=== PATIENT | female | born 1930 | race Caucasian/White ===

== ENCOUNTER 2017-10-21 07:59 | Inpatient (IN) ==
[2017-10-21] MEDS ORDERED: INFLUENZA VIRUS VACCINE 0.5 ML SYRINGE IM ONE (08:57)
[2017-10-21] MEDS ORDERED: BISACODYL 5 MG TABLET PO PRN (09:43)
[2017-10-21] MEDS ORDERED: ONDANSETRON 4 MG/2 ML VIAL IV PRN (09:43)
[2017-10-21] MEDS ORDERED: guaiFENesin/DM ER 600-30 MG TABLET PO PRN (09:43)
[2017-10-21] MEDS ORDERED: MAGNESIUM SULF RIDER 2 GM in PREMIX 1 EACH IV PRN (09:43)
[2017-10-21] MEDS ORDERED: diphenhydrAMINE CAP 25 MG CAPSULE PO PRN (09:43)
[2017-10-21] MEDS ORDERED: ZALEPLON 5 MG CAPSULE PO PRN (09:43)
[2017-10-21] MEDS ORDERED: MAGNESIUM SULF RIDER 4 GM in PREMIX 1 EACH IV PRN (09:43)
[2017-10-21 10:16] LABS: Basophils # 0.1 10*3/uL (0.0-0.2); Basophils % 0.5 % (0.0-0.8); Eosinophils # 0.1 10*3/uL (0.0-0.87); Eosinophils % 0.6 % (0.00-10.9); Hematocrit 40.7 VOL% (35.7-47.0); Hemoglobin 13.7 GM/DL (12.0-16.0); Immature Granulocytes % 0.4 %; Immature Granulocytes Absolute 0.05 #; Lymphocytes # 1.3 10*3/uL (1.4-4.0); Lymphocytes % 10.2 % (21.3-54.2); Mean Corpuscular HGB Conc 33.7 GM/DL (32-36); Mean Corpuscular Hemoglobin 32 PG (27-34); Mean Corpuscular Volume 93.8 FL (87-102); Mean Platelet Volume 9.7 FL (9.6-12.0); Monocytes # 1.2 10*3/uL (0.11-0.8); Monocytes % 8.8 % (1.7-12.7); Neutrophils # 10.4 10*3/uL (1.4-7.4); Neutrophils % 79.5 % (38.7-73.9); Platelet Count 334 T/CUMM (130-400); Red Blood Count 4.34 MC/CUMM (3.8-5.5); Red Cell Distribution Width 14.2 % (9.3-17.3); White Blood Count 13.1 T/CUMM (4-12)
[2017-10-21 10:48] LABS: Albumin 3.5 G/DL (3.4-5.0); Bilirubin,Total 0.7 MG/DL (0.2-1.0); Calcium 8.7 MG/DL (8.5-10.1); Osmolality,Calculated 280.4 MOS/KG (273-304); Potassium 3.8 MMOL/L (3.5-5.1); Total Protein 7.4 G/DL (6.4-8.3)
[2017-10-21 10:49] LABS: Troponin I Only < 0.015 NG/ML (0.00-0.045)
[2017-10-21] MEDS: ENOXAPARIN 40 MG/0.4 ML SYRINGE SUBCUT SCH (12:47)
[2017-10-21 13:09] LABS: Apearance,Urine CLEAR (Clear); Bacteria,Urine Occasional /HPF (Few); Bilirubin,Urine Negative (Negative); Blood, Urine Small mg/dL (Negative); Glucose,Urine (UA) Negative (Negative); Ketones,Urine Negative (Negative); Mucus,Urine Occasional /LPF (Occasional); Nitrite,Urine Negative (Negative); Protein,Urine Negative; RBC,Urine 1 /HPF (0-4); Squamous Epithelial Cell,Urine Occasional /HPF (0-10); Urine Color Yellow (Yellow); Urine Specific Gravity 1.028 (1.001-1.035); Urine Urobilinogen < 2.0 EU/DL (0.2-1.0); WBC,Urine 1 /HPF (0-6)
[2017-10-21 13:53] LABS: Troponin I Only < 0.015 NG/ML (0.00-0.045)
[2017-10-21] MEDS: FUROSEMIDE 40 MG/4 ML VIAL IV SCH (15:37)
[2017-10-21] MEDS ORDERED: MAGNESIUM SULF RIDER 2 GM in PREMIX 1 EACH IV ONE (15:37)
[2017-10-21 17:33] LABS: Troponin I Only < 0.015 NG/ML (0.00-0.045)
[2017-10-21] MEDS ORDERED: ATORVASTATIN 20 MG TABLET PO SCH (21:00)
[2017-10-21] MEDS: LOSARTAN 50 MG TABLET PO SCH (21:18)
[2017-10-21] MEDS: ACETAMINOPHEN 325 MG TABLET PO PRN (21:18)
[2017-10-21] MEDS: GLIMEPIRIDE 2 MG TABLET PO SCH (21:19)
[2017-10-21] MEDS: LEVOTHYROXINE 100 MCG TABLET PO SCH (21:19)
[2017-10-21] MEDS: CARVEDILOL 3.125 MG TABLET PO SCH (21:19)
[2017-10-21] MEDS: EZETIMIBE 10 MG TABLET PO SCH (21:19)
[2017-10-21] MEDS: CLOPIDOGREL 75 MG TABLET PO SCH (21:19)
[2017-10-21] MEDS: ASPIRIN CHEW 81 MG TABLET PO SCH (21:19)
[2017-10-22 04:43] LABS: Basophils # 0.1 10*3/uL (0.0-0.2); Basophils % 0.6 % (0.0-0.8); Eosinophils # 0.4 10*3/uL (0.0-0.87); Eosinophils % 3.9 % (0.00-10.9); Hematocrit 38.1 VOL% (35.7-47.0); Hemoglobin 12.8 GM/DL (12.0-16.0); Immature Granulocytes % 0.3 %; Immature Granulocytes Absolute 0.03 #; Lymphocytes % 21.1 % (21.3-54.2); Mean Corpuscular HGB Conc 33.6 GM/DL (32-36); Mean Corpuscular Hemoglobin 32 PG (27-34); Mean Corpuscular Volume 94.3 FL (87-102); Mean Platelet Volume 9.8 FL (9.6-12.0); Monocytes # 1.2 10*3/uL (0.11-0.8); Monocytes % 12.3 % (1.7-12.7); Neutrophils # 5.8 10*3/uL (1.4-7.4); Neutrophils % 61.8 % (38.7-73.9); Platelet Count 301 T/CUMM (130-400); Red Blood Count 4.04 MC/CUMM (3.8-5.5); Red Cell Distribution Width 14.2 % (9.3-17.3); White Blood Count 9.4 T/CUMM (4-12)
[2017-10-22 05:01] LABS: Calcium 8.6 MG/DL (8.5-10.1); Magnesium 2.8 MG/DL (1.8-2.4); Osmolality,Calculated 277.7 MOS/KG (273-304); Potassium 3.8 MMOL/L (3.5-5.1)
[2017-10-22] MEDS: CARVEDILOL 3.125 MG TABLET PO SCH ×2 (08:33→20:47)
[2017-10-22] MEDS: PANTOPRAZOLE 40 MG TABLET PO SCH (08:33)
[2017-10-22] MEDS: FUROSEMIDE 40 MG/4 ML VIAL IV SCH ×2 (08:34→15:51)
[2017-10-22] MEDS: ENOXAPARIN 40 MG/0.4 ML SYRINGE SUBCUT SCH (11:46)
[2017-10-22] MEDS: INSULIN REGULAR 100 UNIT/ML SUBCUT SCH (16:40)
[2017-10-22] MEDS: EZETIMIBE 10 MG TABLET PO SCH (20:47)
[2017-10-22] MEDS: LOSARTAN 50 MG TABLET PO SCH (20:47)
[2017-10-22] MEDS: GLIMEPIRIDE 2 MG TABLET PO SCH (20:47)
[2017-10-22] MEDS: LEVOTHYROXINE 100 MCG TABLET PO SCH (20:48)
[2017-10-22] MEDS: ASPIRIN CHEW 81 MG TABLET PO SCH (20:48)
[2017-10-22] MEDS: CLOPIDOGREL 75 MG TABLET PO SCH (20:48)
[2017-10-23 05:13] LABS: Hematocrit 38.1 VOL% (35.7-47.0); Mean Corpuscular HGB Conc 34.1 GM/DL (32-36); Mean Corpuscular Hemoglobin 32 PG (27-34); Mean Corpuscular Volume 92.7 FL (87-102); Platelet Count 334 T/CUMM (130-400); Red Blood Count 4.11 MC/CUMM (3.8-5.5); Red Cell Distribution Width 13.6 % (9.3-17.3); White Blood Count 8.8 T/CUMM (4-12)
[2017-10-23 05:14] LABS: Basophils # 0.1 10*3/uL (0.0-0.2); Basophils % 0.8 % (0.0-0.8); Eosinophils # 0.5 10*3/uL (0.0-0.87); Eosinophils % 5.6 % (0.00-10.9); Immature Granulocytes % 0.5 %; Immature Granulocytes Absolute 0.04 #; Lymphocytes # 1.8 10*3/uL (1.4-4.0); Lymphocytes % 20.9 % (21.3-54.2); Mean Platelet Volume 9.8 FL (9.6-12.0); Monocytes % 11.9 % (1.7-12.7); Neutrophils # 5.3 10*3/uL (1.4-7.4); Neutrophils % 60.3 % (38.7-73.9)
[2017-10-23 05:37] LABS: Calcium 8.4 MG/DL (8.5-10.1); Magnesium 2.4 MG/DL (1.8-2.4); Osmolality,Calculated 281.5 MOS/KG (273-304); Potassium 3.8 MMOL/L (3.5-5.1)
[2017-10-23 05:39] LABS: Calcium 8.5 MG/DL (8.5-10.1); Magnesium 2.3 MG/DL (1.8-2.4); Osmolality,Calculated 280.7 MOS/KG (273-304); Potassium 3.8 MMOL/L (3.5-5.1)
[2017-10-23] MEDS ORDERED: POTASSIUM CHLORIDE RIDER 10 MEQ in PREMIX 1 EACH IV PRN (08:40)
[2017-10-23] MEDS ORDERED: MAGNESIUM SULF RIDER 2 GM in PREMIX 1 EACH IV PRN (08:40)
[2017-10-23] MEDS: INSULIN REGULAR 100 UNIT/ML SUBCUT SCH ×2 (08:42→15:57)
[2017-10-23] MEDS: FUROSEMIDE 40 MG/4 ML VIAL IV SCH ×2 (08:45→15:57)
[2017-10-23] MEDS: CARVEDILOL 3.125 MG TABLET PO SCH ×2 (08:45→21:53)
[2017-10-23] MEDS: PANTOPRAZOLE 40 MG TABLET PO SCH (08:45)
[2017-10-23] MEDS ORDERED: DIAZEPAM 5 MG TABLET PO ONE (08:55)
[2017-10-23] MEDS ORDERED: diphenhydrAMINE CAP 25 MG CAPSULE PO ONE (08:55)
[2017-10-23] MEDS: SODIUM CHLORIDE 0.45% 1,000 ML IV SCH (10:37)
[2017-10-23] MEDS: ENOXAPARIN 40 MG/0.4 ML SYRINGE SUBCUT SCH (11:31)
[2017-10-23] MEDS ORDERED: DEXTROSE 50% 25 GM/50 ML VIAL IV PRN (15:10)
[2017-10-23] MEDS ORDERED: GLUCAGON 1 MG VIAL IM PRN (15:10)
[2017-10-23] MEDS ORDERED: MORPHINE 2 MG/1 ML SYRINGE IV PRN (18:22)
[2017-10-23] MEDS: LEVOTHYROXINE 100 MCG TABLET PO SCH (21:53)
[2017-10-23] MEDS: LOSARTAN 50 MG TABLET PO SCH (21:53)
[2017-10-23] MEDS: CLOPIDOGREL 75 MG TABLET PO SCH (21:53)
[2017-10-23] MEDS: ASPIRIN CHEW 81 MG TABLET PO SCH (21:53)
[2017-10-23] MEDS: GLIMEPIRIDE 2 MG TABLET PO SCH (21:53)
[2017-10-23] MEDS: EZETIMIBE 10 MG TABLET PO SCH (23:57)
[2017-10-24] MEDS: SODIUM CHLORIDE 0.45% 1,000 ML IV SCH (04:48)
[2017-10-24 04:52] LABS: Basophils # 0.1 10*3/uL (0.0-0.2); Basophils % 0.8 % (0.0-0.8); Eosinophils # 0.5 10*3/uL (0.0-0.87); Hematocrit 38.6 VOL% (35.7-47.0); Hemoglobin 12.6 GM/DL (12.0-16.0); Immature Granulocytes % 0.4 %; Immature Granulocytes Absolute 0.03 #; Lymphocytes # 1.7 10*3/uL (1.4-4.0); Lymphocytes % 20.6 % (21.3-54.2); Mean Corpuscular HGB Conc 32.6 GM/DL (32-36); Mean Corpuscular Hemoglobin 31 PG (27-34); Mean Corpuscular Volume 94.8 FL (87-102); Monocytes # 1.1 10*3/uL (0.11-0.8); Monocytes % 13.4 % (1.7-12.7); Neutrophils # 4.9 10*3/uL (1.4-7.4); Neutrophils % 58.8 % (38.7-73.9); Platelet Count 329 T/CUMM (130-400); Red Blood Count 4.07 MC/CUMM (3.8-5.5); Red Cell Distribution Width 13.5 % (9.3-17.3); White Blood Count 8.3 T/CUMM (4-12)
[2017-10-24 05:14] LABS: Magnesium 2.3 MG/DL (1.8-2.4); Osmolality,Calculated 279.7 MOS/KG (273-304); Potassium 4.5 MMOL/L (3.5-5.1)
[2017-10-24] MEDS ORDERED: diphenhydrAMINE CAP 25 MG CAPSULE PO ONE (06:00)
[2017-10-24] MEDS ORDERED: DIAZEPAM 5 MG TABLET PO ONE (06:00)
[2017-10-24] MEDS ORDERED: POTASSIUM CHLORIDE RIDER 10 MEQ in PREMIX 1 EACH IV PRN (06:00)
[2017-10-24] MEDS ORDERED: MAGNESIUM SULF RIDER 2 GM in PREMIX 1 EACH IV PRN (06:00)
[2017-10-24] MEDS ORDERED: ASPIRIN 325 MG TABLET PO ONE (07:00)
[2017-10-24] MEDS: SODIUM CHLORIDE 0.9% 1,000 ML IV SCH ×2 (07:11→15:31)
[2017-10-24] MEDS: FUROSEMIDE 40 MG/4 ML VIAL IV SCH ×2 (08:58→15:19)
[2017-10-24] MEDS: INSULIN REGULAR 100 UNIT/ML SUBCUT SCH ×2 (08:58→15:39)
[2017-10-24] MEDS: CARVEDILOL 3.125 MG TABLET PO SCH ×2 (10:24→21:27)
[2017-10-24] MEDS: PANTOPRAZOLE 40 MG TABLET PO SCH (10:24)
[2017-10-24] MEDS: ENOXAPARIN 40 MG/0.4 ML SYRINGE SUBCUT SCH (10:25)
[2017-10-24] MEDS ORDERED: LIDOCAINE 1% 20 ML VIAL ONE (12:35)
[2017-10-24] MEDS ORDERED: MEPERIDINE 25 MG/1 ML VIAL ONE (12:36)
[2017-10-24] MEDS ORDERED: MIDAZOLAM 2 MG/2 ML VIAL ONE (12:37)
[2017-10-24] MEDS: ACETAMINOPHEN 325 MG TABLET PO PRN (15:30)
[2017-10-24] MEDS: CLOPIDOGREL 75 MG TABLET PO SCH (21:27)
[2017-10-24] MEDS: EZETIMIBE 10 MG TABLET PO SCH (21:27)
[2017-10-24] MEDS: LEVOTHYROXINE 100 MCG TABLET PO SCH (21:27)
[2017-10-24] MEDS: LOSARTAN 50 MG TABLET PO SCH (21:27)
[2017-10-24] MEDS: ASPIRIN CHEW 81 MG TABLET PO SCH (21:27)
[2017-10-24] MEDS: GLIMEPIRIDE 2 MG TABLET PO SCH (21:27)
[2017-10-25 04:43] LABS: Basophils % 0.5 % (0.0-0.8); Eosinophils # 0.4 10*3/uL (0.0-0.87); Eosinophils % 5.2 % (0.00-10.9); Hematocrit 35.5 VOL% (35.7-47.0); Hemoglobin 11.9 GM/DL (12.0-16.0); Immature Granulocytes % 0.4 %; Immature Granulocytes Absolute 0.03 #; Lymphocytes # 1.5 10*3/uL (1.4-4.0); Lymphocytes % 18.5 % (21.3-54.2); Mean Corpuscular HGB Conc 33.5 GM/DL (32-36); Mean Corpuscular Hemoglobin 31 PG (27-34); Mean Corpuscular Volume 93.4 FL (87-102); Mean Platelet Volume 10.1 FL (9.6-12.0); Monocytes % 12.3 % (1.7-12.7); Neutrophils % 63.1 % (38.7-73.9); Platelet Count 332 T/CUMM (130-400); Red Cell Distribution Width 13.5 % (9.3-17.3)
[2017-10-25 05:40] LABS: Calcium 8.1 MG/DL (8.5-10.1); Osmolality,Calculated 275.7 MOS/KG (273-304); Potassium 4.1 MMOL/L (3.5-5.1)
[2017-10-25] MEDS: INSULIN REGULAR 100 UNIT/ML SUBCUT SCH ×2 (07:31→17:06)
[2017-10-25] MEDS: PANTOPRAZOLE 40 MG TABLET PO SCH (09:37)
[2017-10-25] MEDS: CARVEDILOL 3.125 MG TABLET PO SCH (09:37)
[2017-10-25] MEDS: FUROSEMIDE 40 MG/4 ML VIAL IV SCH (09:37)
[2017-10-25] MEDS: FUROSEMIDE 40 MG TABLET PO SCH (17:22)
[2017-10-25] MEDS ORDERED: ROSUVASTATIN 10 MG TABLET PO SCH (21:00)
[2017-10-25] MEDS: CLOPIDOGREL 75 MG TABLET PO SCH (21:35)
[2017-10-25] MEDS: GLIMEPIRIDE 2 MG TABLET PO SCH (21:35)
[2017-10-25] MEDS: ASPIRIN CHEW 81 MG TABLET PO SCH (21:36)
[2017-10-25] MEDS: CARVEDILOL 6.25 MG TABLET PO SCH (21:36)
[2017-10-25] MEDS: LEVOTHYROXINE 100 MCG TABLET PO SCH (21:36)
[2017-10-25] MEDS: EZETIMIBE 10 MG TABLET PO SCH (21:36)
[2017-10-25] MEDS: LOSARTAN 50 MG TABLET PO SCH (21:36)
[2017-10-26] MEDS: INSULIN REGULAR 100 UNIT/ML SUBCUT SCH (08:10)
[2017-10-26] MEDS: CARVEDILOL 6.25 MG TABLET PO SCH (09:13)
[2017-10-26] MEDS: FUROSEMIDE 40 MG TABLET PO SCH (09:14)
[2017-10-26] MEDS: PANTOPRAZOLE 40 MG TABLET PO SCH (09:14)
[2017-10-26 12:12] VITALS: BP 135/55
== END 2017-10-26 14:40 | disposition home or self-care (01) | DRG 287 ==
LOC: N.TELEN 08:16 → INTOOBSV 08:16
PROVIDERS: ADMIT Internal Medicine Cardiovascular Disease; ATTEND Internal Medicine Clinical Cardiac Electrophysiology

== ENCOUNTER 2018-04-05 07:58 | Inpatient (IN) ==
[2018-04-05] MEDS ORDERED: cefTRIAXone 1,000 MG in SODIUM CHLORIDE 0.9% 100 ML IV STA (08:31)
[2018-04-05 08:57] LABS: Basophils # 0.1 10*3/uL (0.0-0.2); Basophils % 0.4 % (0.0-0.8); Eosinophils # 0.2 10*3/uL (0.0-0.87); Eosinophils % 1.2 % (0.00-10.9); Hematocrit 40.7 VOL% (35.7-47.0); Hemoglobin 13.6 GM/DL (12.0-16.0); Immature Granulocytes % 0.6 %; Immature Granulocytes Absolute 0.11 #; Lymphocytes # 1.4 10*3/uL (1.4-4.0); Lymphocytes % 8.1 % (21.3-54.2); Mean Corpuscular HGB Conc 33.4 GM/DL (32-36); Mean Corpuscular Hemoglobin 32 PG (27-34); Mean Corpuscular Volume 94.7 FL (87-102); Mean Platelet Volume 9.1 FL (9.6-12.0); Monocytes # 1.9 10*3/uL (0.11-0.8); Monocytes % 10.8 % (1.7-12.7); Neutrophils # 14.1 10*3/uL (1.4-7.4); Neutrophils % 78.9 % (38.7-73.9); Platelet Count 378 T/CUMM (130-400); Red Cell Distribution Width 14.7 % (9.3-17.3); White Blood Count 17.8 T/CUMM (4-12)
[2018-04-05 09:27] LABS: Albumin 3.1 G/DL (3.4-5.0); Bilirubin,Total 0.6 MG/DL (0.2-1.0); Calcium 8.6 MG/DL (8.5-10.1); Osmolality,Calculated 278.8 MOS/KG (273-304); Potassium 3.7 MMOL/L (3.5-5.1); Total Protein 7.7 G/DL (6.4-8.3)
[2018-04-05 09:28] LABS: Lactic Acid 1.2 MMOL/L (0.4-2.0)
[2018-04-05] MEDS ORDERED: DEXTROSE 50% 25 GM/50 ML VIAL IV PRN (09:43)
[2018-04-05] MEDS ORDERED: ACETAMINOPHEN 325 MG TABLET PO PRN (09:43)
[2018-04-05] MEDS ORDERED: GLUCAGON 1 MG VIAL IM PRN (09:43)
[2018-04-05] MEDS ORDERED: ONDANSETRON 4 MG/2 ML VIAL IV PRN (09:43)
[2018-04-05] MEDS ORDERED: NON-FORMULARY MEDICATION (Epinephrine [Epipen 2-Pak] 0.3 MG) SUBCUT PRN (09:47)
[2018-04-05] MEDS ORDERED: cefTRIAXone 1,000 MG in SYRINGE 1 EACH IV SCH (10:00)
[2018-04-05] MEDS: SODIUM CHLORIDE 0.45% 1,000 ML IV SCH (11:59)
[2018-04-05] MEDS: INSULIN LISPRO 100 UNIT/ML SUBCUT SCH ×3 (12:00→21:45)
[2018-04-05] MEDS: ENOXAPARIN 40 MG/0.4 ML SYRINGE SUBCUT SCH (12:00)
[2018-04-05] MEDS: FUROSEMIDE 40 MG TABLET PO SCH (16:28)
[2018-04-05] MEDS: ASCORBIC ACID 500 MG TABLET PO SCH (21:44)
[2018-04-05] MEDS: DOCUSATE SODIUM 100 MG CAPSULE PO SCH (21:44)
[2018-04-05] MEDS: LOSARTAN 50 MG TABLET PO SCH (21:44)
[2018-04-05] MEDS: MULTIVITAMIN (CENTRUM) TABLET PO SCH (21:44)
[2018-04-05] MEDS: LEVOTHYROXINE 100 MCG TABLET PO SCH (21:44)
[2018-04-05] MEDS: ASPIRIN CHEW 81 MG TABLET PO SCH (21:44)
[2018-04-05] MEDS: CARVEDILOL 6.25 MG TABLET PO SCH (21:44)
[2018-04-05] MEDS: GLIMEPIRIDE 2 MG TABLET PO SCH (21:45)
[2018-04-05] MEDS: CLOPIDOGREL 75 MG TABLET PO SCH (21:45)
[2018-04-05] MEDS: BIMATOPROST 0.01% OPH SOLN 2.5 ML BOTTLE BOTH EYES SCH (21:45)
[2018-04-05] MEDS ORDERED: FLUCONAZOLE 200 MG TABLET PO ONE (23:30)
[2018-04-06] MEDS: MICONAZOLE 2% VAG CREAM 45 GM TUBE VAG SCH ×2 (00:23→21:37)
[2018-04-06] MEDS: NYSTATIN CREAM 15 GM TUBE TOP SCH ×3 (00:23→21:37)
[2018-04-06] MEDS: KETOROLAC 15 MG/1 ML VIAL IV SCH ×2 (00:24→10:38)
[2018-04-06] MEDS: SODIUM CHLORIDE 0.45% 1,000 ML IV SCH ×2 (00:35→14:07)
[2018-04-06] MEDS ORDERED: hydrOXYzine HCL 25 MG TABLET PO ONE (05:08)
[2018-04-06 06:37] LABS: Basophils # 0.1 10*3/uL (0.0-0.2); Basophils % 0.6 % (0.0-0.8); Eosinophils # 0.3 10*3/uL (0.0-0.87); Eosinophils % 2.4 % (0.00-10.9); Hematocrit 42.1 VOL% (35.7-47.0); Hemoglobin 14.3 GM/DL (12.0-16.0); Immature Granulocytes Absolute 0.13 #; Lymphocytes # 1.7 10*3/uL (1.4-4.0); Lymphocytes % 12.8 % (21.3-54.2); Mean Corpuscular Hemoglobin 32 PG (27-34); Mean Corpuscular Volume 92.9 FL (87-102); Mean Platelet Volume 9.6 FL (9.6-12.0); Monocytes # 1.5 10*3/uL (0.11-0.8); Monocytes % 11.3 % (1.7-12.7); Neutrophils # 9.3 10*3/uL (1.4-7.4); Neutrophils % 71.9 % (38.7-73.9); Platelet Count 386 T/CUMM (130-400); Red Blood Count 4.53 MC/CUMM (3.8-5.5); Red Cell Distribution Width 14.6 % (9.3-17.3); White Blood Count 12.9 T/CUMM (4-12)
[2018-04-06 07:01] LABS: Calcium 8.5 MG/DL (8.5-10.1); Potassium 3.9 MMOL/L (3.5-5.1)
[2018-04-06] MEDS: cefTRIAXone 1,000 MG in SYRINGE 1 EACH IV SCH (09:23)
[2018-04-06] MEDS: CARVEDILOL 6.25 MG TABLET PO SCH ×2 (09:23→21:34)
[2018-04-06] MEDS: FUROSEMIDE 40 MG TABLET PO SCH ×2 (09:23→16:25)
[2018-04-06] MEDS: BRIMONIDINE 0.1% OPH SOLN 5 ML BOTTLE BOTH EYES SCH (09:24)
[2018-04-06] MEDS: PANTOPRAZOLE 40 MG TABLET PO SCH (09:24)
[2018-04-06] MEDS: DOCUSATE SODIUM 100 MG CAPSULE PO SCH ×2 (09:24→21:34)
[2018-04-06] MEDS: INSULIN LISPRO 100 UNIT/ML SUBCUT SCH ×4 (09:25→21:42)
[2018-04-06] MEDS: ENOXAPARIN 40 MG/0.4 ML SYRINGE SUBCUT SCH (09:25)
[2018-04-06] MEDS ORDERED: POLYETHYLENE GLYCOL POWDER 17 GM PACK PO PRN (15:57)
[2018-04-06] MEDS: MULTIVITAMIN (CENTRUM) TABLET PO SCH (21:33)
[2018-04-06] MEDS: GLIMEPIRIDE 2 MG TABLET PO SCH (21:34)
[2018-04-06] MEDS: ASCORBIC ACID 500 MG TABLET PO SCH (21:34)
[2018-04-06] MEDS: CLOPIDOGREL 75 MG TABLET PO SCH (21:34)
[2018-04-06] MEDS: LOSARTAN 50 MG TABLET PO SCH (21:34)
[2018-04-06] MEDS: ASPIRIN CHEW 81 MG TABLET PO SCH (21:34)
[2018-04-06] MEDS: LEVOTHYROXINE 100 MCG TABLET PO SCH (21:34)
[2018-04-06] MEDS: BIMATOPROST 0.01% OPH SOLN 2.5 ML BOTTLE BOTH EYES SCH (21:35)
[2018-04-07] MEDS: KETOROLAC 15 MG/1 ML VIAL IV SCH ×3 (01:31→23:51)
[2018-04-07] MEDS: PANTOPRAZOLE 40 MG TABLET PO SCH (08:17)
[2018-04-07] MEDS: NYSTATIN CREAM 15 GM TUBE TOP SCH (08:18)
[2018-04-07] MEDS: BRIMONIDINE 0.1% OPH SOLN 5 ML BOTTLE BOTH EYES SCH (08:18)
[2018-04-07] MEDS: DOCUSATE SODIUM 100 MG CAPSULE PO SCH ×2 (08:18→20:37)
[2018-04-07] MEDS: INSULIN LISPRO 100 UNIT/ML SUBCUT SCH ×4 (08:18→20:44)
[2018-04-07] MEDS: CARVEDILOL 6.25 MG TABLET PO SCH ×2 (08:18→20:37)
[2018-04-07] MEDS: FUROSEMIDE 40 MG TABLET PO SCH ×2 (08:18→16:16)
[2018-04-07] MEDS: cefTRIAXone 1,000 MG in SYRINGE 1 EACH IV SCH (08:19)
[2018-04-07] MEDS: SODIUM CHLORIDE 0.45% 1,000 ML IV SCH ×2 (08:23→23:17)
[2018-04-07] MEDS: ENOXAPARIN 40 MG/0.4 ML SYRINGE SUBCUT SCH (09:48)
[2018-04-07] MEDS: ALBUTEROL 2.5 MG/3 ML NEB RESP TX PRN (20:03)
[2018-04-07] MEDS: LEVOTHYROXINE 100 MCG TABLET PO SCH (20:37)
[2018-04-07] MEDS: CLOPIDOGREL 75 MG TABLET PO SCH (20:37)
[2018-04-07] MEDS: ASCORBIC ACID 500 MG TABLET PO SCH (20:37)
[2018-04-07] MEDS: LOSARTAN 50 MG TABLET PO SCH (20:37)
[2018-04-07] MEDS: MULTIVITAMIN (CENTRUM) TABLET PO SCH (20:37)
[2018-04-07] MEDS: ASPIRIN CHEW 81 MG TABLET PO SCH (20:37)
[2018-04-07] MEDS: GLIMEPIRIDE 2 MG TABLET PO SCH (20:37)
[2018-04-07] MEDS: MICONAZOLE 2% VAG CREAM 45 GM TUBE VAG SCH (20:40)
[2018-04-07] MEDS: BIMATOPROST 0.01% OPH SOLN 2.5 ML BOTTLE BOTH EYES SCH (20:40)
[2018-04-08] MEDS: NYSTATIN CREAM 15 GM TUBE TOP SCH ×3 (07:18→21:08)
[2018-04-08 08:10] LABS: Basophils # 0.1 10*3/uL (0.0-0.2); Basophils % 0.4 % (0.0-0.8); Eosinophils # 0.4 10*3/uL (0.0-0.87); Eosinophils % 2.4 % (0.00-10.9); Hematocrit 38.2 VOL% (35.7-47.0); Hemoglobin 12.5 GM/DL (12.0-16.0); Immature Granulocytes Absolute 0.16 #; Lymphocytes # 1.2 10*3/uL (1.4-4.0); Lymphocytes % 7.3 % (21.3-54.2); Mean Corpuscular HGB Conc 32.7 GM/DL (32-36); Mean Corpuscular Hemoglobin 32 PG (27-34); Mean Corpuscular Volume 96.5 FL (87-102); Mean Platelet Volume 9.4 FL (9.6-12.0); Monocytes # 1.6 10*3/uL (0.11-0.8); Monocytes % 9.9 % (1.7-12.7); Neutrophils # 12.7 10*3/uL (1.4-7.4); Platelet Count 349 T/CUMM (130-400); Red Blood Count 3.96 MC/CUMM (3.8-5.5); Red Cell Distribution Width 14.6 % (9.3-17.3); White Blood Count 16.1 T/CUMM (4-12)
[2018-04-08] MEDS: FUROSEMIDE 40 MG TABLET PO SCH ×2 (09:03→16:20)
[2018-04-08] MEDS: PANTOPRAZOLE 40 MG TABLET PO SCH (09:03)
[2018-04-08] MEDS: CARVEDILOL 6.25 MG TABLET PO SCH ×2 (09:03→21:06)
[2018-04-08] MEDS: cefTRIAXone 1,000 MG in SYRINGE 1 EACH IV SCH (09:03)
[2018-04-08] MEDS: DOCUSATE SODIUM 100 MG CAPSULE PO SCH ×2 (09:03→21:06)
[2018-04-08] MEDS: BRIMONIDINE 0.1% OPH SOLN 5 ML BOTTLE BOTH EYES SCH (09:04)
[2018-04-08] MEDS: INSULIN LISPRO 100 UNIT/ML SUBCUT SCH ×4 (09:06→21:25)
[2018-04-08] MEDS: KETOROLAC 15 MG/1 ML VIAL IV SCH ×2 (11:05→22:21)
[2018-04-08] MEDS: ENOXAPARIN 40 MG/0.4 ML SYRINGE SUBCUT SCH (11:05)
[2018-04-08] MEDS: SODIUM CHLORIDE 0.45% 1,000 ML IV SCH (12:19)
[2018-04-08] MEDS: ALBUTEROL 2.5 MG/3 ML NEB RESP TX PRN (19:55)
[2018-04-08] MEDS: LOSARTAN 50 MG TABLET PO SCH (21:06)
[2018-04-08] MEDS: ASPIRIN CHEW 81 MG TABLET PO SCH (21:06)
[2018-04-08] MEDS: CLOPIDOGREL 75 MG TABLET PO SCH (21:06)
[2018-04-08] MEDS: LEVOTHYROXINE 100 MCG TABLET PO SCH (21:06)
[2018-04-08] MEDS: ASCORBIC ACID 500 MG TABLET PO SCH (21:07)
[2018-04-08] MEDS: MULTIVITAMIN (CENTRUM) TABLET PO SCH (21:07)
[2018-04-08] MEDS: GLIMEPIRIDE 2 MG TABLET PO SCH (21:07)
[2018-04-08] MEDS: MICONAZOLE 2% VAG CREAM 45 GM TUBE VAG SCH (21:08)
[2018-04-08] MEDS: BIMATOPROST 0.01% OPH SOLN 2.5 ML BOTTLE BOTH EYES SCH (21:09)
[2018-04-08] MEDS: ALBUTEROL/IPRATROPIUM 3 ML NEB RESP TX SCH (23:18)
[2018-04-09] MEDS: SODIUM CHLORIDE 0.45% 1,000 ML IV SCH (02:56)
[2018-04-09] MEDS: ALBUTEROL/IPRATROPIUM 3 ML NEB RESP TX SCH ×5 (03:45→18:57)
[2018-04-09] MEDS: INSULIN LISPRO 100 UNIT/ML SUBCUT SCH ×4 (08:25→21:46)
[2018-04-09] MEDS: ENOXAPARIN 40 MG/0.4 ML SYRINGE SUBCUT SCH (10:14)
[2018-04-09] MEDS: cefTRIAXone 1,000 MG in SYRINGE 1 EACH IV SCH (10:15)
[2018-04-09] MEDS: METHEN/SOD PHOS/METH BLUE/HYOS TABLET PO PRN ×2 (10:17→21:38)
[2018-04-09] MEDS: DOCUSATE SODIUM 100 MG CAPSULE PO SCH ×2 (10:18→21:40)
[2018-04-09] MEDS: PANTOPRAZOLE 40 MG TABLET PO SCH (10:18)
[2018-04-09] MEDS: FUROSEMIDE 40 MG TABLET PO SCH ×2 (10:18→17:02)
[2018-04-09] MEDS: CARVEDILOL 6.25 MG TABLET PO SCH ×2 (10:19→21:41)
[2018-04-09] MEDS: BRIMONIDINE 0.1% OPH SOLN 5 ML BOTTLE BOTH EYES SCH (10:19)
[2018-04-09] MEDS: NYSTATIN CREAM 15 GM TUBE TOP SCH ×2 (11:13→21:43)
[2018-04-09] MEDS: KETOROLAC 15 MG/1 ML VIAL IV SCH ×2 (11:13→23:00)
[2018-04-09] MEDS: ASPIRIN CHEW 81 MG TABLET PO SCH (21:38)
[2018-04-09] MEDS: MULTIVITAMIN (CENTRUM) TABLET PO SCH (21:40)
[2018-04-09] MEDS: LOSARTAN 50 MG TABLET PO SCH (21:40)
[2018-04-09] MEDS: ASCORBIC ACID 500 MG TABLET PO SCH (21:40)
[2018-04-09] MEDS: CLOPIDOGREL 75 MG TABLET PO SCH (21:40)
[2018-04-09] MEDS: LEVOTHYROXINE 100 MCG TABLET PO SCH (21:40)
[2018-04-09] MEDS: GLIMEPIRIDE 2 MG TABLET PO SCH (21:41)
[2018-04-09] MEDS: MICONAZOLE 2% VAG CREAM 45 GM TUBE VAG SCH (21:43)
[2018-04-09] MEDS: BIMATOPROST 0.01% OPH SOLN 2.5 ML BOTTLE BOTH EYES SCH (21:44)
[2018-04-10] MEDS: ALBUTEROL/IPRATROPIUM 3 ML NEB RESP TX SCH ×7 (00:22→23:50)
[2018-04-10 05:37] LABS: Basophils # 0.1 10*3/uL (0.0-0.2); Basophils % 0.6 % (0.0-0.8); Eosinophils # 0.4 10*3/uL (0.0-0.87); Eosinophils % 3.4 % (0.00-10.9); Hemoglobin 10.8 GM/DL (12.0-16.0); Immature Granulocytes % 0.6 %; Immature Granulocytes Absolute 0.07 #; Lymphocytes # 1.6 10*3/uL (1.4-4.0); Lymphocytes % 14.7 % (21.3-54.2); Mean Corpuscular HGB Conc 32.7 GM/DL (32-36); Mean Corpuscular Hemoglobin 31 PG (27-34); Mean Corpuscular Volume 95.7 FL (87-102); Mean Platelet Volume 9.7 FL (9.6-12.0); Monocytes # 1.2 10*3/uL (0.11-0.8); Monocytes % 11.3 % (1.7-12.7); Neutrophils # 7.5 10*3/uL (1.4-7.4); Neutrophils % 69.4 % (38.7-73.9); Platelet Count 331 T/CUMM (130-400); Red Blood Count 3.45 MC/CUMM (3.8-5.5); Red Cell Distribution Width 14.6 % (9.3-17.3); White Blood Count 10.8 T/CUMM (4-12)
[2018-04-10 06:18] LABS: Calcium 8.5 MG/DL (8.5-10.1); Osmolality,Calculated 279.3 MOS/KG (273-304); Potassium 3.6 MMOL/L (3.5-5.1)
[2018-04-10] MEDS: SODIUM CHLORIDE 0.45% 1,000 ML IV SCH (06:42)
[2018-04-10] MEDS: AZITHROMYCIN INJ 500 MG in SODIUM CHLORIDE 0.9% 250 ML IV SCH (09:03)
[2018-04-10] MEDS: DOCUSATE SODIUM 100 MG CAPSULE PO SCH ×3 (09:12→22:45)
[2018-04-10] MEDS: FUROSEMIDE 40 MG TABLET PO SCH ×2 (09:13→16:17)
[2018-04-10] MEDS: PANTOPRAZOLE 40 MG TABLET PO SCH (09:13)
[2018-04-10] MEDS: ENOXAPARIN 30 MG/0.3 ML SYRINGE SUBCUT SCH (09:13)
[2018-04-10] MEDS: BRIMONIDINE 0.1% OPH SOLN 5 ML BOTTLE BOTH EYES SCH (09:13)
[2018-04-10] MEDS: CARVEDILOL 6.25 MG TABLET PO SCH ×3 (09:13→22:45)
[2018-04-10] MEDS: cefTRIAXone 1,000 MG in SYRINGE 1 EACH IV SCH (09:15)
[2018-04-10] MEDS: INSULIN LISPRO 100 UNIT/ML SUBCUT SCH ×4 (09:18→22:05)
[2018-04-10] MEDS: NYSTATIN CREAM 15 GM TUBE TOP SCH ×2 (09:19→22:06)
[2018-04-10] MEDS: DEXTROMETHORPHAN ER 6 MG/ML 90 ML/BOTTLE PO PRN ×2 (09:21→22:04)
[2018-04-10] MEDS: KETOROLAC 15 MG/1 ML VIAL IV SCH (10:37)
[2018-04-10] MEDS: METHEN/SOD PHOS/METH BLUE/HYOS TABLET PO PRN (21:59)
[2018-04-10] MEDS: LEVOTHYROXINE 100 MCG TABLET PO SCH ×2 (21:59→22:44)
[2018-04-10] MEDS: LOSARTAN 50 MG TABLET PO SCH ×2 (22:00→22:45)
[2018-04-10] MEDS: ASPIRIN CHEW 81 MG TABLET PO SCH ×2 (22:02→22:45)
[2018-04-10] MEDS: ASCORBIC ACID 500 MG TABLET PO SCH (22:03)
[2018-04-10] MEDS: GLIMEPIRIDE 2 MG TABLET PO SCH ×2 (22:03→22:45)
[2018-04-10] MEDS: CLOPIDOGREL 75 MG TABLET PO SCH ×2 (22:03→22:44)
[2018-04-10] MEDS: MULTIVITAMIN (CENTRUM) TABLET PO SCH ×2 (22:05→22:06)
[2018-04-10] MEDS: MICONAZOLE 2% VAG CREAM 45 GM TUBE VAG SCH (22:06)
[2018-04-10] MEDS: BIMATOPROST 0.01% OPH SOLN 2.5 ML BOTTLE BOTH EYES SCH (22:06)
[2018-04-11] MEDS: ALBUTEROL/IPRATROPIUM 3 ML NEB RESP TX SCH ×6 (03:29→23:33)
[2018-04-11] MEDS: INSULIN LISPRO 100 UNIT/ML SUBCUT SCH ×4 (07:38→20:36)
[2018-04-11] MEDS: cefTRIAXone 1,000 MG in SYRINGE 1 EACH IV SCH (08:18)
[2018-04-11] MEDS: ENOXAPARIN 30 MG/0.3 ML SYRINGE SUBCUT SCH (08:19)
[2018-04-11] MEDS: FUROSEMIDE 40 MG TABLET PO SCH ×2 (08:31→16:53)
[2018-04-11] MEDS: DOCUSATE SODIUM 100 MG CAPSULE PO SCH ×2 (08:31→20:36)
[2018-04-11] MEDS: PANTOPRAZOLE 40 MG TABLET PO SCH (08:32)
[2018-04-11] MEDS: CARVEDILOL 6.25 MG TABLET PO SCH ×2 (08:32→20:36)
[2018-04-11] MEDS: AZITHROMYCIN INJ 500 MG in SODIUM CHLORIDE 0.9% 250 ML IV SCH (08:57)
[2018-04-11] MEDS: BRIMONIDINE 0.1% OPH SOLN 5 ML BOTTLE BOTH EYES SCH (08:57)
[2018-04-11] MEDS: NYSTATIN CREAM 15 GM TUBE TOP SCH ×2 (08:59→20:36)
[2018-04-11] MEDS: NYSTATIN 500,000 UNIT/5 ML UDCUP SWISH/SWAL SCH ×3 (12:50→20:36)
[2018-04-11] MEDS ORDERED: NYSTATIN 500,000 UNIT/5 ML UDCUP SWISH/SWAL SCH (13:00)
[2018-04-11] MEDS: LOSARTAN 50 MG TABLET PO SCH (20:33)
[2018-04-11] MEDS: CLOPIDOGREL 75 MG TABLET PO SCH (20:33)
[2018-04-11] MEDS: METHEN/SOD PHOS/METH BLUE/HYOS TABLET PO PRN (20:34)
[2018-04-11] MEDS: GLIMEPIRIDE 2 MG TABLET PO SCH (20:35)
[2018-04-11] MEDS: LEVOTHYROXINE 100 MCG TABLET PO SCH (20:35)
[2018-04-11] MEDS: ASPIRIN CHEW 81 MG TABLET PO SCH (20:36)
[2018-04-11] MEDS: MICONAZOLE 2% VAG CREAM 45 GM TUBE VAG SCH (20:36)
[2018-04-11] MEDS: MULTIVITAMIN (CENTRUM) TABLET PO SCH (20:36)
[2018-04-11] MEDS: ASCORBIC ACID 500 MG TABLET PO SCH (20:37)
[2018-04-11] MEDS: BIMATOPROST 0.01% OPH SOLN 2.5 ML BOTTLE BOTH EYES SCH (20:38)
[2018-04-12] MEDS: ALBUTEROL/IPRATROPIUM 3 ML NEB RESP TX SCH ×6 (02:40→23:59)
[2018-04-12] MEDS: INSULIN LISPRO 100 UNIT/ML SUBCUT SCH ×4 (07:44→21:19)
[2018-04-12] MEDS: cefTRIAXone 1,000 MG in SYRINGE 1 EACH IV SCH (08:33)
[2018-04-12] MEDS: DOCUSATE SODIUM 100 MG CAPSULE PO SCH ×2 (08:34→21:18)
[2018-04-12] MEDS: BRIMONIDINE 0.1% OPH SOLN 5 ML BOTTLE BOTH EYES SCH (08:34)
[2018-04-12] MEDS: NYSTATIN 500,000 UNIT/5 ML UDCUP SWISH/SWAL SCH ×4 (08:34→21:18)
[2018-04-12] MEDS: ENOXAPARIN 30 MG/0.3 ML SYRINGE SUBCUT SCH (08:34)
[2018-04-12] MEDS: FUROSEMIDE 40 MG TABLET PO SCH ×2 (08:34→17:01)
[2018-04-12] MEDS: PANTOPRAZOLE 40 MG TABLET PO SCH (08:35)
[2018-04-12] MEDS: CARVEDILOL 6.25 MG TABLET PO SCH ×2 (08:35→21:18)
[2018-04-12] MEDS: NYSTATIN CREAM 15 GM TUBE TOP SCH ×2 (08:35→21:20)
[2018-04-12] MEDS: AZITHROMYCIN INJ 500 MG in SODIUM CHLORIDE 0.9% 250 ML IV SCH (08:35)
[2018-04-12] MEDS: GLIMEPIRIDE 2 MG TABLET PO SCH (21:18)
[2018-04-12] MEDS: ASCORBIC ACID 500 MG TABLET PO SCH (21:18)
[2018-04-12] MEDS: ASPIRIN CHEW 81 MG TABLET PO SCH (21:18)
[2018-04-12] MEDS: CLOPIDOGREL 75 MG TABLET PO SCH (21:18)
[2018-04-12] MEDS: LEVOTHYROXINE 100 MCG TABLET PO SCH (21:18)
[2018-04-12] MEDS: LOSARTAN 50 MG TABLET PO SCH (21:18)
[2018-04-12] MEDS: MULTIVITAMIN (CENTRUM) TABLET PO SCH (21:18)
[2018-04-12] MEDS: BIMATOPROST 0.01% OPH SOLN 2.5 ML BOTTLE BOTH EYES SCH (21:19)
[2018-04-13] MEDS: ALBUTEROL/IPRATROPIUM 3 ML NEB RESP TX SCH ×2 (03:08→07:25)
[2018-04-13] MEDS: INSULIN LISPRO 100 UNIT/ML SUBCUT SCH (08:34)
[2018-04-13] MEDS: cefTRIAXone 1,000 MG in SYRINGE 1 EACH IV SCH (08:43)
[2018-04-13] MEDS: FUROSEMIDE 40 MG TABLET PO SCH (08:46)
[2018-04-13] MEDS: CARVEDILOL 6.25 MG TABLET PO SCH (08:46)
[2018-04-13] MEDS: PANTOPRAZOLE 40 MG TABLET PO SCH (08:46)
[2018-04-13] MEDS: BRIMONIDINE 0.1% OPH SOLN 5 ML BOTTLE BOTH EYES SCH (08:46)
[2018-04-13] MEDS: DOCUSATE SODIUM 100 MG CAPSULE PO SCH (08:46)
[2018-04-13] MEDS: NYSTATIN 500,000 UNIT/5 ML UDCUP SWISH/SWAL SCH (08:47)
[2018-04-13] MEDS: NYSTATIN CREAM 15 GM TUBE TOP SCH (08:47)
[2018-04-13 08:49] VITALS: BP 128/58
[2018-04-13] MEDS ORDERED: ENOXAPARIN 40 MG/0.4 ML SYRINGE SUBCUT SCH (09:00)
[2018-04-13] MEDS: AZITHROMYCIN INJ 500 MG in SODIUM CHLORIDE 0.9% 250 ML IV SCH (11:00)
== END 2018-04-13 11:20 | disposition home or self-care (01) | DRG 689 ==
LOC: N.ED 07:58 → N.EDINP 09:43 → N.2E 11:38
PROVIDERS: ADMIT Family Medicine; ATTEND Family Medicine

== ENCOUNTER 2018-07-04 09:14 | Inpatient (IN) ==
[2018-07-04 10:27] LABS: Basophils # 0.1 10*3/uL (0.0-0.2); Basophils % 0.5 % (0.0-0.8); Eosinophils # 0.3 10*3/uL (0.0-0.87); Eosinophils % 2.8 % (0.00-10.9); Immature Granulocytes % 0.5 %; Immature Granulocytes Absolute 0.05 #; Lymphocytes # 1.3 10*3/uL (1.4-4.0); Lymphocytes % 13.8 % (21.3-54.2); Mean Corpuscular HGB Conc 34.2 GM/DL (32-36); Mean Corpuscular Hemoglobin 32 PG (27-34); Mean Platelet Volume 9.5 FL (9.6-12.0); Monocytes % 10.8 % (1.7-12.7); Neutrophils # 6.9 10*3/uL (1.4-7.4); Neutrophils % 71.6 % (38.7-73.9); Platelet Count 364 T/CUMM (130-400); Red Blood Count 4.13 MC/CUMM (3.8-5.5); Red Cell Distribution Width 13.2 % (9.3-17.3); White Blood Count 9.6 T/CUMM (4-12)
[2018-07-04 10:40] LABS: Apearance,Urine CLEAR (Clear); Bacteria,Urine Occasional /HPF (Few); Bilirubin,Urine Negative (Negative); Blood, Urine Negative (Negative); Glucose,Urine (UA) Negative (Negative); Ketones,Urine Negative (Negative); Mucus,Urine Occasional /LPF (Occasional); Nitrite,Urine Negative (Negative); Protein,Urine Negative; RBC,Urine <1 /HPF (0-4); Squamous Epithelial Cell,Urine Occasional /HPF (0-10); Urine Color Yellow (Yellow); Urine Specific Gravity 1.008 (1.001-1.035); Urine Urobilinogen < 2.0 EU/DL (0.2-1.0); WBC,Urine 3 /HPF (0-6)
[2018-07-04 10:48] LABS: Lactic Acid 1.3 MMOL/L (0.4-2.0)
[2018-07-04 10:49] LABS: Albumin 3.2 G/DL (3.4-5.0); Bilirubin,Total 0.4 MG/DL (0.2-1.0); Calcium 8.6 MG/DL (8.5-10.1); Osmolality,Calculated 283.4 MOS/KG (273-304); Potassium 3.5 MMOL/L (3.5-5.1); Total Protein 7.3 G/DL (6.4-8.3)
[2018-07-04] MEDS ORDERED: GLUCAGON 1 MG VIAL IM PRN (12:14)
[2018-07-04] MEDS ORDERED: DEXTROSE 50% 25 GM/50 ML VIAL IV PRN (12:14)
[2018-07-04] MEDS ORDERED: ONDANSETRON 4 MG/2 ML VIAL IV PRN (12:14)
[2018-07-04] MEDS ORDERED: ALBUTEROL 2.5 MG/3 ML NEB RESP TX PRN (12:19)
[2018-07-04] MEDS ORDERED: METHEN/SOD PHOS/METH BLUE/HYOS TABLET PO PRN (12:19)
[2018-07-04] MEDS ORDERED: POLYETHYLENE GLYCOL POWDER 17 GM PACK PO PRN (12:19)
[2018-07-04] MEDS ORDERED: DEXTROMETHORPHAN ER 6 MG/ML 90 ML/BOTTLE PO PRN (12:19)
[2018-07-04] MEDS ORDERED: NYSTATIN CREAM 15 GM TUBE TOP PRN (12:19)
[2018-07-04] MEDS: SODIUM CHLORIDE 0.45% 1,000 ML IV SCH (14:09)
[2018-07-04] MEDS ORDERED: DORZOLAMIDE 2% OPH SOLN 10 ML BOTTLE BOTH EYES SCH (15:00)
[2018-07-04] MEDS ORDERED: FUROSEMIDE 40 MG TABLET PO SCH (16:00)
[2018-07-04] MEDS: INSULIN LISPRO 100 UNIT/ML SUBCUT SCH ×2 (16:51→21:20)
[2018-07-04] MEDS: FUROSEMIDE 40 MG/4 ML VIAL IV SCH (18:04)
[2018-07-04] MEDS ORDERED: GLIMEPIRIDE 2 MG TABLET PO SCH (21:00)
[2018-07-04] MEDS: BIMATOPROST 0.01% OPH SOLN 2.5 ML BOTTLE BOTH EYES SCH (21:15)
[2018-07-04] MEDS: LEVOTHYROXINE 100 MCG TABLET PO SCH (21:16)
[2018-07-04] MEDS: BRIMONIDINE 0.15% OPH SOLN 1 DROP/DROPS BOTTLE BOTH EYES SCH (21:16)
[2018-07-04] MEDS: ASPIRIN CHEW 81 MG TABLET PO SCH (21:16)
[2018-07-04] MEDS: LOSARTAN 50 MG TABLET PO SCH (21:16)
[2018-07-04] MEDS: FAMOTIDINE 20 MG TABLET PO SCH (21:17)
[2018-07-04] MEDS: ACETAMINOPHEN 325 MG TABLET PO PRN (21:17)
[2018-07-04] MEDS: MULTIVITAMIN (CENTRUM) TABLET PO SCH (21:17)
[2018-07-04] MEDS: CARVEDILOL 6.25 MG TABLET PO SCH (21:17)
[2018-07-04] MEDS: CLOPIDOGREL 75 MG TABLET PO SCH (21:19)
[2018-07-04] MEDS: ASCORBIC ACID 500 MG TABLET PO SCH (21:19)
[2018-07-04] MEDS: DOCUSATE SODIUM 100 MG CAPSULE PO SCH (21:20)
[2018-07-05 04:54] LABS: Basophils % 0.5 % (0.0-0.8); Eosinophils # 0.4 10*3/uL (0.0-0.87); Eosinophils % 4.9 % (0.00-10.9); Hematocrit 34.7 VOL% (35.7-47.0); Hemoglobin 11.4 GM/DL (12.0-16.0); Immature Granulocytes % 0.5 %; Immature Granulocytes Absolute 0.04 #; Lymphocytes # 1.9 10*3/uL (1.4-4.0); Lymphocytes % 22.3 % (21.3-54.2); Mean Corpuscular HGB Conc 32.9 GM/DL (32-36); Mean Corpuscular Hemoglobin 31 PG (27-34); Mean Platelet Volume 9.9 FL (9.6-12.0); Monocytes # 1.1 10*3/uL (0.11-0.8); Monocytes % 12.8 % (1.7-12.7); Platelet Count 334 T/CUMM (130-400); Red Blood Count 3.73 MC/CUMM (3.8-5.5); Red Cell Distribution Width 13.2 % (9.3-17.3); White Blood Count 8.5 T/CUMM (4-12)
[2018-07-05 05:19] LABS: Calcium 8.3 MG/DL (8.5-10.1); Osmolality,Calculated 282.4 MOS/KG (273-304); Potassium 3.6 MMOL/L (3.5-5.1); Risk Ratio 5.6; VLDL CHOLESTEROL 22.8 MG/DL
[2018-07-05 05:28] LABS: Calcium 8.5 MG/DL (8.5-10.1); Osmolality,Calculated 284.3 MOS/KG (273-304); Potassium 3.5 MMOL/L (3.5-5.1); Thyroid Stimulating Hormone 1.44 uIU/ml (0.358-3.74)
[2018-07-05] MEDS: INSULIN LISPRO 100 UNIT/ML SUBCUT SCH ×4 (09:53→22:28)
[2018-07-05] MEDS: CARVEDILOL 6.25 MG TABLET PO SCH ×2 (10:02→22:26)
[2018-07-05] MEDS: PANTOPRAZOLE 40 MG TABLET PO SCH (10:02)
[2018-07-05] MEDS: FUROSEMIDE 40 MG/4 ML VIAL IV SCH ×2 (10:02→16:59)
[2018-07-05] MEDS: GLIMEPIRIDE 2 MG TABLET PO SCH (10:02)
[2018-07-05] MEDS: FAMOTIDINE 20 MG TABLET PO SCH ×2 (10:02→22:26)
[2018-07-05] MEDS: BRIMONIDINE 0.15% OPH SOLN 1 DROP/DROPS BOTTLE BOTH EYES SCH ×2 (10:03→22:27)
[2018-07-05] MEDS: DOCUSATE SODIUM 100 MG CAPSULE PO SCH ×2 (10:03→22:28)
[2018-07-05] MEDS: SODIUM CHLORIDE 0.45% 1,000 ML IV SCH (19:16)
[2018-07-05] MEDS: ACETAMINOPHEN 325 MG TABLET PO PRN (19:50)
[2018-07-05] MEDS: ASPIRIN CHEW 81 MG TABLET PO SCH (22:22)
[2018-07-05] MEDS: MULTIVITAMIN (CENTRUM) TABLET PO SCH (22:25)
[2018-07-05] MEDS: CLOPIDOGREL 75 MG TABLET PO SCH (22:26)
[2018-07-05] MEDS: LEVOTHYROXINE 100 MCG TABLET PO SCH (22:26)
[2018-07-05] MEDS: LOSARTAN 50 MG TABLET PO SCH (22:26)
[2018-07-05] MEDS: ASCORBIC ACID 500 MG TABLET PO SCH (22:26)
[2018-07-05] MEDS: BIMATOPROST 0.01% OPH SOLN 2.5 ML BOTTLE BOTH EYES SCH (22:27)
[2018-07-06] MEDS: INSULIN LISPRO 100 UNIT/ML SUBCUT SCH ×4 (08:23→22:21)
[2018-07-06] MEDS ORDERED: BRIMONIDINE 0.15% OPH SOLN 1 DROP/DROPS BOTTLE BOTH EYES SCH (09:00)
[2018-07-06] MEDS: FUROSEMIDE 40 MG/4 ML VIAL IV SCH ×2 (09:17→17:02)
[2018-07-06] MEDS: PANTOPRAZOLE 40 MG TABLET PO SCH (09:50)
[2018-07-06] MEDS: FAMOTIDINE 20 MG TABLET PO SCH ×2 (09:50→21:39)
[2018-07-06] MEDS: GLIMEPIRIDE 2 MG TABLET PO SCH (09:50)
[2018-07-06] MEDS: CARVEDILOL 6.25 MG TABLET PO SCH ×2 (09:51→22:21)
[2018-07-06] MEDS: DOCUSATE SODIUM 100 MG CAPSULE PO SCH ×2 (09:51→21:40)
[2018-07-06] MEDS: BRIMONIDINE 0.15% OPH SOLN 1 DROP/DROPS BOTTLE BOTH EYES SCH ×2 (09:51→21:43)
[2018-07-06] MEDS: ACETAMINOPHEN 325 MG TABLET PO PRN ×2 (09:56→18:53)
[2018-07-06] MEDS ORDERED: POTASSIUM CHLORIDE RIDER 10 MEQ in PREMIX 1 EACH IV PRN (15:11)
[2018-07-06] MEDS ORDERED: ASPIRIN 325 MG TABLET PO ONE (15:11)
[2018-07-06] MEDS ORDERED: DIAZEPAM 5 MG TABLET PO ONE (15:11)
[2018-07-06] MEDS ORDERED: diphenhydrAMINE CAP 25 MG CAPSULE PO ONE (15:11)
[2018-07-06] MEDS ORDERED: MAGNESIUM SULF RIDER 2 GM in PREMIX 1 EACH IV PRN (15:11)
[2018-07-06] MEDS: CLOPIDOGREL 75 MG TABLET PO SCH (21:39)
[2018-07-06] MEDS: MULTIVITAMIN (CENTRUM) TABLET PO SCH (21:39)
[2018-07-06] MEDS: ASPIRIN CHEW 81 MG TABLET PO SCH (21:40)
[2018-07-06] MEDS: ASCORBIC ACID 500 MG TABLET PO SCH (21:40)
[2018-07-06] MEDS: LOSARTAN 50 MG TABLET PO SCH (21:42)
[2018-07-06] MEDS: BIMATOPROST 0.01% OPH SOLN 2.5 ML BOTTLE BOTH EYES SCH (21:43)
[2018-07-06] MEDS: LEVOTHYROXINE 100 MCG TABLET PO SCH (22:21)
[2018-07-07 05:33] LABS: Basophils # 0.1 10*3/uL (0.0-0.2); Basophils % 0.7 % (0.0-0.8); Eosinophils # 0.5 10*3/uL (0.0-0.87); Eosinophils % 5.8 % (0.00-10.9); Hematocrit 35.1 VOL% (35.7-47.0); Hemoglobin 11.5 GM/DL (12.0-16.0); Immature Granulocytes % 0.5 %; Immature Granulocytes Absolute 0.04 #; Lymphocytes # 1.7 10*3/uL (1.4-4.0); Mean Corpuscular HGB Conc 32.8 GM/DL (32-36); Mean Corpuscular Hemoglobin 31 PG (27-34); Mean Corpuscular Volume 93.9 FL (87-102); Mean Platelet Volume 9.8 FL (9.6-12.0); Monocytes # 1.1 10*3/uL (0.11-0.8); Monocytes % 13.3 % (1.7-12.7); Neutrophils # 4.8 10*3/uL (1.4-7.4); Neutrophils % 58.7 % (38.7-73.9); Platelet Count 358 T/CUMM (130-400); Red Blood Count 3.74 MC/CUMM (3.8-5.5); Red Cell Distribution Width 13.4 % (9.3-17.3); White Blood Count 8.2 T/CUMM (4-12)
[2018-07-07 05:37] LABS: Calcium 8.9 MG/DL (8.5-10.1); Potassium 4.3 MMOL/L (3.5-5.1)
[2018-07-07] MEDS: INSULIN LISPRO 100 UNIT/ML SUBCUT SCH ×4 (08:02→22:04)
[2018-07-07] MEDS: GLIMEPIRIDE 2 MG TABLET PO SCH (09:09)
[2018-07-07] MEDS: DOCUSATE SODIUM 100 MG CAPSULE PO SCH ×2 (09:09→20:56)
[2018-07-07] MEDS: CARVEDILOL 6.25 MG TABLET PO SCH ×2 (09:22→20:56)
[2018-07-07] MEDS: PANTOPRAZOLE 40 MG TABLET PO SCH (09:22)
[2018-07-07] MEDS: FAMOTIDINE 20 MG TABLET PO SCH ×2 (09:23→20:54)
[2018-07-07] MEDS: ACETAMINOPHEN 325 MG TABLET PO PRN ×2 (09:23→20:54)
[2018-07-07] MEDS: BRIMONIDINE 0.15% OPH SOLN 1 DROP/DROPS BOTTLE BOTH EYES SCH ×2 (09:26→20:53)
[2018-07-07] MEDS: FUROSEMIDE 40 MG/4 ML VIAL IV SCH ×2 (12:03→17:52)
[2018-07-07] MEDS: SODIUM CHLORIDE 0.9% 1,000 ML IV SCH ×2 (12:19→20:52)
[2018-07-07] MEDS ORDERED: diphenhydrAMINE CAP 25 MG CAPSULE PO ONE (13:00)
[2018-07-07] MEDS ORDERED: DIAZEPAM 5 MG TABLET PO ONE (13:00)
[2018-07-07] MEDS ORDERED: LIDOCAINE 1% 20 ML VIAL ONE (13:53)
[2018-07-07] MEDS ORDERED: MIDAZOLAM 2 MG/2 ML VIAL ONE (13:57)
[2018-07-07] MEDS ORDERED: fentaNYL 100 MCG/2 ML VIAL ONE (13:57)
[2018-07-07 16:05] LABS: Calcium 8.6 MG/DL (8.5-10.1); Osmolality,Calculated 277.5 MOS/KG (273-304); Potassium 3.9 MMOL/L (3.5-5.1)
[2018-07-07] MEDS: MULTIVITAMIN (CENTRUM) TABLET PO SCH (20:53)
[2018-07-07] MEDS: BIMATOPROST 0.01% OPH SOLN 2.5 ML BOTTLE BOTH EYES SCH (20:53)
[2018-07-07] MEDS: LEVOTHYROXINE 100 MCG TABLET PO SCH (20:53)
[2018-07-07] MEDS: ASPIRIN CHEW 81 MG TABLET PO SCH (20:55)
[2018-07-07] MEDS: CLOPIDOGREL 75 MG TABLET PO SCH (20:55)
[2018-07-07] MEDS: ASCORBIC ACID 500 MG TABLET PO SCH (20:56)
[2018-07-07] MEDS: LOSARTAN 50 MG TABLET PO SCH (22:04)
[2018-07-08] MEDS: SODIUM CHLORIDE 0.9% 1,000 ML IV SCH (01:03)
[2018-07-08 04:26] LABS: Basophils % 0.4 % (0.0-0.8); Eosinophils # 0.4 10*3/uL (0.0-0.87); Eosinophils % 4.1 % (0.00-10.9); Hematocrit 32.1 VOL% (35.7-47.0); Hemoglobin 10.7 GM/DL (12.0-16.0); Immature Granulocytes % 0.5 %; Immature Granulocytes Absolute 0.05 #; Lymphocytes # 1.6 10*3/uL (1.4-4.0); Lymphocytes % 15.5 % (21.3-54.2); Mean Corpuscular HGB Conc 33.3 GM/DL (32-36); Mean Corpuscular Hemoglobin 31 PG (27-34); Mean Corpuscular Volume 93.6 FL (87-102); Mean Platelet Volume 9.7 FL (9.6-12.0); Monocytes # 1.1 10*3/uL (0.11-0.8); Monocytes % 10.5 % (1.7-12.7); Neutrophils # 7.3 10*3/uL (1.4-7.4); Platelet Count 355 T/CUMM (130-400); Red Blood Count 3.43 MC/CUMM (3.8-5.5); Red Cell Distribution Width 13.5 % (9.3-17.3); White Blood Count 10.5 T/CUMM (4-12)
[2018-07-08] MEDS ORDERED: THROMBIN TOPICAL (RECOMBINANT) 5,000 UNIT VIAL TOP ONE (08:52)
[2018-07-08] MEDS: INSULIN LISPRO 100 UNIT/ML SUBCUT SCH ×4 (09:53→22:13)
[2018-07-08] MEDS: GLIMEPIRIDE 2 MG TABLET PO SCH (10:07)
[2018-07-08] MEDS: CARVEDILOL 6.25 MG TABLET PO SCH ×2 (10:07→22:11)
[2018-07-08] MEDS: FAMOTIDINE 20 MG TABLET PO SCH ×2 (10:07→22:11)
[2018-07-08] MEDS: FUROSEMIDE 40 MG/4 ML VIAL IV SCH ×2 (10:08→17:13)
[2018-07-08] MEDS: DOCUSATE SODIUM 100 MG CAPSULE PO SCH ×2 (10:08→22:09)
[2018-07-08] MEDS: PANTOPRAZOLE 40 MG TABLET PO SCH (10:08)
[2018-07-08] MEDS: BRIMONIDINE 0.15% OPH SOLN 1 DROP/DROPS BOTTLE BOTH EYES SCH ×2 (10:13→22:12)
[2018-07-08] MEDS: ASPIRIN CHEW 81 MG TABLET PO SCH (22:09)
[2018-07-08] MEDS: LOSARTAN 50 MG TABLET PO SCH (22:10)
[2018-07-08] MEDS: LEVOTHYROXINE 100 MCG TABLET PO SCH (22:10)
[2018-07-08] MEDS: ASCORBIC ACID 500 MG TABLET PO SCH (22:10)
[2018-07-08] MEDS: MULTIVITAMIN (CENTRUM) TABLET PO SCH (22:11)
[2018-07-08] MEDS: CLOPIDOGREL 75 MG TABLET PO SCH (22:11)
[2018-07-08] MEDS: BIMATOPROST 0.01% OPH SOLN 2.5 ML BOTTLE BOTH EYES SCH (22:13)
[2018-07-09 04:40] LABS: Calcium 8.9 MG/DL (8.5-10.1); Osmolality,Calculated 282.4 MOS/KG (273-304)
[2018-07-09] MEDS: INSULIN LISPRO 100 UNIT/ML SUBCUT SCH ×2 (07:38→12:15)
[2018-07-09] MEDS: SODIUM CHLORIDE 0.9% 1,000 ML IV SCH (07:42)
[2018-07-09] MEDS ORDERED: TUBERCULIN SKIN TEST 0.1 ML SYRINGE INTRADERM ONE (08:05)
[2018-07-09] MEDS: FUROSEMIDE 40 MG/4 ML VIAL IV SCH (09:25)
[2018-07-09] MEDS: BRIMONIDINE 0.15% OPH SOLN 1 DROP/DROPS BOTTLE BOTH EYES SCH (09:28)
[2018-07-09] MEDS: PANTOPRAZOLE 40 MG TABLET PO SCH (09:29)
[2018-07-09] MEDS: GLIMEPIRIDE 2 MG TABLET PO SCH (09:29)
[2018-07-09] MEDS: CARVEDILOL 6.25 MG TABLET PO SCH (09:29)
[2018-07-09] MEDS: FAMOTIDINE 20 MG TABLET PO SCH (09:29)
[2018-07-09] MEDS: DOCUSATE SODIUM 100 MG CAPSULE PO SCH (09:29)
[2018-07-09 12:29] VITALS: BP 161/69
== END 2018-07-09 13:38 | DRG 286 ==
LOC: N.ED 09:14 → N.EDINP 12:14 → N.TELEN 13:19
PROVIDERS: ADMIT Family Medicine; ATTEND Family Medicine

== ENCOUNTER 2018-10-07 11:51 | Inpatient (IN) ==
[2018-10-07 13:19] LABS: Basophils # 0.1 10*3/uL (0.0-0.2); Basophils % 0.5 % (0.0-0.8); Eosinophils # 0.2 10*3/uL (0.0-0.87); Eosinophils % 1.5 % (0.00-10.9); Hematocrit 38.9 VOL% (35.7-47.0); Hemoglobin 12.4 GM/DL (12.0-16.0); Immature Granulocytes % 0.5 %; Immature Granulocytes Absolute 0.07 #; Lymphocytes # 1.2 10*3/uL (1.4-4.0); Lymphocytes % 9.1 % (21.3-54.2); Mean Corpuscular HGB Conc 31.9 GM/DL (32-36); Mean Corpuscular Hemoglobin 31 PG (27-34); Mean Corpuscular Volume 95.6 FL (87-102); Mean Platelet Volume 9.5 FL (9.6-12.0); Monocytes # 1.4 10*3/uL (0.11-0.8); Monocytes % 10.7 % (1.7-12.7); Neutrophils # 10.4 10*3/uL (1.4-7.4); Neutrophils % 77.7 % (38.7-73.9); Platelet Count 342 T/CUMM (130-400); Red Blood Count 4.07 MC/CUMM (3.8-5.5); Red Cell Distribution Width 14.6 % (9.3-17.3); White Blood Count 13.4 T/CUMM (4-12)
[2018-10-07 13:47] LABS: Bilirubin,Total 0.4 MG/DL (0.2-1.0); Calcium 8.6 MG/DL (8.5-10.1); Potassium 4.1 MMOL/L (3.5-5.1); Total Protein 7.8 G/DL (6.4-8.3)
[2018-10-07 13:54] LABS: INR 0.9; Partial Thromboplastin Time 27.8 SECS (0-40)
[2018-10-07] MEDS ORDERED: ONDANSETRON 4 MG/2 ML VIAL ONE (14:00)
[2018-10-07] MEDS ORDERED: LEVOFLOXACIN INJ 500 MG in PREMIX 1 EACH IV STA (14:01)
[2018-10-07 14:54] LABS: Apearance,Urine CLEAR (Clear); Bilirubin,Urine Negative (Negative); Blood, Urine Negative (Negative); Glucose,Urine (UA) Negative (Negative); Ketones,Urine 5 mg/dL (Negative); Mucus,Urine Occasional /LPF (Occasional); Nitrite,Urine Negative (Negative); Protein,Urine Negative; RBC,Urine 2 /HPF (0-4); Urine Color Yellow (Yellow); Urine Specific Gravity 1.015 (1.001-1.035); Urine Urobilinogen < 2.0 EU/DL (0.2-1.0); WBC,Urine 1 /HPF (0-6)
[2018-10-07] MEDS ORDERED: ALBUTEROL 2.5 MG/3 ML NEB RESP TX SCH (16:07)
[2018-10-07] MEDS: SODIUM CHLORIDE 0.9% 1,000 ML IV SCH (16:58)
[2018-10-07] MEDS: ONDANSETRON 4 MG/2 ML VIAL IV PRN (18:22)
[2018-10-07] MEDS: ALBUTEROL 2.5 MG/3 ML NEB RESP TX SCH ×2 (19:26→23:06)
[2018-10-07] MEDS: DOCUSATE SODIUM 100 MG CAPSULE PO SCH (21:19)
[2018-10-07] MEDS ORDERED: ASCORBIC ACID 500 MG TABLET PO PRN (23:09)
[2018-10-07] MEDS ORDERED: ACETAMINOPHEN 325 MG TABLET PO PRN (23:09)
[2018-10-07] MEDS ORDERED: POLYETHYLENE GLYCOL POWDER 17 GM PACK PO PRN (23:09)
[2018-10-07] MEDS ORDERED: NYSTATIN CREAM 15 GM TUBE TOP PRN (23:09)
[2018-10-07] MEDS ORDERED: FUROSEMIDE 40 MG TABLET PO PRN (23:09)
[2018-10-07] MEDS ORDERED: FAMOTIDINE 20 MG TABLET PO PRN (23:09)
[2018-10-07] MEDS ORDERED: DEXTROMETHORPHAN ER 6 MG/ML 90 ML/BOTTLE PO PRN (23:09)
[2018-10-08] MEDS: SODIUM CHLORIDE 0.9% 1,000 ML IV SCH ×3 (02:26→23:03)
[2018-10-08] MEDS: ALBUTEROL 2.5 MG/3 ML NEB RESP TX SCH ×6 (03:40→23:45)
[2018-10-08] MEDS: GLIMEPIRIDE 2 MG TABLET PO SCH ×2 (08:50→20:28)
[2018-10-08] MEDS: CARVEDILOL 6.25 MG TABLET PO SCH ×2 (08:50→20:29)
[2018-10-08] MEDS: PANTOPRAZOLE 40 MG TABLET PO SCH (08:50)
[2018-10-08] MEDS: DOCUSATE SODIUM 100 MG CAPSULE PO SCH ×3 (08:50→20:28)
[2018-10-08] MEDS: BRIMONIDINE 0.15% OPH SOLN 1 DROP/DROPS BOTTLE BOTH EYES SCH ×2 (08:51→20:27)
[2018-10-08] MEDS: ONDANSETRON 4 MG/2 ML VIAL IV PRN (14:29)
[2018-10-08] MEDS: LEVOFLOXACIN INJ 500 MG in PREMIX 1 EACH IV SCH (15:10)
[2018-10-08] MEDS: ASPIRIN CHEW 81 MG TABLET PO SCH (20:27)
[2018-10-08] MEDS: LEVOTHYROXINE 100 MCG TABLET PO SCH (20:28)
[2018-10-08] MEDS: CLOPIDOGREL 75 MG TABLET PO SCH (20:28)
[2018-10-08] MEDS: BIMATOPROST 0.01% OPH SOLN 2.5 ML BOTTLE BOTH EYES SCH (20:31)
[2018-10-08] MEDS ORDERED: LOSARTAN 50 MG TABLET PO SCH (21:00)
[2018-10-09] MEDS: ALBUTEROL 2.5 MG/3 ML NEB RESP TX SCH ×6 (05:03→23:45)
[2018-10-09] MEDS: SODIUM CHLORIDE 0.9% 1,000 ML IV SCH (09:26)
[2018-10-09] MEDS: CARVEDILOL 6.25 MG TABLET PO SCH (09:26)
[2018-10-09] MEDS: DOCUSATE SODIUM 100 MG CAPSULE PO SCH ×2 (09:26→21:57)
[2018-10-09] MEDS: BRIMONIDINE 0.15% OPH SOLN 1 DROP/DROPS BOTTLE BOTH EYES SCH ×2 (09:26→21:58)
[2018-10-09] MEDS: GLIMEPIRIDE 2 MG TABLET PO SCH ×2 (09:26→22:24)
[2018-10-09] MEDS: PANTOPRAZOLE 40 MG TABLET PO SCH (09:26)
[2018-10-09] MEDS ORDERED: LOSARTAN 50 MG TABLET PO SCH (10:22)
[2018-10-09] MEDS: POTASSIUM CHLORIDE 20 MEQ TABLET PO SCH (11:29)
[2018-10-09] MEDS: FUROSEMIDE 40 MG/4 ML VIAL IV SCH (11:29)
[2018-10-09] MEDS: ACETAMINOPHEN 325 MG TABLET PO PRN ×2 (11:30→19:50)
[2018-10-09] MEDS: LEVOFLOXACIN INJ 500 MG in PREMIX 1 EACH IV SCH (14:39)
[2018-10-09] MEDS ORDERED: FUROSEMIDE 40 MG TABLET PO SCH (16:00)
[2018-10-09] MEDS: CLOPIDOGREL 75 MG TABLET PO SCH (21:57)
[2018-10-09] MEDS: ASPIRIN CHEW 81 MG TABLET PO SCH (21:57)
[2018-10-09] MEDS: CARVEDILOL 3.125 MG TABLET PO SCH (21:57)
[2018-10-09] MEDS: LEVOTHYROXINE 100 MCG TABLET PO SCH (21:57)
[2018-10-09] MEDS: BIMATOPROST 0.01% OPH SOLN 2.5 ML BOTTLE BOTH EYES SCH (22:24)
[2018-10-10 03:31] LABS: Basophils # 0.1 10*3/uL (0.0-0.2); Basophils % 0.7 % (0.0-0.8); Eosinophils # 0.5 10*3/uL (0.0-0.87); Eosinophils % 5.6 % (0.00-10.9); Hematocrit 37.1 VOL% (35.7-47.0); Hemoglobin 11.6 GM/DL (12.0-16.0); Immature Granulocytes % 0.3 %; Immature Granulocytes Absolute 0.03 #; Lymphocytes # 1.4 10*3/uL (1.4-4.0); Lymphocytes % 16.3 % (21.3-54.2); Mean Corpuscular HGB Conc 31.3 GM/DL (32-36); Mean Corpuscular Hemoglobin 30 PG (27-34); Mean Corpuscular Volume 94.9 FL (87-102); Mean Platelet Volume 9.6 FL (9.6-12.0); Monocytes % 11.4 % (1.7-12.7); Neutrophils # 5.8 10*3/uL (1.4-7.4); Neutrophils % 65.7 % (38.7-73.9); Platelet Count 346 T/CUMM (130-400); Red Blood Count 3.91 MC/CUMM (3.8-5.5); Red Cell Distribution Width 14.7 % (9.3-17.3); White Blood Count 8.8 T/CUMM (4-12)
[2018-10-10 03:47] LABS: Calcium 8.9 MG/DL (8.5-10.1); Osmolality,Calculated 281.3 MOS/KG (273-304); Potassium 4.2 MMOL/L (3.5-5.1)
[2018-10-10] MEDS: ALBUTEROL 2.5 MG/3 ML NEB RESP TX SCH ×3 (04:17→11:15)
[2018-10-10] MEDS: ONDANSETRON 4 MG/2 ML VIAL IV PRN (06:30)
[2018-10-10] MEDS: BRIMONIDINE 0.15% OPH SOLN 1 DROP/DROPS BOTTLE BOTH EYES SCH (09:19)
[2018-10-10] MEDS: POTASSIUM CHLORIDE 20 MEQ TABLET PO SCH (09:19)
[2018-10-10] MEDS: DOCUSATE SODIUM 100 MG CAPSULE PO SCH ×2 (09:20→09:28)
[2018-10-10] MEDS: PANTOPRAZOLE 40 MG TABLET PO SCH (09:20)
[2018-10-10] MEDS: GLIMEPIRIDE 2 MG TABLET PO SCH (09:20)
[2018-10-10] MEDS: CARVEDILOL 3.125 MG TABLET PO SCH (09:20)
[2018-10-10] MEDS: FUROSEMIDE 40 MG/4 ML VIAL IV SCH (09:20)
[2018-10-10 12:53] VITALS: BP 122/59
[2018-10-10] MEDS ORDERED: LEVOFLOXACIN 500 MG TABLET PO SCH (14:00)
[2018-10-11] MEDS ORDERED: FUROSEMIDE 40 MG TABLET PO SCH (09:00)
== END 2018-10-10 14:34 | disposition home health service (06) | DRG 193 ==
LOC: N.ED 11:51 → N.EDINP 14:01 → N.2W 15:55 → N.TELES 17:42
PROVIDERS: ADMIT Family Medicine; ATTEND Family Medicine

== ENCOUNTER 2018-12-02 15:24 | Inpatient (IN) ==
[2018-12-02] MEDS ORDERED: ALBUTEROL/IPRATROPIUM 3 ML NEB RESP TX STA (16:08)
[2018-12-02] MEDS ORDERED: LEVOFLOXACIN INJ 750 MG in PREMIX 1 EACH IV STA (16:08)
[2018-12-02] MEDS ORDERED: methylPREDNISolone SOD SUC 125 MG/2 ML VIAL IV STA (16:08)
[2018-12-02 16:50] LABS: Basophils # 0.1 10*3/uL (0.0-0.2); Basophils % 0.6 % (0.0-0.8); Eosinophils # 0.4 10*3/uL (0.0-0.87); Eosinophils % 3.7 % (0.00-10.9); Hemoglobin 13.8 GM/DL (12.0-16.0); Immature Granulocytes % 1.2 %; Immature Granulocytes Absolute 0.13 #; Lymphocytes # 1.9 10*3/uL (1.4-4.0); Lymphocytes % 17.9 % (21.3-54.2); Mean Corpuscular HGB Conc 32.9 GM/DL (32-36); Mean Corpuscular Hemoglobin 30 PG (27-34); Mean Corpuscular Volume 90.9 FL (87-102); Monocytes # 0.9 10*3/uL (0.11-0.8); Monocytes % 8.6 % (1.7-12.7); Neutrophils # 7.2 10*3/uL (1.4-7.4); Platelet Count 410 T/CUMM (130-400); Red Blood Count 4.62 MC/CUMM (3.8-5.5); Red Cell Distribution Width 14.4 % (9.3-17.3); White Blood Count 10.5 T/CUMM (4-12)
[2018-12-02 17:06] LABS: INR 0.9; Partial Thromboplastin Time 26.6 SECS (0-40)
[2018-12-02 17:15] LABS: Apearance,Urine Slightly Hazy (Clear); Bacteria,Urine Occasional /HPF (Few); Bilirubin,Urine Negative (Negative); Blood, Urine Negative (Negative); Glucose,Urine (UA) Negative (Negative); Hyaline Casts,Urine 1 /LPF (0-3); Ketones,Urine Negative (Negative); Nitrite,Urine Positive (Negative); Protein,Urine Negative; RBC,Urine 1 /HPF (0-4); Squamous Epithelial Cell,Urine Occasional /HPF (0-10); Urine Color Yellow (Yellow); Urine Specific Gravity 1.006 (1.001-1.035); Urine Urobilinogen < 2.0 EU/DL (0.2-1.0); WBC,Urine 17 /HPF (0-6)
[2018-12-02 17:18] LABS: Alanine Aminotransferase 19 U/L (13-56); Albumin 3.3 G/DL (3.4-5.0); Alkaline Phosphatase 96 U/L (45-117); Aspartate Amino Transferase 19 U/L (0-37); Bilirubin,Total < 0.39 MG/DL (0.2-1.0); Blood Urea Nitrogen 20 MG/DL (7-18); Glucose 86 MG/DL (74-106); Potassium 3.8 MMOL/L (3.5-5.1); Sodium 136 MMOL/L (136-145); Total Protein 8.4 G/DL (6.4-8.3); Troponin I < 0.015 NG/ML (0.00-0.045)
[2018-12-02] MEDS ORDERED: ACETAMINOPHEN 500 MG TABLET PO PRN (18:03)
[2018-12-02] MEDS ORDERED: ONDANSETRON 4 MG/2 ML VIAL IV PRN (18:03)
[2018-12-02] MEDS: ALBUTEROL/IPRATROPIUM 3 ML NEB RESP TX SCH (18:55)
[2018-12-02] MEDS: CARVEDILOL 3.125 MG TABLET PO SCH (21:17)
[2018-12-03] MEDS: ALBUTEROL/IPRATROPIUM 3 ML NEB RESP TX SCH ×4 (01:40→19:09)
[2018-12-03] MEDS: LEVOTHYROXINE 100 MCG TABLET PO SCH (06:13)
[2018-12-03] MEDS: FAMOTIDINE 20 MG TABLET PO SCH (10:49)
[2018-12-03] MEDS: CARVEDILOL 3.125 MG TABLET PO SCH ×2 (10:49→21:37)
[2018-12-03] MEDS: LOSARTAN 50 MG TABLET PO SCH (10:49)
[2018-12-03] MEDS: PANTOPRAZOLE 40 MG TABLET PO SCH (10:50)
[2018-12-04] MEDS: ALBUTEROL/IPRATROPIUM 3 ML NEB RESP TX SCH ×4 (00:11→19:10)
[2018-12-04] MEDS: LEVOTHYROXINE 100 MCG TABLET PO SCH (06:21)
[2018-12-04] MEDS: FAMOTIDINE 20 MG TABLET PO SCH (09:03)
[2018-12-04] MEDS: PANTOPRAZOLE 40 MG TABLET PO SCH (09:04)
[2018-12-04] MEDS: CARVEDILOL 3.125 MG TABLET PO SCH ×2 (09:04→21:54)
[2018-12-04] MEDS: LOSARTAN 50 MG TABLET PO SCH (09:04)
[2018-12-04] MEDS ORDERED: LEVOFLOXACIN INJ 750 MG in PREMIX 1 EACH IV SCH (21:00)
[2018-12-04] MEDS: AMOXICILLIN/CLAV 875 MG TABLET PO SCH (21:54)
[2018-12-05] MEDS: ALBUTEROL/IPRATROPIUM 3 ML NEB RESP TX SCH ×2 (00:46→07:20)
[2018-12-05] MEDS: LEVOTHYROXINE 100 MCG TABLET PO SCH (06:02)
[2018-12-05] MEDS: AMOXICILLIN/CLAV 875 MG TABLET PO SCH (08:53)
[2018-12-05] MEDS: FAMOTIDINE 20 MG TABLET PO SCH (08:53)
[2018-12-05] MEDS: PANTOPRAZOLE 40 MG TABLET PO SCH (08:53)
[2018-12-05] MEDS: CARVEDILOL 3.125 MG TABLET PO SCH (08:53)
[2018-12-05] MEDS: LOSARTAN 50 MG TABLET PO SCH (08:54)
[2018-12-05 11:31] VITALS: BP 144/72
== END 2018-12-05 14:24 | disposition home health service (06) | DRG 202 ==
LOC: N.ED 15:24 → N.EDINP 18:02 → N.2E 19:35
PROVIDERS: ADMIT Family Medicine; ATTEND Family Medicine

== ENCOUNTER 2018-12-14 16:30 | Inpatient (IN) ==
[2018-12-14] MEDS ORDERED: ONDANSETRON 4 MG/2 ML VIAL IV STA (16:58)
[2018-12-14] MEDS ORDERED: methylPREDNISolone SOD SUC 125 MG/2 ML VIAL IV STA (16:58)
[2018-12-14] MEDS ORDERED: FUROSEMIDE 100 MG/10 ML VIAL IV STA (16:58)
[2018-12-14] MEDS ORDERED: ALBUTEROL 2.5 MG/3 ML NEB RESP TX SCH (17:00)
[2018-12-14 17:49] LABS: Basophils # 0.1 10*3/uL (0.0-0.2); Basophils % 0.6 % (0.0-0.8); Eosinophils # 0.2 10*3/uL (0.0-0.87); Eosinophils % 1.1 % (0.00-10.9); Hematocrit 39.2 VOL% (35.7-47.0); Hemoglobin 12.6 GM/DL (12.0-16.0); Immature Granulocytes % 0.7 %; Immature Granulocytes Absolute 0.11 #; Lymphocytes # 1.2 10*3/uL (1.4-4.0); Lymphocytes % 7.8 % (21.3-54.2); Mean Corpuscular HGB Conc 32.1 GM/DL (32-36); Mean Corpuscular Hemoglobin 30 PG (27-34); Mean Corpuscular Volume 91.8 FL (87-102); Mean Platelet Volume 9.4 FL (9.6-12.0); Monocytes # 1.7 10*3/uL (0.11-0.8); Monocytes % 10.5 % (1.7-12.7); Neutrophils # 12.5 10*3/uL (1.4-7.4); Neutrophils % 79.3 % (38.7-73.9); Platelet Count 348 T/CUMM (130-400); Red Blood Count 4.27 MC/CUMM (3.8-5.5); Red Cell Distribution Width 14.8 % (9.3-17.3); White Blood Count 15.8 T/CUMM (4-12)
[2018-12-14 18:01] LABS: ABG HCO3 27.9 MMOL/L (20-26); ABG Oxygen Saturation 93.4 % (95-100); ABG PCO2 39.1 MM HG (35-48); ABG PH 7.462 (7.35-7.45); ABG PO2 61.8 MM HG (80-95); ABG TCO2 24.5 MMOL/L (23-27)
[2018-12-14 18:02] LABS: INR 0.9; PT Patient Result 10.3 SECS
[2018-12-14 18:10] LABS: Albumin 3.1 G/DL (3.4-5.0); Bilirubin,Total 0.5 MG/DL (0.2-1.0); Calcium 8.4 MG/DL (8.5-10.1); Osmolality,Calculated 275.7 MOS/KG (273-304); Potassium 3.6 MMOL/L (3.5-5.1); Total Protein 7.2 G/DL (6.4-8.3)
[2018-12-14 19:42] LABS: Apearance,Urine CLOUDY (Clear); Bacteria,Urine Occasional /HPF (Few); Bilirubin,Urine Negative (Negative); Blood, Urine Small mg/dL (Negative); Glucose,Urine (UA) Negative (Negative); Hyaline Casts,Urine 3 /LPF (0-3); Ketones,Urine Negative (Negative); Mucus,Urine Occasional /LPF (Occasional); Nitrite,Urine Negative (Negative); Protein,Urine 30 MG/DL; RBC,Urine 12 /HPF (0-4); Squamous Epithelial Cell,Urine Occasional /HPF (0-10); Urine Color Yellow (Yellow); Urine Specific Gravity 1.019 (1.001-1.035); Urine Urobilinogen < 2.0 EU/DL (0.2-1.0); WBC,Urine 240 /HPF (0-6)
[2018-12-14] MEDS ORDERED: DEXTROSE 50% 25 GM/50 ML SYRINGE IV PRN (22:12)
[2018-12-14] MEDS ORDERED: MORPHINE 4 MG/1 ML VIAL IV PRN (22:12)
[2018-12-14] MEDS ORDERED: NYSTATIN CREAM 15 GM TUBE TOP PRN (22:12)
[2018-12-14] MEDS ORDERED: ONDANSETRON 4 MG/2 ML VIAL IV PRN (22:12)
[2018-12-14] MEDS ORDERED: FAMOTIDINE 20 MG TABLET PO PRN (22:12)
[2018-12-14] MEDS ORDERED: POLYETHYLENE GLYCOL POWDER 17 GM PACK PO PRN (22:12)
[2018-12-14] MEDS ORDERED: DEXTROMETHORPHAN ER 6 MG/ML 90 ML/BOTTLE PO PRN (22:12)
[2018-12-14] MEDS ORDERED: ALBUTEROL 2.5 MG/3 ML NEB RESP TX PRN (22:12)
[2018-12-14] MEDS ORDERED: NON-FORMULARY MEDICATION (Epinephrine [Epipen 2-Pak] 0.3 MG) SUBCUT PRN (22:12)
[2018-12-14] MEDS ORDERED: FUROSEMIDE 20 MG TABLET PO SCH (22:12)
[2018-12-14] MEDS ORDERED: ACETAMINOPHEN 325 MG TABLET PO PRN ×2 (22:12)
[2018-12-14] MEDS ORDERED: GLUCAGON 1 MG VIAL IM PRN (22:12)
[2018-12-14] MEDS: BRIMONIDINE 0.15% OPH SOLN 1 DROP/DROPS BOTTLE BOTH EYES SCH (23:41)
[2018-12-14] MEDS: cefTRIAXone 1,000 MG in SYRINGE 1 EACH IV SCH (23:41)
[2018-12-14] MEDS: CARVEDILOL 3.125 MG TABLET PO SCH (23:42)
[2018-12-14] MEDS: BIMATOPROST 0.01% OPH SOLN 2.5 ML BOTTLE BOTH EYES SCH (23:42)
[2018-12-14] MEDS: LEVOTHYROXINE 100 MCG TABLET PO SCH (23:42)
[2018-12-14] MEDS: DOCUSATE SODIUM 100 MG CAPSULE PO SCH (23:42)
[2018-12-14] MEDS: CLOPIDOGREL 75 MG TABLET PO SCH (23:42)
[2018-12-14] MEDS: SODIUM CHLORIDE 0.9% 1,000 ML IV SCH (23:45)
[2018-12-15] MEDS: ALBUTEROL/IPRATROPIUM 3 ML NEB RESP TX SCH ×6 (00:25→19:29)
[2018-12-15] MEDS: INSULIN REGULAR 100 UNIT/ML SUBCUT SCH ×4 (00:57→17:35)
[2018-12-15] MEDS: methylPREDNISolone SOD SUC 40 MG/1 ML VIAL IV SCH ×3 (02:39→22:38)
[2018-12-15 04:29] LABS: Basophils % 0.2 % (0.0-0.8); Hematocrit 35.1 VOL% (35.7-47.0); Hemoglobin 11.2 GM/DL (12.0-16.0); Immature Granulocytes % 0.5 %; Immature Granulocytes Absolute 0.05 #; Lymphocytes # 0.8 10*3/uL (1.4-4.0); Lymphocytes % 8.1 % (21.3-54.2); Mean Corpuscular HGB Conc 31.9 GM/DL (32-36); Mean Corpuscular Hemoglobin 30 PG (27-34); Mean Corpuscular Volume 92.9 FL (87-102); Mean Platelet Volume 9.7 FL (9.6-12.0); Monocytes # 0.1 10*3/uL (0.11-0.8); Monocytes % 0.5 % (1.7-12.7); Neutrophils # 8.4 10*3/uL (1.4-7.4); Neutrophils % 90.7 % (38.7-73.9); Platelet Count 347 T/CUMM (130-400); Red Blood Count 3.78 MC/CUMM (3.8-5.5); Red Cell Distribution Width 14.6 % (9.3-17.3); White Blood Count 9.3 T/CUMM (4-12)
[2018-12-15 04:55] LABS: Alanine Aminotransferase 11 U/L (13-56); Albumin 2.6 G/DL (3.4-5.0); Alkaline Phosphatase 77 U/L (45-117); Aspartate Amino Transferase 8 U/L (0-37); Bilirubin,Total < 0.39 MG/DL (0.2-1.0); Blood Urea Nitrogen 18 MG/DL (7-18); Calcium 8.2 MG/DL (8.5-10.1); Glucose 184 MG/DL (74-106); Osmolality,Calculated 281.7 MOS/KG (273-304); Potassium 3.7 MMOL/L (3.5-5.1); Sodium 138 MMOL/L (136-145); Total Protein 7.3 G/DL (6.4-8.3)
[2018-12-15 04:58] LABS: Anisocytosis 1+; Lymphocytes 3 % (20-55); Segmented Neutrophils 97 % (50-85); Total Cells Counted 100
[2018-12-15 04:59] LABS: Platelet Estimate Adequate
[2018-12-15] MEDS: BRIMONIDINE 0.15% OPH SOLN 1 DROP/DROPS BOTTLE BOTH EYES SCH ×2 (09:42→22:38)
[2018-12-15] MEDS: ASPIRIN CHEW 81 MG TABLET PO SCH (09:43)
[2018-12-15] MEDS: GLIMEPIRIDE 2 MG TABLET PO SCH ×2 (09:43→17:35)
[2018-12-15] MEDS: MULTIVITAMIN (CENTRUM) TABLET PO SCH (09:44)
[2018-12-15] MEDS: CARVEDILOL 3.125 MG TABLET PO SCH ×2 (09:44→22:38)
[2018-12-15] MEDS: DOCUSATE SODIUM 100 MG CAPSULE PO SCH ×2 (09:44→22:38)
[2018-12-15] MEDS: ENOXAPARIN 40 MG/0.4 ML SYRINGE SUBCUT SCH (09:45)
[2018-12-15] MEDS: LOSARTAN 50 MG TABLET PO SCH (09:46)
[2018-12-15] MEDS: PANTOPRAZOLE 40 MG VIAL IV SCH (11:08)
[2018-12-15] MEDS: FUROSEMIDE 40 MG/4 ML VIAL IV SCH ×2 (11:08→16:46)
[2018-12-15] MEDS ORDERED: NYSTATIN 500,000 UNIT/5 ML UDCUP SWISH/SWAL SCH (13:00)
[2018-12-15] MEDS: CLOTRIMAZOLE 10 MG TROCHE PO SCH ×3 (13:10→22:39)
[2018-12-15] MEDS: BIMATOPROST 0.01% OPH SOLN 2.5 ML BOTTLE BOTH EYES SCH (22:38)
[2018-12-15] MEDS: CLOPIDOGREL 75 MG TABLET PO SCH (22:39)
[2018-12-15] MEDS: LEVOTHYROXINE 100 MCG TABLET PO SCH (22:39)
[2018-12-15] MEDS: cefTRIAXone 1,000 MG in SYRINGE 1 EACH IV SCH (23:31)
[2018-12-16] MEDS: ALBUTEROL/IPRATROPIUM 3 ML NEB RESP TX SCH ×6 (00:06→19:50)
[2018-12-16] MEDS: INSULIN REGULAR 100 UNIT/ML SUBCUT SCH ×4 (02:52→18:38)
[2018-12-16] MEDS: methylPREDNISolone SOD SUC 40 MG/1 ML VIAL IV SCH ×3 (04:23→18:14)
[2018-12-16 05:04] LABS: Calcium 8.2 MG/DL (8.5-10.1); Osmolality,Calculated 286.5 MOS/KG (273-304); Potassium 4.1 MMOL/L (3.5-5.1)
[2018-12-16] MEDS: ASPIRIN CHEW 81 MG TABLET PO SCH (09:29)
[2018-12-16] MEDS: PANTOPRAZOLE 40 MG VIAL IV SCH (09:29)
[2018-12-16] MEDS: GLIMEPIRIDE 2 MG TABLET PO SCH ×2 (09:29→17:16)
[2018-12-16] MEDS: CARVEDILOL 3.125 MG TABLET PO SCH ×2 (09:29→21:20)
[2018-12-16] MEDS: CLOTRIMAZOLE 10 MG TROCHE PO SCH ×4 (09:29→21:19)
[2018-12-16] MEDS: FUROSEMIDE 20 MG TABLET PO SCH ×2 (09:30→17:16)
[2018-12-16] MEDS: DOCUSATE SODIUM 100 MG CAPSULE PO SCH ×2 (09:30→21:21)
[2018-12-16] MEDS: MULTIVITAMIN (CENTRUM) TABLET PO SCH (09:30)
[2018-12-16] MEDS: LOSARTAN 50 MG TABLET PO SCH (09:30)
[2018-12-16] MEDS: ENOXAPARIN 40 MG/0.4 ML SYRINGE SUBCUT SCH (09:34)
[2018-12-16] MEDS: BRIMONIDINE 0.15% OPH SOLN 1 DROP/DROPS BOTTLE BOTH EYES SCH ×2 (09:40→21:21)
[2018-12-16] MEDS ORDERED: LEVOFLOXACIN INJ 500 MG in PREMIX 1 EACH IV SCH (16:00)
[2018-12-16] MEDS: CLOPIDOGREL 75 MG TABLET PO SCH (21:20)
[2018-12-16] MEDS: SODIUM CHLORIDE 0.9% 1,000 ML IV SCH ×2 (21:22→23:21)
[2018-12-16] MEDS: LEVOTHYROXINE 100 MCG TABLET PO SCH (21:22)
[2018-12-16] MEDS: BIMATOPROST 0.01% OPH SOLN 2.5 ML BOTTLE BOTH EYES SCH (21:22)
[2018-12-17] MEDS: ALBUTEROL/IPRATROPIUM 3 ML NEB RESP TX SCH ×3 (00:34→07:36)
[2018-12-17] MEDS: INSULIN REGULAR 100 UNIT/ML SUBCUT SCH ×2 (00:45→05:23)
[2018-12-17] MEDS: methylPREDNISolone SOD SUC 40 MG/1 ML VIAL IV SCH (04:19)
[2018-12-17 04:56] LABS: Calcium 8.1 MG/DL (8.5-10.1); Osmolality,Calculated 284.7 MOS/KG (273-304); Potassium 3.9 MMOL/L (3.5-5.1)
[2018-12-17 07:43] VITALS: BP 116/53
[2018-12-17] MEDS: LOSARTAN 50 MG TABLET PO SCH (09:17)
[2018-12-17] MEDS: ASPIRIN CHEW 81 MG TABLET PO SCH (09:17)
[2018-12-17] MEDS: GLIMEPIRIDE 2 MG TABLET PO SCH (09:17)
[2018-12-17] MEDS: CARVEDILOL 3.125 MG TABLET PO SCH (09:17)
[2018-12-17] MEDS: CLOTRIMAZOLE 10 MG TROCHE PO SCH (09:17)
[2018-12-17] MEDS: FUROSEMIDE 20 MG TABLET PO SCH (09:17)
[2018-12-17] MEDS: DOCUSATE SODIUM 100 MG CAPSULE PO SCH (09:17)
[2018-12-17] MEDS: MULTIVITAMIN (CENTRUM) TABLET PO SCH (09:17)
[2018-12-17] MEDS: BRIMONIDINE 0.15% OPH SOLN 1 DROP/DROPS BOTTLE BOTH EYES SCH (09:18)
== END 2018-12-17 11:07 | disposition home health service (06) | DRG 194 ==
LOC: N.ED 16:30 → N.EDINP 16:30 → N.TELEN 19:19
PROVIDERS: ADMIT Family Medicine; ATTEND Family Medicine

== ENCOUNTER 2019-05-18 07:30 | Observation (INO) ==
[2019-05-18 09:42] LABS: Basophils # 0.1 10*3/uL (0.0-0.2); Basophils % 0.5 % (0.0-0.8); Eosinophils # 0.2 10*3/uL (0.0-0.87); Eosinophils % 1.8 % (0.00-10.9); Hematocrit 42.7 VOL% (35.7-47.0); Hemoglobin 13.5 GM/DL (12.0-16.0); Immature Granulocytes % 0.5 %; Immature Granulocytes Absolute 0.06 #; Lymphocytes # 1.3 10*3/uL (1.4-4.0); Lymphocytes % 11.6 % (21.3-54.2); Mean Corpuscular HGB Conc 31.6 GM/DL (32-36); Mean Corpuscular Volume 95.5 FL (87-102); Monocytes % 9.9 % (1.7-12.7); Neutrophils % 75.7 % (38.7-73.9); Platelet Count 320 T/CUMM (130-400); Red Blood Count 4.47 MC/CUMM (3.8-5.5); Red Cell Distribution Width 15.2 % (9.3-17.3); White Blood Count 11.1 T/CUMM (4-12)
[2019-05-18 10:05] LABS: Albumin 3.3 G/DL (3.4-5.0); Bilirubin,Total 0.4 MG/DL (0.2-1.0); Calcium 8.8 MG/DL (8.5-10.1); Osmolality,Calculated 282.1 MOS/KG (273-304); Total Protein 6.9 G/DL (6.4-8.3)
[2019-05-18] MEDS ORDERED: ACETAMINOPHEN 325 MG TABLET PO PRN (10:38)
[2019-05-18] MEDS ORDERED: FUROSEMIDE 40 MG/4 ML VIAL IV STA (10:40)
[2019-05-18] MEDS: ONDANSETRON 4 MG/2 ML VIAL IV PRN (15:13)
[2019-05-18] MEDS: DOCUSATE SODIUM 100 MG CAPSULE PO SCH (22:31)
[2019-05-18] MEDS ORDERED: ALUMINUM/MAGNES/SIMETH MAX STR 30 ML UDCUP PO PRN (22:51)
[2019-05-18] MEDS: PANTOPRAZOLE 40 MG TABLET PO SCH (23:01)
[2019-05-18 23:03] LABS: Apearance,Urine CLEAR (Clear); Bilirubin,Urine Negative (Negative); Blood, Urine Negative (Negative); Glucose,Urine (UA) Negative (Negative); Hyaline Casts,Urine 6 /LPF (0-3); Ketones,Urine Negative (Negative); Mucus,Urine Occasional /LPF (Occasional); Nitrite,Urine Negative (Negative); Protein,Urine Negative; RBC,Urine 1 /HPF (0-4); Squamous Epithelial Cell,Urine Occasional /HPF (0-10); Urine Color Straw (Yellow); Urine Specific Gravity 1.008 (1.001-1.035); Urine Urobilinogen < 2.0 EU/DL (0.2-1.0); WBC,Urine 1 /HPF (0-6)
[2019-05-19] MEDS: ONDANSETRON 4 MG/2 ML VIAL IV PRN (06:37)
[2019-05-19] MEDS ORDERED: ACETAMINOPHEN 325 MG TABLET PO PRN (07:01)
[2019-05-19] MEDS ORDERED: DEXTROMETHORPHAN ER 6 MG/ML 90 ML/BOTTLE PO PRN (07:01)
[2019-05-19] MEDS ORDERED: POLYETHYLENE GLYCOL POWDER 17 GM PACK PO PRN (07:01)
[2019-05-19] MEDS ORDERED: NYSTATIN CREAM 15 GM TUBE TOP PRN (07:01)
[2019-05-19] MEDS ORDERED: ALBUTEROL 2.5 MG/3 ML NEB RESP TX PRN (07:01)
[2019-05-19] MEDS ORDERED: EPINEPHRINE 0.3 MG SUBCUT PRN (07:01)
[2019-05-19] MEDS: MULTIVITAMIN (CENTRUM) TABLET PO SCH (08:45)
[2019-05-19] MEDS: NITROFURANTOIN MACRO/MONO 100 MG CAPSULE PO SCH ×2 (08:46→21:17)
[2019-05-19] MEDS: PANTOPRAZOLE 40 MG TABLET PO SCH ×2 (08:46→21:17)
[2019-05-19] MEDS: GLIMEPIRIDE 2 MG TABLET PO SCH ×2 (08:46→16:39)
[2019-05-19] MEDS: LOSARTAN 50 MG TABLET PO SCH (08:46)
[2019-05-19] MEDS: FUROSEMIDE 20 MG TABLET PO SCH ×2 (08:46→21:17)
[2019-05-19] MEDS: CARVEDILOL 3.125 MG TABLET PO SCH ×2 (08:47→21:17)
[2019-05-19] MEDS: ASPIRIN CHEW 81 MG TABLET PO SCH (08:47)
[2019-05-19] MEDS: DOCUSATE SODIUM 100 MG CAPSULE PO SCH ×2 (08:49→21:17)
[2019-05-19] MEDS ORDERED: PANTOPRAZOLE 40 MG TABLET PO SCH (09:00)
[2019-05-19] MEDS: ISOSORBIDE MONONITRATE 30 MG TABLET PO SCH (12:15)
[2019-05-19] MEDS ORDERED: FUROSEMIDE 40 MG/4 ML VIAL IV ONE (20:00)
[2019-05-19] MEDS ORDERED: CLOPIDOGREL 75 MG TABLET PO SCH (21:00)
[2019-05-19] MEDS ORDERED: BIMATOPROST 0.01% OPH SOLN 2.5 ML BOTTLE BOTH EYES SCH (21:00)
[2019-05-19] MEDS ORDERED: LEVOTHYROXINE 100 MCG TABLET PO SCH (21:00)
[2019-05-20 05:20] LABS: Basophils # 0.1 10*3/uL (0.0-0.2); Basophils % 0.8 % (0.0-0.8); Eosinophils # 0.6 10*3/uL (0.0-0.87); Eosinophils % 4.9 % (0.00-10.9); Hematocrit 39.5 VOL% (35.7-47.0); Hemoglobin 12.6 GM/DL (12.0-16.0); Immature Granulocytes % 0.7 %; Immature Granulocytes Absolute 0.08 #; Lymphocytes # 1.2 10*3/uL (1.4-4.0); Lymphocytes % 10.3 % (21.3-54.2); Mean Corpuscular HGB Conc 31.9 GM/DL (32-36); Mean Corpuscular Volume 94.7 FL (87-102); Mean Platelet Volume 9.6 FL (9.6-12.0); Monocytes % 12.2 % (1.7-12.7); Neutrophils % 71.1 % (38.7-73.9); Platelet Count 327 T/CUMM (130-400); Red Blood Count 4.17 MC/CUMM (3.8-5.5); Red Cell Distribution Width 15.2 % (9.3-17.3); White Blood Count 11.8 T/CUMM (4-12)
[2019-05-20 05:35] LABS: Calcium 8.7 MG/DL (8.5-10.1); Osmolality,Calculated 283.7 MOS/KG (273-304)
[2019-05-20 05:47] LABS: Free T4 (Free Thyroxine) 1.22 NG/DL (0.76-1.46); Thyroid Stimulating Hormone 3.13 uIU/ml (0.358-3.74)
[2019-05-20] MEDS: GLIMEPIRIDE 2 MG TABLET PO SCH (08:36)
[2019-05-20] MEDS: NITROFURANTOIN MACRO/MONO 100 MG CAPSULE PO SCH (08:37)
[2019-05-20] MEDS: CARVEDILOL 3.125 MG TABLET PO SCH (08:37)
[2019-05-20] MEDS: ASPIRIN CHEW 81 MG TABLET PO SCH (08:37)
[2019-05-20] MEDS: FUROSEMIDE 20 MG TABLET PO SCH (08:37)
[2019-05-20] MEDS: MULTIVITAMIN (CENTRUM) TABLET PO SCH (08:37)
[2019-05-20] MEDS: ISOSORBIDE MONONITRATE 30 MG TABLET PO SCH (08:38)
[2019-05-20] MEDS: PANTOPRAZOLE 40 MG TABLET PO SCH (08:38)
[2019-05-20] MEDS: LOSARTAN 50 MG TABLET PO SCH (08:38)
[2019-05-20] MEDS: DOCUSATE SODIUM 100 MG CAPSULE PO SCH (08:39)
[2019-05-20 12:23] VITALS: BP 108/42
[2019-05-20] MEDS: ONDANSETRON 4 MG/2 ML VIAL IV PRN (13:19)
== END 2019-05-20 13:58 | disposition home or self-care (01) ==
LOC: N.ED 07:30 → N.EDINP 07:30 → N.2E 11:29
PROVIDERS: ADMIT Family Medicine; ATTEND Family Medicine

== ENCOUNTER 2019-06-10 07:59 | Inpatient (IN) ==
[2019-06-10] MEDS ORDERED: LEVOFLOXACIN 500 MG TABLET PO STA (08:34)
[2019-06-10] MEDS ORDERED: methylPREDNISolone SOD SUC 125 MG/2 ML VIAL IV STA (08:34)
[2019-06-10] MEDS ORDERED: SODIUM CHLORIDE 0.9% 1,000 ML IV STA (08:35)
[2019-06-10] MEDS ORDERED: ACETAMINOPHEN 500 MG TABLET PO STA (08:36)
[2019-06-10] MEDS ORDERED: ALBUTEROL 2.5 MG/3 ML NEB RESP TX SCH (09:00)
[2019-06-10 09:01] LABS: Basophils # 0.1 10*3/uL (0.0-0.2); Basophils % 0.5 % (0.0-0.8); Eosinophils # 0.1 10*3/uL (0.0-0.87); Eosinophils % 0.8 % (0.00-10.9); Hematocrit 44.4 VOL% (35.7-47.0); Immature Granulocytes % 0.9 %; Immature Granulocytes Absolute 0.15 #; Lymphocytes % 5.8 % (21.3-54.2); Mean Corpuscular HGB Conc 31.5 GM/DL (32-36); Mean Corpuscular Volume 95.5 FL (87-102); Mean Platelet Volume 9.5 FL (9.6-12.0); Monocytes % 6.7 % (1.7-12.7); Neutrophils % 85.3 % (38.7-73.9); Platelet Count 356 T/CUMM (130-400); Red Blood Count 4.65 MC/CUMM (3.8-5.5); Red Cell Distribution Width 14.6 % (9.3-17.3); White Blood Count 16.8 T/CUMM (4-12)
[2019-06-10 09:10] LABS: INR 0.9; PT Patient Result 10.2 SECS; Partial Thromboplastin Time 23.2 SECS (0-40)
[2019-06-10 09:20] LABS: Albumin 3.4 G/DL (3.4-5.0); Bilirubin,Total 0.7 MG/DL (0.2-1.0); Calcium 9.4 MG/DL (8.5-10.1); Total Protein 9.1 G/DL (6.4-8.3)
[2019-06-10] MEDS ORDERED: SODIUM CHLORIDE 0.9% 1,000 ML IV SCH (13:12)
[2019-06-10] MEDS ORDERED: GLUCAGON 1 MG VIAL IM PRN (13:12)
[2019-06-10] MEDS ORDERED: ACETAMINOPHEN 325 MG TABLET PO PRN ×2 (13:12→16:45)
[2019-06-10] MEDS ORDERED: DEXTROSE 50% 25 GM/50 ML VIAL IV PRN (13:12)
[2019-06-10] MEDS: INSULIN LISPRO 100 UNIT/ML SUBCUT SCH ×3 (14:02→21:56)
[2019-06-10 14:28] LABS: Apearance,Urine CLEAR (Clear); Bacteria,Urine Occasional /HPF (Few); Bilirubin,Urine Negative (Negative); Blood, Urine Negative (Negative); Glucose,Urine (UA) Negative (Negative); Ketones,Urine Negative (Negative); Mucus,Urine Occasional /LPF (Occasional); Nitrite,Urine Negative (Negative); Protein,Urine Negative; RBC,Urine 1 /HPF (0-4); Squamous Epithelial Cell,Urine Occasional /HPF (0-10); Urine Color Yellow (Yellow); Urine Specific Gravity 1.015 (1.001-1.035); Urine Urobilinogen < 2.0 EU/DL (0.2-1.0); WBC,Urine 3 /HPF (0-6)
[2019-06-10] MEDS ORDERED: NITROGLYCERIN SL 0.4 MG TABLET SL PRN (16:45)
[2019-06-10] MEDS ORDERED: POLYETHYLENE GLYCOL POWDER 17 GM PACK PO PRN (16:45)
[2019-06-10] MEDS ORDERED: FAMOTIDINE 20 MG TABLET PO PRN (16:45)
[2019-06-10] MEDS ORDERED: NYSTATIN CREAM 15 GM TUBE TOP PRN (16:45)
[2019-06-10] MEDS ORDERED: DEXTROMETHORPHAN ER 6 MG/ML 90 ML/BOTTLE PO PRN (16:45)
[2019-06-10] MEDS ORDERED: FUROSEMIDE 40 MG/4 ML VIAL IV ONE (16:58)
[2019-06-10] MEDS: LEVOFLOXACIN INJ 250 MG in PREMIX 1 EACH IV SCH (17:24)
[2019-06-10] MEDS: GLIMEPIRIDE 2 MG TABLET PO SCH (17:24)
[2019-06-10] MEDS ORDERED: NYSTATIN CREAM 30 GM TUBE TOP PRN (18:00)
[2019-06-10 19:26] LABS: Apearance,Urine CLEAR (Clear); Bilirubin,Urine Negative (Negative); Blood, Urine Negative (Negative); Glucose,Urine (UA) Negative (Negative); Hyaline Casts,Urine 1 /LPF (0-3); Ketones,Urine Negative (Negative); Mucus,Urine Occasional /LPF (Occasional); Nitrite,Urine Negative (Negative); Protein,Urine Negative; RBC,Urine <1 /HPF (0-4); Squamous Epithelial Cell,Urine Occasional /HPF (0-10); Urine Color Yellow (Yellow); Urine Specific Gravity 1.017 (1.001-1.035); Urine Urobilinogen < 2.0 EU/DL (0.2-1.0); WBC,Urine 1 /HPF (0-6)
[2019-06-10] MEDS: CARVEDILOL 6.25 MG TABLET PO SCH (21:53)
[2019-06-10] MEDS: DOCUSATE SODIUM 100 MG CAPSULE PO SCH (21:56)
[2019-06-10] MEDS: BIMATOPROST 0.01% OPH SOLN 2.5 ML BOTTLE BOTH EYES SCH (21:56)
[2019-06-10] MEDS: BRIMONIDINE/TIMOLOL OPH SOLN 5 ML BOTTLE BOTH EYES SCH (21:56)
[2019-06-11 05:06] LABS: Basophils % 0.1 % (0.0-0.8); Hematocrit 35.5 VOL% (35.7-47.0); Hemoglobin 11.7 GM/DL (12.0-16.0); Immature Granulocytes % 0.7 %; Immature Granulocytes Absolute 0.08 #; Lymphocytes % 8.5 % (21.3-54.2); Mean Corpuscular Volume 93.4 FL (87-102); Mean Platelet Volume 9.7 FL (9.6-12.0); Monocytes % 4.3 % (1.7-12.7); Neutrophils % 86.4 % (38.7-73.9); Platelet Count 317 T/CUMM (130-400); Red Cell Distribution Width 14.6 % (9.3-17.3); White Blood Count 11.6 T/CUMM (4-12)
[2019-06-11] MEDS: INSULIN LISPRO 100 UNIT/ML SUBCUT SCH ×4 (08:00→20:08)
[2019-06-11] MEDS ORDERED: FUROSEMIDE 40 MG TABLET PO SCH (09:00)
[2019-06-11] MEDS: GLIMEPIRIDE 2 MG TABLET PO SCH ×2 (09:25→16:43)
[2019-06-11] MEDS: BRIMONIDINE/TIMOLOL OPH SOLN 5 ML BOTTLE BOTH EYES SCH ×2 (09:25→20:07)
[2019-06-11] MEDS: ENOXAPARIN 30 MG/0.3 ML SYRINGE SUBCUT SCH (09:25)
[2019-06-11] MEDS: ISOSORBIDE MONONITRATE 30 MG TABLET PO SCH (09:25)
[2019-06-11] MEDS: PANTOPRAZOLE 40 MG TABLET PO SCH (09:25)
[2019-06-11] MEDS: ASPIRIN CHEW 81 MG TABLET PO SCH (09:25)
[2019-06-11] MEDS: LOSARTAN 50 MG TABLET PO SCH (09:25)
[2019-06-11] MEDS: FUROSEMIDE 40 MG/4 ML VIAL IV SCH ×2 (09:25→15:08)
[2019-06-11] MEDS: LEVOTHYROXINE 100 MCG TABLET PO SCH (09:25)
[2019-06-11] MEDS: CARVEDILOL 6.25 MG TABLET PO SCH ×2 (10:25→20:07)
[2019-06-11] MEDS: DOCUSATE SODIUM 100 MG CAPSULE PO SCH ×2 (10:25→20:07)
[2019-06-11] MEDS: MULTIVITAMIN (CENTRUM) TABLET PO SCH (10:31)
[2019-06-11] MEDS: LEVOFLOXACIN INJ 250 MG in PREMIX 1 EACH IV SCH (16:40)
[2019-06-11] MEDS: ASCORBIC ACID 500 MG TABLET PO SCH ×2 (20:06→23:15)
[2019-06-11] MEDS: BIMATOPROST 0.01% OPH SOLN 2.5 ML BOTTLE BOTH EYES SCH (20:08)
[2019-06-12] MEDS: LEVOTHYROXINE 100 MCG TABLET PO SCH (06:13)
[2019-06-12] MEDS: INSULIN LISPRO 100 UNIT/ML SUBCUT SCH ×4 (07:57→21:02)
[2019-06-12] MEDS: GLIMEPIRIDE 2 MG TABLET PO SCH (09:24)
[2019-06-12] MEDS: FUROSEMIDE 40 MG/4 ML VIAL IV SCH ×2 (09:24→15:29)
[2019-06-12] MEDS: CARVEDILOL 6.25 MG TABLET PO SCH ×2 (09:27→21:01)
[2019-06-12] MEDS: MULTIVITAMIN (CENTRUM) TABLET PO SCH (09:27)
[2019-06-12] MEDS: PANTOPRAZOLE 40 MG TABLET PO SCH (09:28)
[2019-06-12] MEDS: ENOXAPARIN 30 MG/0.3 ML SYRINGE SUBCUT SCH (09:28)
[2019-06-12] MEDS: BRIMONIDINE/TIMOLOL OPH SOLN 5 ML BOTTLE BOTH EYES SCH ×2 (09:28→21:01)
[2019-06-12] MEDS: ISOSORBIDE MONONITRATE 30 MG TABLET PO SCH (09:28)
[2019-06-12] MEDS: LOSARTAN 50 MG TABLET PO SCH (09:28)
[2019-06-12] MEDS: ASPIRIN CHEW 81 MG TABLET PO SCH (09:28)
[2019-06-12] MEDS: DOCUSATE SODIUM 100 MG CAPSULE PO SCH ×3 (09:30→21:03)
[2019-06-12] MEDS: LEVOFLOXACIN INJ 250 MG in PREMIX 1 EACH IV SCH (16:59)
[2019-06-12] MEDS ORDERED: CALCIUM (CARBONATE) 500 MG TABLET PO SCH ×2 (18:05→22:00)
[2019-06-12] MEDS: BIMATOPROST 0.01% OPH SOLN 2.5 ML BOTTLE BOTH EYES SCH (21:01)
[2019-06-13 06:08] LABS: Basophils # 0.1 10*3/uL (0.0-0.2); Basophils % 0.4 % (0.0-0.8); Eosinophils # 0.3 10*3/uL (0.0-0.87); Eosinophils % 2.8 % (0.00-10.9); Hematocrit 38.5 VOL% (35.7-47.0); Hemoglobin 12.5 GM/DL (12.0-16.0); Immature Granulocytes % 0.8 %; Immature Granulocytes Absolute 0.09 #; Lymphocytes # 2.1 10*3/uL (1.4-4.0); Mean Corpuscular HGB Conc 32.5 GM/DL (32-36); Mean Corpuscular Volume 94.1 FL (87-102); Mean Platelet Volume 9.9 FL (9.6-12.0); Monocytes % 11.2 % (1.7-12.7); Neutrophils % 66.8 % (38.7-73.9); Platelet Count 368 T/CUMM (130-400); Red Blood Count 4.09 MC/CUMM (3.8-5.5); Red Cell Distribution Width 14.8 % (9.3-17.3); White Blood Count 11.8 T/CUMM (4-12)
[2019-06-13] MEDS: LEVOTHYROXINE 100 MCG TABLET PO SCH (06:29)
[2019-06-13 06:37] LABS: Calcium 8.8 MG/DL (8.5-10.1); Osmolality,Calculated 283.5 MOS/KG (273-304)
[2019-06-13] MEDS: ASPIRIN CHEW 81 MG TABLET PO SCH (08:34)
[2019-06-13] MEDS: ISOSORBIDE MONONITRATE 30 MG TABLET PO SCH (08:34)
[2019-06-13] MEDS: LOSARTAN 50 MG TABLET PO SCH (08:34)
[2019-06-13] MEDS: DOCUSATE SODIUM 100 MG CAPSULE PO SCH ×2 (08:34→21:25)
[2019-06-13] MEDS: FUROSEMIDE 40 MG/4 ML VIAL IV SCH ×2 (08:34→16:32)
[2019-06-13] MEDS: BRIMONIDINE/TIMOLOL OPH SOLN 5 ML BOTTLE BOTH EYES SCH ×2 (08:34→21:37)
[2019-06-13] MEDS: GLIMEPIRIDE 2 MG TABLET PO SCH ×3 (08:34→21:47)
[2019-06-13] MEDS: MULTIVITAMIN (CENTRUM) TABLET PO SCH (08:34)
[2019-06-13] MEDS: CARVEDILOL 6.25 MG TABLET PO SCH ×2 (08:34→21:25)
[2019-06-13] MEDS: ENOXAPARIN 30 MG/0.3 ML SYRINGE SUBCUT SCH (08:35)
[2019-06-13] MEDS: PANTOPRAZOLE 40 MG TABLET PO SCH (08:35)
[2019-06-13] MEDS: INSULIN LISPRO 100 UNIT/ML SUBCUT SCH ×4 (08:49→21:37)
[2019-06-13] MEDS: ONDANSETRON 4 MG/2 ML VIAL IV PRN ×2 (10:38→16:32)
[2019-06-13] MEDS: LEVOFLOXACIN INJ 250 MG in PREMIX 1 EACH IV SCH (16:31)
[2019-06-13] MEDS: BIMATOPROST 0.01% OPH SOLN 2.5 ML BOTTLE BOTH EYES SCH (21:24)
[2019-06-14] MEDS: LEVOTHYROXINE 100 MCG TABLET PO SCH (06:17)
[2019-06-14] MEDS: INSULIN LISPRO 100 UNIT/ML SUBCUT SCH (08:51)
[2019-06-14] MEDS: MULTIVITAMIN (CENTRUM) TABLET PO SCH (08:52)
[2019-06-14] MEDS: PANTOPRAZOLE 40 MG TABLET PO SCH (08:53)
[2019-06-14] MEDS: ASPIRIN CHEW 81 MG TABLET PO SCH (08:54)
[2019-06-14] MEDS: CARVEDILOL 6.25 MG TABLET PO SCH (08:54)
[2019-06-14] MEDS: DOCUSATE SODIUM 100 MG CAPSULE PO SCH (08:54)
[2019-06-14] MEDS: GLIMEPIRIDE 2 MG TABLET PO SCH (08:55)
[2019-06-14] MEDS: ISOSORBIDE MONONITRATE 30 MG TABLET PO SCH (08:56)
[2019-06-14] MEDS: LOSARTAN 50 MG TABLET PO SCH (08:56)
[2019-06-14] MEDS: FUROSEMIDE 40 MG/4 ML VIAL IV SCH (08:57)
[2019-06-14] MEDS: BRIMONIDINE/TIMOLOL OPH SOLN 5 ML BOTTLE BOTH EYES SCH (09:01)
[2019-06-14] MEDS: ENOXAPARIN 30 MG/0.3 ML SYRINGE SUBCUT SCH (09:01)
[2019-06-14 10:12] VITALS: BP 119/58
== END 2019-06-14 11:10 | disposition home or self-care (01) | DRG 194 ==
LOC: N.ED 07:59 → N.EDINP 09:37 → N.5E 12:09
PROVIDERS: ADMIT Family Medicine; ATTEND Family Medicine

== ENCOUNTER 2019-07-08 10:56 | Inpatient (IN) ==
[2019-07-08] MEDS ORDERED: LEVOFLOXACIN INJ 500 MG in PREMIX 1 EACH IV STA (11:30)
[2019-07-08 12:46] LABS: Basophils # 0.1 10*3/uL (0.0-0.2); Basophils % 0.3 % (0.0-0.8); Eosinophils # 0.2 10*3/uL (0.0-0.87); Eosinophils % 1.6 % (0.00-10.9); Hematocrit 43.2 VOL% (35.7-47.0); Hemoglobin 14.1 GM/DL (12.0-16.0); Immature Granulocytes % 0.3 %; Immature Granulocytes Absolute 0.05 #; Lymphocytes # 1.8 10*3/uL (1.4-4.0); Lymphocytes % 12.4 % (21.3-54.2); Mean Corpuscular HGB Conc 32.6 GM/DL (32-36); Mean Corpuscular Volume 94.1 FL (87-102); Mean Platelet Volume 9.5 FL (9.6-12.0); Monocytes % 10.8 % (1.7-12.7); Neutrophils % 74.6 % (38.7-73.9); Platelet Count 352 T/CUMM (130-400); Red Blood Count 4.59 MC/CUMM (3.8-5.5); Red Cell Distribution Width 14.3 % (9.3-17.3); White Blood Count 14.3 T/CUMM (4-12)
[2019-07-08 13:00] LABS: Apearance,Urine CLOUDY (Clear); Bilirubin,Urine Negative (Negative); Blood, Urine Moderate mg/dL (Negative); Glucose,Urine (UA) Negative (Negative); Ketones,Urine Negative (Negative); Nitrite,Urine Negative (Negative); Protein,Urine 100 MG/DL; Urine Color Yellow (Yellow); Urine Specific Gravity 1.009 (1.001-1.035); Urine Urobilinogen < 2.0 EU/DL (0.2-1.0); WBC,Urine 4116 /HPF (0-6)
[2019-07-08 13:05] LABS: Albumin 3.3 G/DL (3.4-5.0); Bilirubin,Total 0.5 MG/DL (0.2-1.0); Calcium 9.3 MG/DL (8.5-10.1); Total Protein 8.5 G/DL (6.4-8.3)
[2019-07-08] MEDS ORDERED: ACETAMINOPHEN 325 MG TABLET PO PRN (14:38)
[2019-07-08] MEDS ORDERED: GLUCAGON 1 MG VIAL IM PRN (14:38)
[2019-07-08] MEDS ORDERED: ONDANSETRON 4 MG/2 ML VIAL IV PRN (14:38)
[2019-07-08] MEDS ORDERED: DEXTROSE 10% 250 ML BAG IV PRN (14:38)
[2019-07-08] MEDS ORDERED: INSULIN LISPRO 100 UNIT/ML SUBCUT SCH (16:30)
[2019-07-08] MEDS ORDERED: ONDANSETRON 4 MG TABLET PO PRN (16:43)
[2019-07-08] MEDS ORDERED: POLYETHYLENE GLYCOL POWDER 17 GM PACK PO PRN (16:43)
[2019-07-08] MEDS ORDERED: Epinephrine [Epipen 2-Pak] 0.3 MG SUBCUT PRN (16:43)
[2019-07-08] MEDS: SODIUM CHLORIDE 0.45% 1,000 ML IV SCH (17:05)
[2019-07-08] MEDS: GLIMEPIRIDE 2 MG TABLET PO SCH (17:40)
[2019-07-08] MEDS ORDERED: ALBUTEROL 2.5 MG/3 ML NEB RESP TX PRN (19:00)
[2019-07-08] MEDS: CARVEDILOL 6.25 MG TABLET PO SCH (20:20)
[2019-07-08] MEDS: DOCUSATE SODIUM 100 MG CAPSULE PO SCH (20:20)
[2019-07-08] MEDS: ENOXAPARIN 30 MG/0.3 ML SYRINGE SUBCUT SCH (20:20)
[2019-07-08] MEDS: BIMATOPROST 0.01% OPH SOLN 2.5 ML BOTTLE BOTH EYES SCH (20:20)
[2019-07-08] MEDS: BRIMONIDINE/TIMOLOL OPH SOLN 5 ML BOTTLE BOTH EYES SCH (20:20)
[2019-07-09] MEDS: LEVOTHYROXINE 100 MCG TABLET PO SCH (06:23)
[2019-07-09 06:41] LABS: Calcium 8.4 MG/DL (8.5-10.1); Osmolality,Calculated 276.4 MOS/KG (273-304)
[2019-07-09] MEDS: PANTOPRAZOLE 40 MG TABLET PO SCH (10:13)
[2019-07-09] MEDS: MULTIVITAMIN (CENTRUM) TABLET PO SCH (10:13)
[2019-07-09] MEDS: GLIMEPIRIDE 2 MG TABLET PO SCH ×2 (10:13→16:22)
[2019-07-09] MEDS: LOSARTAN 50 MG TABLET PO SCH (10:15)
[2019-07-09] MEDS: FUROSEMIDE 40 MG TABLET PO SCH (10:15)
[2019-07-09] MEDS: CARVEDILOL 6.25 MG TABLET PO SCH ×2 (10:16→21:23)
[2019-07-09] MEDS: DOCUSATE SODIUM 100 MG CAPSULE PO SCH ×2 (10:16→21:36)
[2019-07-09] MEDS: ISOSORBIDE MONONITRATE 30 MG TABLET PO SCH (10:16)
[2019-07-09] MEDS: ASPIRIN CHEW 81 MG TABLET PO SCH (10:16)
[2019-07-09] MEDS: BRIMONIDINE/TIMOLOL OPH SOLN 5 ML BOTTLE BOTH EYES SCH ×2 (10:17→21:23)
[2019-07-09] MEDS: SODIUM CHLORIDE 0.45% 1,000 ML IV SCH (12:15)
[2019-07-09] MEDS: MEROPENEM 1,000 MG in SYRINGE 1 EACH IV SCH ×2 (12:16→23:47)
[2019-07-09] MEDS: BIMATOPROST 0.01% OPH SOLN 2.5 ML BOTTLE BOTH EYES SCH (21:23)
[2019-07-09] MEDS: ENOXAPARIN 30 MG/0.3 ML SYRINGE SUBCUT SCH (21:23)
[2019-07-10] MEDS: diphenhydrAMINE CAP 25 MG CAPSULE PO PRN ×2 (00:13→14:58)
[2019-07-10] MEDS: LEVOTHYROXINE 100 MCG TABLET PO SCH (06:25)
[2019-07-10] MEDS: DOCUSATE SODIUM 100 MG CAPSULE PO SCH ×2 (09:39→21:42)
[2019-07-10] MEDS: ISOSORBIDE MONONITRATE 30 MG TABLET PO SCH (09:39)
[2019-07-10] MEDS: MULTIVITAMIN (CENTRUM) TABLET PO SCH (09:39)
[2019-07-10] MEDS: CARVEDILOL 6.25 MG TABLET PO SCH ×2 (09:39→21:19)
[2019-07-10] MEDS: GLIMEPIRIDE 2 MG TABLET PO SCH ×2 (09:39→16:48)
[2019-07-10] MEDS: PANTOPRAZOLE 40 MG TABLET PO SCH (09:39)
[2019-07-10] MEDS: FUROSEMIDE 40 MG TABLET PO SCH (09:39)
[2019-07-10] MEDS: LOSARTAN 50 MG TABLET PO SCH (09:39)
[2019-07-10] MEDS: ASPIRIN CHEW 81 MG TABLET PO SCH (09:39)
[2019-07-10] MEDS: BRIMONIDINE/TIMOLOL OPH SOLN 5 ML BOTTLE BOTH EYES SCH ×2 (09:43→21:19)
[2019-07-10] MEDS: SODIUM CHLORIDE 0.45% 1,000 ML IV SCH (10:45)
[2019-07-10] MEDS ORDERED: LEVOFLOXACIN INJ 500 MG in PREMIX 1 EACH IV SCH (11:30)
[2019-07-10] MEDS: MEROPENEM 1,000 MG in SODIUM CHLORIDE 0.9% 100 ML IV SCH (14:59)
[2019-07-10] MEDS ORDERED: FUROSEMIDE 20 MG/2 ML VIAL IV ONE (16:33)
[2019-07-10] MEDS: BIMATOPROST 0.01% OPH SOLN 2.5 ML BOTTLE BOTH EYES SCH (21:19)
[2019-07-10] MEDS: ENOXAPARIN 30 MG/0.3 ML SYRINGE SUBCUT SCH (21:19)
[2019-07-11] MEDS: diphenhydrAMINE CAP 25 MG CAPSULE PO PRN ×2 (02:23→14:55)
[2019-07-11] MEDS: MEROPENEM 1,000 MG in SODIUM CHLORIDE 0.9% 100 ML IV SCH ×2 (02:23→14:55)
[2019-07-11 04:43] LABS: Basophils # 0.1 10*3/uL (0.0-0.2); Basophils % 0.6 % (0.0-0.8); Eosinophils # 0.5 10*3/uL (0.0-0.87); Eosinophils % 4.6 % (0.00-10.9); Hemoglobin 11.4 GM/DL (12.0-16.0); Immature Granulocytes % 0.7 %; Immature Granulocytes Absolute 0.07 #; Lymphocytes # 1.6 10*3/uL (1.4-4.0); Lymphocytes % 15.3 % (21.3-54.2); Mean Corpuscular HGB Conc 32.6 GM/DL (32-36); Mean Corpuscular Volume 94.6 FL (87-102); Mean Platelet Volume 9.5 FL (9.6-12.0); Monocytes % 12.7 % (1.7-12.7); Neutrophils % 66.1 % (38.7-73.9); Platelet Count 293 T/CUMM (130-400); White Blood Count 10.5 T/CUMM (4-12)
[2019-07-11 05:08] LABS: Calcium 8.4 MG/DL (8.5-10.1); Osmolality,Calculated 273.8 MOS/KG (273-304)
[2019-07-11] MEDS: LEVOTHYROXINE 100 MCG TABLET PO SCH (06:17)
[2019-07-11] MEDS: GLIMEPIRIDE 2 MG TABLET PO SCH ×2 (09:24→16:20)
[2019-07-11] MEDS: ASPIRIN CHEW 81 MG TABLET PO SCH (09:25)
[2019-07-11] MEDS: BRIMONIDINE/TIMOLOL OPH SOLN 5 ML BOTTLE BOTH EYES SCH ×2 (09:26→21:02)
[2019-07-11] MEDS: FUROSEMIDE 40 MG TABLET PO SCH (09:26)
[2019-07-11] MEDS: MULTIVITAMIN (CENTRUM) TABLET PO SCH (09:26)
[2019-07-11] MEDS: LOSARTAN 50 MG TABLET PO SCH (09:26)
[2019-07-11] MEDS: ISOSORBIDE MONONITRATE 30 MG TABLET PO SCH (09:26)
[2019-07-11] MEDS: PANTOPRAZOLE 40 MG TABLET PO SCH (09:26)
[2019-07-11] MEDS: DOCUSATE SODIUM 100 MG CAPSULE PO SCH ×2 (09:26→21:03)
[2019-07-11] MEDS: CARVEDILOL 6.25 MG TABLET PO SCH ×2 (09:26→21:03)
[2019-07-11] MEDS: BIMATOPROST 0.01% OPH SOLN 2.5 ML BOTTLE BOTH EYES SCH (21:02)
[2019-07-11] MEDS: ENOXAPARIN 30 MG/0.3 ML SYRINGE SUBCUT SCH (21:03)
[2019-07-12] MEDS: MEROPENEM 1,000 MG in SODIUM CHLORIDE 0.9% 100 ML IV SCH (02:13)
[2019-07-12] MEDS: LEVOTHYROXINE 100 MCG TABLET PO SCH (06:04)
[2019-07-12 07:30] VITALS: BP 129/55
[2019-07-12] MEDS: FUROSEMIDE 40 MG TABLET PO SCH (09:42)
[2019-07-12] MEDS: MULTIVITAMIN (CENTRUM) TABLET PO SCH (09:42)
[2019-07-12] MEDS: ASPIRIN CHEW 81 MG TABLET PO SCH (09:43)
[2019-07-12] MEDS: DOCUSATE SODIUM 100 MG CAPSULE PO SCH (09:43)
[2019-07-12] MEDS: ISOSORBIDE MONONITRATE 30 MG TABLET PO SCH (09:43)
[2019-07-12] MEDS: CARVEDILOL 6.25 MG TABLET PO SCH (09:43)
[2019-07-12] MEDS: PANTOPRAZOLE 40 MG TABLET PO SCH (09:43)
[2019-07-12] MEDS: GLIMEPIRIDE 2 MG TABLET PO SCH (09:45)
[2019-07-12] MEDS: BRIMONIDINE/TIMOLOL OPH SOLN 5 ML BOTTLE BOTH EYES SCH (09:45)
[2019-07-12] MEDS: LOSARTAN 50 MG TABLET PO SCH (09:58)
== END 2019-07-12 11:39 | disposition home or self-care (01) | DRG 690 ==
LOC: N.ED 10:56 → N.EDINP 14:38 → N.5E 16:08
PROVIDERS: ADMIT Family Medicine; ATTEND Family Medicine

== ENCOUNTER 2019-07-15 09:52 | Inpatient (IN) ==
[2019-07-15] MEDS ORDERED: GLUCAGON 1 MG VIAL IM PRN (10:45)
[2019-07-15] MEDS ORDERED: DEXTROSE 50% 25 GM/50 ML VIAL IV PRN (10:45)
[2019-07-15] MEDS ORDERED: ACETAMINOPHEN 325 MG TABLET PO PRN (10:45)
[2019-07-15] MEDS ORDERED: ALBUTEROL 2.5 MG/3 ML NEB RESP TX PRN (10:48)
[2019-07-15] MEDS: ALBUTEROL 2.5 MG/3 ML NEB RESP TX SCH ×2 (13:05→19:17)
[2019-07-15 13:36] LABS: Albumin 3.4 G/DL (3.4-5.0); Bilirubin,Total 0.7 MG/DL (0.2-1.0); Calcium 9.6 MG/DL (8.5-10.1); Osmolality,Calculated 271.2 MOS/KG (273-304)
[2019-07-15] MEDS: SODIUM CHLORIDE 0.45% 1,000 ML IV SCH (14:15)
[2019-07-15] MEDS: MEROPENEM 500 MG in SODIUM CHLORIDE 0.9% 100 ML IV SCH (14:15)
[2019-07-15] MEDS ORDERED: DEXTROMETHORPHAN ER 6 MG/ML 90 ML/BOTTLE PO PRN (16:23)
[2019-07-15] MEDS: BENZONATATE 100 MG CAPSULE PO SCH ×2 (16:34→20:08)
[2019-07-15] MEDS: ONDANSETRON 4 MG/2 ML VIAL IV PRN (17:55)
[2019-07-15] MEDS: ENOXAPARIN 40 MG/0.4 ML SYRINGE SUBCUT SCH (20:08)
[2019-07-15] MEDS: DOCUSATE SODIUM 100 MG CAPSULE PO SCH (20:09)
[2019-07-16] MEDS: MEROPENEM 500 MG in SODIUM CHLORIDE 0.9% 100 ML IV SCH ×2 (00:17→13:29)
[2019-07-16] MEDS: ALBUTEROL 2.5 MG/3 ML NEB RESP TX SCH ×4 (00:35→20:11)
[2019-07-16 05:22] LABS: Basophils # 0.1 10*3/uL (0.0-0.2); Basophils % 0.5 % (0.0-0.8); Eosinophils # 0.4 10*3/uL (0.0-0.87); Eosinophils % 2.9 % (0.00-10.9); Immature Granulocytes % 0.7 %; Immature Granulocytes Absolute 0.09 #; Lymphocytes # 1.2 10*3/uL (1.4-4.0); Lymphocytes % 9.7 % (21.3-54.2); Mean Corpuscular HGB Conc 32.4 GM/DL (32-36); Mean Corpuscular Volume 95.2 FL (87-102); Mean Platelet Volume 9.8 FL (9.6-12.0); Monocytes % 12.7 % (1.7-12.7); Neutrophils % 73.5 % (38.7-73.9); Platelet Count 329 T/CUMM (130-400); Red Blood Count 3.57 MC/CUMM (3.8-5.5); Red Cell Distribution Width 13.6 % (9.3-17.3); White Blood Count 12.8 T/CUMM (4-12)
[2019-07-16 05:42] LABS: Risk Ratio 5.1; VLDL CHOLESTEROL 28.6 MG/DL
[2019-07-16] MEDS: ONDANSETRON 4 MG/2 ML VIAL IV PRN (06:21)
[2019-07-16] MEDS: BENZONATATE 100 MG CAPSULE PO SCH ×3 (09:13→20:35)
[2019-07-16] MEDS: DOCUSATE SODIUM 100 MG CAPSULE PO SCH ×3 (09:13→20:38)
[2019-07-16] MEDS: PANTOPRAZOLE 40 MG TABLET PO SCH (09:14)
[2019-07-16] MEDS: ENOXAPARIN 40 MG/0.4 ML SYRINGE SUBCUT SCH (20:35)
[2019-07-16] MEDS ORDERED: FLUCONAZOLE 150 MG TABLET PO ONE (22:30)
[2019-07-16] MEDS: NYSTATIN 500,000 UNIT/5 ML UDCUP SWISH/SWAL SCH (22:31)
[2019-07-17] MEDS: MEROPENEM 500 MG in SODIUM CHLORIDE 0.9% 100 ML IV SCH ×2 (00:11→12:14)
[2019-07-17] MEDS: SODIUM CHLORIDE 0.45% 1,000 ML IV SCH ×3 (00:13→14:40)
[2019-07-17] MEDS: ALBUTEROL 2.5 MG/3 ML NEB RESP TX SCH ×4 (01:00→19:22)
[2019-07-17 05:21] LABS: Basophils # 0.1 10*3/uL (0.0-0.2); Basophils % 0.8 % (0.0-0.8); Eosinophils # 0.5 10*3/uL (0.0-0.87); Eosinophils % 5.6 % (0.00-10.9); Hematocrit 33.3 VOL% (35.7-47.0); Hemoglobin 10.5 GM/DL (12.0-16.0); Immature Granulocytes % 0.7 %; Immature Granulocytes Absolute 0.06 #; Lymphocytes # 1.8 10*3/uL (1.4-4.0); Lymphocytes % 19.7 % (21.3-54.2); Mean Corpuscular HGB Conc 31.5 GM/DL (32-36); Mean Corpuscular Volume 96.5 FL (87-102); Mean Platelet Volume 9.2 FL (9.6-12.0); Monocytes % 13.9 % (1.7-12.7); Neutrophils % 59.3 % (38.7-73.9); Platelet Count 360 T/CUMM (130-400); Red Blood Count 3.45 MC/CUMM (3.8-5.5); Red Cell Distribution Width 13.7 % (9.3-17.3); White Blood Count 9.1 T/CUMM (4-12)
[2019-07-17 05:39] LABS: Calcium 8.3 MG/DL (8.5-10.1); Osmolality,Calculated 277.4 MOS/KG (273-304)
[2019-07-17] MEDS: ONDANSETRON 4 MG/2 ML VIAL IV PRN (06:49)
[2019-07-17] MEDS: DOCUSATE SODIUM 100 MG CAPSULE PO SCH ×2 (09:13→21:18)
[2019-07-17] MEDS: BENZONATATE 100 MG CAPSULE PO SCH ×3 (09:13→21:18)
[2019-07-17] MEDS: NYSTATIN 500,000 UNIT/5 ML UDCUP SWISH/SWAL SCH ×3 (09:14→21:17)
[2019-07-17] MEDS: PANTOPRAZOLE 40 MG TABLET PO SCH (09:14)
[2019-07-17] MEDS ORDERED: LACTAID PO PRN (17:45)
[2019-07-17] MEDS: ENOXAPARIN 40 MG/0.4 ML SYRINGE SUBCUT SCH (21:17)
[2019-07-18] MEDS: ALBUTEROL 2.5 MG/3 ML NEB RESP TX SCH ×4 (00:32→19:25)
[2019-07-18] MEDS: MEROPENEM 500 MG in SODIUM CHLORIDE 0.9% 100 ML IV SCH ×2 (01:29→12:00)
[2019-07-18 04:54] LABS: Basophils # 0.1 10*3/uL (0.0-0.2); Basophils % 0.5 % (0.0-0.8); Eosinophils # 0.5 10*3/uL (0.0-0.87); Eosinophils % 5.6 % (0.00-10.9); Hematocrit 31.1 VOL% (35.7-47.0); Hemoglobin 9.8 GM/DL (12.0-16.0); Immature Granulocytes % 0.7 %; Immature Granulocytes Absolute 0.06 #; Lymphocytes # 1.6 10*3/uL (1.4-4.0); Lymphocytes % 17.8 % (21.3-54.2); Mean Corpuscular HGB Conc 31.5 GM/DL (32-36); Mean Corpuscular Volume 97.2 FL (87-102); Monocytes % 12.3 % (1.7-12.7); Neutrophils % 63.1 % (38.7-73.9); Platelet Count 374 T/CUMM (130-400); Red Cell Distribution Width 13.7 % (9.3-17.3); White Blood Count 9.2 T/CUMM (4-12)
[2019-07-18 05:16] LABS: Calcium 8.5 MG/DL (8.5-10.1); Osmolality,Calculated 280.1 MOS/KG (273-304)
[2019-07-18] MEDS: DOCUSATE SODIUM 100 MG CAPSULE PO SCH ×2 (09:05→22:58)
[2019-07-18] MEDS: NYSTATIN 500,000 UNIT/5 ML UDCUP SWISH/SWAL SCH ×3 (09:05→22:57)
[2019-07-18] MEDS: PANTOPRAZOLE 40 MG TABLET PO SCH (09:05)
[2019-07-18] MEDS: BENZONATATE 100 MG CAPSULE PO SCH ×3 (09:05→22:58)
[2019-07-18] MEDS: SODIUM CHLORIDE 0.45% 1,000 ML IV SCH (12:00)
[2019-07-18] MEDS: ENOXAPARIN 40 MG/0.4 ML SYRINGE SUBCUT SCH (22:57)
[2019-07-19] MEDS: MEROPENEM 500 MG in SODIUM CHLORIDE 0.9% 100 ML IV SCH ×2 (00:37→13:20)
[2019-07-19] MEDS: ALBUTEROL 2.5 MG/3 ML NEB RESP TX SCH ×4 (00:47→19:24)
[2019-07-19] MEDS: DOCUSATE SODIUM 100 MG CAPSULE PO SCH ×2 (09:39→20:17)
[2019-07-19] MEDS: PANTOPRAZOLE 40 MG TABLET PO SCH (09:39)
[2019-07-19] MEDS: NYSTATIN 500,000 UNIT/5 ML UDCUP SWISH/SWAL SCH ×3 (09:39→20:17)
[2019-07-19] MEDS: BENZONATATE 100 MG CAPSULE PO SCH ×3 (09:39→20:17)
[2019-07-19] MEDS: amLODIPine 5 MG TABLET PO SCH (16:02)
[2019-07-19] MEDS: ENOXAPARIN 40 MG/0.4 ML SYRINGE SUBCUT SCH (20:18)
[2019-07-20] MEDS: MEROPENEM 500 MG in SODIUM CHLORIDE 0.9% 100 ML IV SCH (01:35)
[2019-07-20] MEDS: ALBUTEROL 2.5 MG/3 ML NEB RESP TX SCH ×4 (01:39→19:44)
[2019-07-20] MEDS: BENZONATATE 100 MG CAPSULE PO SCH ×3 (09:43→20:41)
[2019-07-20] MEDS: NYSTATIN 500,000 UNIT/5 ML UDCUP SWISH/SWAL SCH ×3 (09:43→20:41)
[2019-07-20] MEDS: DOCUSATE SODIUM 100 MG CAPSULE PO SCH ×2 (09:43→20:41)
[2019-07-20] MEDS: PANTOPRAZOLE 40 MG TABLET PO SCH (09:44)
[2019-07-20] MEDS: AMPICILLIN INJ 1,000 MG in SODIUM CHLORIDE 0.9% 100 ML IV SCH ×3 (09:44→20:41)
[2019-07-20] MEDS: amLODIPine 5 MG TABLET PO SCH (09:54)
[2019-07-20] MEDS: SODIUM CHLORIDE 0.45% 1,000 ML IV SCH (09:55)
[2019-07-20] MEDS: ENOXAPARIN 40 MG/0.4 ML SYRINGE SUBCUT SCH (20:42)
[2019-07-21] MEDS: ALBUTEROL 2.5 MG/3 ML NEB RESP TX SCH ×2 (01:02→06:53)
[2019-07-21] MEDS: AMPICILLIN INJ 1,000 MG in SODIUM CHLORIDE 0.9% 100 ML IV SCH ×2 (03:09→09:51)
[2019-07-21] MEDS: DOCUSATE SODIUM 100 MG CAPSULE PO SCH (09:51)
[2019-07-21] MEDS: BENZONATATE 100 MG CAPSULE PO SCH (09:52)
[2019-07-21] MEDS: amLODIPine 5 MG TABLET PO SCH (09:52)
[2019-07-21] MEDS: NYSTATIN 500,000 UNIT/5 ML UDCUP SWISH/SWAL SCH (09:52)
[2019-07-21] MEDS: PANTOPRAZOLE 40 MG TABLET PO SCH (09:52)
[2019-07-21] MEDS: SODIUM CHLORIDE 0.45% 1,000 ML IV SCH (11:00)
[2019-07-21 11:40] VITALS: BP 175/79
== END 2019-07-21 12:45 | disposition home or self-care (01) | DRG 196 ==
LOC: N.2E 10:55
PROVIDERS: ADMIT Family Medicine; ATTEND Family Medicine

== ENCOUNTER 2019-09-29 21:25 | Inpatient (IN) ==
[2019-09-29] MEDS ORDERED: ONDANSETRON 4 MG/2 ML VIAL IV STA (22:23)
[2019-09-29] MEDS ORDERED: MORPHINE 4 MG/1 ML VIAL IV STA (22:23)
[2019-09-29] MEDS ORDERED: SODIUM CHLORIDE 0.9% 500 ML IV STA (22:23)
[2019-09-29 22:57] LABS: Apearance,Urine CLOUDY (Clear); Bilirubin,Urine Negative (Negative); Blood, Urine Large mg/dL (Negative); Glucose,Urine (UA) Negative (Negative); Hyaline Casts,Urine 2 /LPF (0-3); Ketones,Urine Negative (Negative); Mucus,Urine Occasional /LPF (Occasional); Nitrite,Urine Negative (Negative); Protein,Urine 30 MG/DL; RBC,Urine 124 /HPF (0-4); Squamous Epithelial Cell,Urine Occasional /HPF (0-10); Urine Color Yellow (Yellow); Urine Specific Gravity 1.008 (1.001-1.035); Urine Urobilinogen < 2.0 EU/DL (0.2-1.0); WBC,Urine 672 /HPF (0-6)
[2019-09-29 23:25] LABS: Basophils # 0.1 10*3/uL (0.0-0.2); Basophils % 0.4 % (0.0-0.8); Eosinophils # 0.1 10*3/uL (0.0-0.87); Eosinophils % 0.4 % (0.00-10.9); Hematocrit 41.8 VOL% (35.7-47.0); Hemoglobin 13.5 GM/DL (12.0-16.0); Immature Granulocytes % 0.5 %; Immature Granulocytes Absolute 0.11 #; Lymphocytes # 1.3 10*3/uL (1.4-4.0); Lymphocytes % 6.2 % (21.3-54.2); Mean Corpuscular HGB Conc 32.3 GM/DL (32-36); Mean Corpuscular Volume 93.5 FL (87-102); Mean Platelet Volume 9.1 FL (9.6-12.0); Neutrophils % 84.5 % (38.7-73.9); Platelet Count 364 T/CUMM (130-400); Red Blood Count 4.47 MC/CUMM (3.8-5.5); Red Cell Distribution Width 14.9 % (9.3-17.3)
[2019-09-29 23:38] LABS: INR 0.9; PT Patient Result 10.3 SECS (9.6-12.2)
[2019-09-29 23:43] LABS: Alanine Aminotransferase 12 U/L (13-56); Albumin 3.3 G/DL (3.4-5.0); Alkaline Phosphatase 80 U/L (45-117); Amylase 36 U/L (25-115); Aspartate Amino Transferase 9 U/L (0-37); Blood Urea Nitrogen 16 MG/DL (7-18); Calcium 8.5 MG/DL (8.5-10.1); Estimated Glom Filtration Rate 42 ML/MIN; Glucose 157 MG/DL (74-106); Osmolality,Calculated 273.1 MOS/KG (273-304); Total Protein 7.7 G/DL (6.4-8.3); Troponin I < 0.015 NG/ML (0.00-0.045)
[2019-09-30] MEDS ORDERED: PIPERACILLIN/TAZOBACTAM 3,375 MG in SODIUM CHLORIDE 0.9% 100 ML IV SCH (00:30)
[2019-09-30] MEDS ORDERED: DOCUSATE CALCIUM 240 MG CAPSULE PO PRN (00:48)
[2019-09-30] MEDS ORDERED: ALBUTEROL 2.5 MG/3 ML NEB RESP TX PRN (00:48)
[2019-09-30] MEDS ORDERED: ACETAMINOPHEN 325 MG TABLET PO PRN ×2 (00:48)
[2019-09-30] MEDS ORDERED: POLYETHYLENE GLYCOL POWDER 17 GM PACK PO PRN (00:48)
[2019-09-30] MEDS ORDERED: FAMOTIDINE 20 MG TABLET PO PRN (00:48)
[2019-09-30] MEDS ORDERED: GLUCAGON 1 MG VIAL IM PRN (00:48)
[2019-09-30] MEDS ORDERED: NITROGLYCERIN SL 0.4 MG TABLET SL PRN (00:48)
[2019-09-30] MEDS ORDERED: ONDANSETRON ODT 4 MG TABLET PO PRN (00:48)
[2019-09-30] MEDS ORDERED: DEXTROMETHORPHAN ER 6 MG/ML 90 ML/BOTTLE PO PRN (00:48)
[2019-09-30] MEDS ORDERED: EPINEPHrine 1 MG/ML VIAL SUBCUT PRN (00:48)
[2019-09-30] MEDS ORDERED: MORPHINE 4 MG/1 ML VIAL IV PRN (00:48)
[2019-09-30] MEDS ORDERED: ONDANSETRON 4 MG/2 ML VIAL IV PRN (00:48)
[2019-09-30] MEDS ORDERED: NYSTATIN CREAM 15 GM TUBE TOP PRN (00:48)
[2019-09-30] MEDS ORDERED: DEXTROSE 50% 25 GM/50 ML VIAL IV PRN (00:48)
[2019-09-30 01:02] LABS: Lymphocytes 5 % (20-55); Platelet Estimate Normal; Segmented Neutrophils 87 % (50-85); Total Cells Counted 100
[2019-09-30] MEDS ORDERED: INFLUENZA VIRUS VACCINE 0.5 ML SYRINGE IM ONE (01:14)
[2019-09-30] MEDS: INSULIN REGULAR 100 UNIT/ML SUBCUT SCH ×2 (02:01→06:21)
[2019-09-30] MEDS: ALBUTEROL/IPRATROPIUM 3 ML NEB RESP TX SCH ×6 (03:38→22:55)
[2019-09-30 04:09] LABS: Basophils # 0.1 10*3/uL (0.0-0.2); Basophils % 0.3 % (0.0-0.8); Eosinophils # 0.1 10*3/uL (0.0-0.87); Eosinophils % 0.3 % (0.00-10.9); Hemoglobin 11.9 GM/DL (12.0-16.0); Immature Granulocytes % 0.5 %; Immature Granulocytes Absolute 0.09 #; Lymphocytes # 2.1 10*3/uL (1.4-4.0); Lymphocytes % 10.8 % (21.3-54.2); Mean Corpuscular HGB Conc 32.2 GM/DL (32-36); Mean Corpuscular Volume 92.3 FL (87-102); Mean Platelet Volume 9.5 FL (9.6-12.0); Monocytes % 8.4 % (1.7-12.7); Neutrophils % 79.7 % (38.7-73.9); Platelet Count 338 T/CUMM (130-400); Red Blood Count 4.01 MC/CUMM (3.8-5.5); Red Cell Distribution Width 14.9 % (9.3-17.3); White Blood Count 19.7 T/CUMM (4-12)
[2019-09-30 04:27] LABS: Bilirubin,Total 0.6 MG/DL (0.2-1.0); Calcium 8.2 MG/DL (8.5-10.1); Osmolality,Calculated 278.7 MOS/KG (273-304); Total Protein 6.5 G/DL (6.4-8.3)
[2019-09-30] MEDS: SODIUM CHLORIDE 0.9% 1,000 ML IV SCH ×3 (04:49→23:48)
[2019-09-30] MEDS: LEVOTHYROXINE 100 MCG TABLET PO SCH (06:20)
[2019-09-30] MEDS ORDERED: BRIMONIDINE/TIMOLOL OPH SOLN 5 ML BOTTLE BOTH EYES SCH (09:00)
[2019-09-30] MEDS ORDERED: RANITIDINE 150 MG TABLET PO SCH (09:00)
[2019-09-30] MEDS: GLIMEPIRIDE 2 MG TABLET PO SCH ×2 (09:25→17:16)
[2019-09-30] MEDS: DOCUSATE SODIUM 100 MG CAPSULE PO SCH ×2 (09:25→22:20)
[2019-09-30] MEDS: FUROSEMIDE 40 MG TABLET PO SCH (09:26)
[2019-09-30] MEDS: ISOSORBIDE MONONITRATE 30 MG TABLET PO SCH (09:26)
[2019-09-30] MEDS: LOSARTAN 50 MG TABLET PO SCH (09:26)
[2019-09-30] MEDS: carvediloL 6.25 MG TABLET PO SCH ×2 (09:26→16:37)
[2019-09-30] MEDS: MULTIVITAMIN (CENTRUM) TABLET PO SCH (09:26)
[2019-09-30] MEDS: ASPIRIN CHEW 81 MG TABLET PO SCH (09:26)
[2019-09-30] MEDS: PANTOPRAZOLE 40 MG TABLET PO SCH (09:26)
[2019-09-30] MEDS: LEVOFLOXACIN INJ 500 MG in PREMIX 1 EACH IV SCH (09:48)
[2019-09-30 10:47] LABS: Apearance,Urine CLOUDY (Clear); Bilirubin,Urine Negative (Negative); Blood, Urine Moderate mg/dL (Negative); Glucose,Urine (UA) Negative (Negative); Ketones,Urine Negative (Negative); Mucus,Urine Occasional /LPF (Occasional); Nitrite,Urine Negative (Negative); Protein,Urine 30 MG/DL; RBC,Urine 5 /HPF (0-4); Squamous Epithelial Cell,Urine Occasional /HPF (0-10); Urine Color Yellow (Yellow); Urine Specific Gravity 1.009 (1.001-1.035); Urine Urobilinogen < 2.0 EU/DL (0.2-1.0); WBC,Urine 394 /HPF (0-6)
[2019-09-30] MEDS: DICLOFENAC 1% GEL 100 GM TUBE TOP SCH ×4 (10:58→21:58)
[2019-09-30] MEDS: ALBUTEROL 2.5 MG/3 ML NEB RESP TX SCH ×2 (13:23→18:26)
[2019-09-30] MEDS ORDERED: BIMATOPROST 0.01% OPH SOLN 2.5 ML BOTTLE BOTH EYES SCH (21:00)
[2019-10-01] MEDS: ALBUTEROL/IPRATROPIUM 3 ML NEB RESP TX SCH ×6 (03:26→23:55)
[2019-10-01 05:30] LABS: Basophils % 0.4 % (0.0-0.8); Eosinophils # 0.3 10*3/uL (0.0-0.87); Eosinophils % 2.4 % (0.00-10.9); Hemoglobin 10.5 GM/DL (12.0-16.0); Immature Granulocytes % 0.4 %; Immature Granulocytes Absolute 0.04 #; Lymphocytes # 2.1 10*3/uL (1.4-4.0); Lymphocytes % 18.7 % (21.3-54.2); Mean Corpuscular HGB Conc 31.8 GM/DL (32-36); Mean Corpuscular Volume 94.8 FL (87-102); Mean Platelet Volume 9.4 FL (9.6-12.0); Monocytes % 10.8 % (1.7-12.7); Neutrophils % 67.3 % (38.7-73.9); Platelet Count 294 T/CUMM (130-400); Red Blood Count 3.48 MC/CUMM (3.8-5.5); White Blood Count 11.2 T/CUMM (4-12)
[2019-10-01] MEDS: LEVOTHYROXINE 100 MCG TABLET PO SCH (05:30)
[2019-10-01 06:08] LABS: Albumin 2.5 G/DL (3.4-5.0); Bilirubin,Total 0.5 MG/DL (0.2-1.0); Calcium 7.7 MG/DL (8.5-10.1); Osmolality,Calculated 290.6 MOS/KG (273-304); Thyroid Stimulating Hormone 2.44 uIU/ml (0.358-3.74)
[2019-10-01] MEDS: ASPIRIN CHEW 81 MG TABLET PO SCH (09:24)
[2019-10-01] MEDS: carvediloL 6.25 MG TABLET PO SCH ×2 (09:25→15:59)
[2019-10-01] MEDS: ISOSORBIDE MONONITRATE 30 MG TABLET PO SCH (09:25)
[2019-10-01] MEDS: GLIMEPIRIDE 2 MG TABLET PO SCH ×2 (09:25→16:00)
[2019-10-01] MEDS: FUROSEMIDE 40 MG TABLET PO SCH (09:25)
[2019-10-01] MEDS: PANTOPRAZOLE 40 MG TABLET PO SCH (09:25)
[2019-10-01] MEDS: LOSARTAN 50 MG TABLET PO SCH (09:26)
[2019-10-01] MEDS: LEVOFLOXACIN INJ 500 MG in PREMIX 1 EACH IV SCH (09:26)
[2019-10-01] MEDS: DICLOFENAC 1% GEL 100 GM TUBE TOP SCH ×4 (09:27→20:37)
[2019-10-01] MEDS: DOCUSATE SODIUM 100 MG CAPSULE PO SCH ×2 (09:28→21:41)
[2019-10-01] MEDS: MULTIVITAMIN (CENTRUM) TABLET PO SCH (09:28)
[2019-10-01] MEDS: SODIUM CHLORIDE 0.9% 1,000 ML IV SCH ×2 (09:33→20:39)
[2019-10-01] MEDS: METHOCARBAMOL 500 MG TABLET PO SCH ×3 (13:30→20:38)
[2019-10-02 04:35] LABS: Basophils # 0.1 10*3/uL (0.0-0.2); Basophils % 0.5 % (0.0-0.8); Eosinophils # 0.7 10*3/uL (0.0-0.87); Eosinophils % 5.6 % (0.00-10.9); Hematocrit 34.9 VOL% (35.7-47.0); Hemoglobin 11.1 GM/DL (12.0-16.0); Immature Granulocytes % 0.3 %; Immature Granulocytes Absolute 0.04 #; Lymphocytes # 1.9 10*3/uL (1.4-4.0); Lymphocytes % 15.9 % (21.3-54.2); Mean Corpuscular HGB Conc 31.8 GM/DL (32-36); Mean Corpuscular Volume 96.1 FL (87-102); Mean Platelet Volume 9.8 FL (9.6-12.0); Monocytes % 10.9 % (1.7-12.7); Neutrophils % 66.8 % (38.7-73.9); Platelet Count 317 T/CUMM (130-400); Red Blood Count 3.63 MC/CUMM (3.8-5.5); White Blood Count 11.6 T/CUMM (4-12)
[2019-10-02] MEDS: ALBUTEROL/IPRATROPIUM 3 ML NEB RESP TX SCH (05:30)
[2019-10-02] MEDS: LEVOTHYROXINE 100 MCG TABLET PO SCH (07:09)
[2019-10-02] MEDS: DOCUSATE SODIUM 100 MG CAPSULE PO SCH ×2 (08:35→21:23)
[2019-10-02] MEDS: FUROSEMIDE 40 MG TABLET PO SCH (08:36)
[2019-10-02] MEDS: ASPIRIN CHEW 81 MG TABLET PO SCH (08:36)
[2019-10-02] MEDS: ISOSORBIDE MONONITRATE 30 MG TABLET PO SCH (08:36)
[2019-10-02] MEDS: GLIMEPIRIDE 2 MG TABLET PO SCH ×2 (08:36→16:21)
[2019-10-02] MEDS: PANTOPRAZOLE 40 MG TABLET PO SCH (08:36)
[2019-10-02] MEDS: LOSARTAN 50 MG TABLET PO SCH (08:36)
[2019-10-02] MEDS: MULTIVITAMIN (CENTRUM) TABLET PO SCH (08:36)
[2019-10-02] MEDS: carvediloL 6.25 MG TABLET PO SCH ×2 (08:37→16:21)
[2019-10-02] MEDS: METHOCARBAMOL 500 MG TABLET PO SCH ×2 (08:37→21:24)
[2019-10-02] MEDS: LEVOFLOXACIN INJ 500 MG in PREMIX 1 EACH IV SCH (08:38)
[2019-10-02] MEDS: DICLOFENAC 1% GEL 100 GM TUBE TOP SCH ×4 (09:04→21:41)
[2019-10-02] MEDS ORDERED: FUROSEMIDE 40 MG/4 ML VIAL IV ONE (10:04)
[2019-10-02] MEDS: SODIUM CHLORIDE 0.9% 1,000 ML IV SCH (12:48)
[2019-10-03] MEDS: LEVOTHYROXINE 100 MCG TABLET PO SCH (05:26)
[2019-10-03] MEDS: METHOCARBAMOL 500 MG TABLET PO SCH ×2 (08:26→21:05)
[2019-10-03] MEDS: GLIMEPIRIDE 2 MG TABLET PO SCH ×2 (08:27→16:09)
[2019-10-03] MEDS: LOSARTAN 50 MG TABLET PO SCH (08:27)
[2019-10-03] MEDS: ASPIRIN CHEW 81 MG TABLET PO SCH (08:27)
[2019-10-03] MEDS: carvediloL 6.25 MG TABLET PO SCH ×2 (08:27→16:09)
[2019-10-03] MEDS: FUROSEMIDE 40 MG TABLET PO SCH (08:27)
[2019-10-03] MEDS: ISOSORBIDE MONONITRATE 30 MG TABLET PO SCH (08:27)
[2019-10-03] MEDS: PANTOPRAZOLE 40 MG TABLET PO SCH (08:27)
[2019-10-03] MEDS: DOCUSATE SODIUM 100 MG CAPSULE PO SCH ×2 (08:27→21:07)
[2019-10-03] MEDS: MULTIVITAMIN (CENTRUM) TABLET PO SCH (08:29)
[2019-10-03] MEDS: MEROPENEM 500 MG in SODIUM CHLORIDE 0.9% 100 ML IV SCH ×3 (08:34→18:32)
[2019-10-03] MEDS: DICLOFENAC 1% GEL 100 GM TUBE TOP SCH ×4 (08:35→21:06)
[2019-10-04] MEDS: MEROPENEM 500 MG in SODIUM CHLORIDE 0.9% 100 ML IV SCH ×4 (00:32→21:02)
[2019-10-04] MEDS: LEVOTHYROXINE 100 MCG TABLET PO SCH (05:26)
[2019-10-04] MEDS: LOSARTAN 50 MG TABLET PO SCH (09:30)
[2019-10-04] MEDS: GLIMEPIRIDE 2 MG TABLET PO SCH ×2 (09:30→16:41)
[2019-10-04] MEDS: ISOSORBIDE MONONITRATE 30 MG TABLET PO SCH (09:30)
[2019-10-04] MEDS: carvediloL 6.25 MG TABLET PO SCH ×2 (09:30→16:41)
[2019-10-04] MEDS: FUROSEMIDE 40 MG TABLET PO SCH (09:30)
[2019-10-04] MEDS: METHOCARBAMOL 500 MG TABLET PO SCH ×3 (09:31→21:02)
[2019-10-04] MEDS: ASPIRIN CHEW 81 MG TABLET PO SCH (09:31)
[2019-10-04] MEDS: PANTOPRAZOLE 40 MG TABLET PO SCH (09:31)
[2019-10-04] MEDS: MULTIVITAMIN (CENTRUM) TABLET PO SCH (09:33)
[2019-10-04] MEDS: DOCUSATE SODIUM 100 MG CAPSULE PO SCH ×2 (09:34→21:41)
[2019-10-04] MEDS: DICLOFENAC 1% GEL 100 GM TUBE TOP SCH ×4 (09:42→21:06)
[2019-10-05] MEDS: MEROPENEM 500 MG in SODIUM CHLORIDE 0.9% 100 ML IV SCH ×2 (03:35→09:47)
[2019-10-05] MEDS: LEVOTHYROXINE 100 MCG TABLET PO SCH (05:33)
[2019-10-05 08:25] VITALS: BP 149/46
[2019-10-05] MEDS: PANTOPRAZOLE 40 MG TABLET PO SCH (09:52)
[2019-10-05] MEDS: ISOSORBIDE MONONITRATE 30 MG TABLET PO SCH (09:52)
[2019-10-05] MEDS: LOSARTAN 50 MG TABLET PO SCH (09:52)
[2019-10-05] MEDS: MULTIVITAMIN (CENTRUM) TABLET PO SCH (09:52)
[2019-10-05] MEDS: GLIMEPIRIDE 2 MG TABLET PO SCH (09:52)
[2019-10-05] MEDS: DOCUSATE SODIUM 100 MG CAPSULE PO SCH (09:52)
[2019-10-05] MEDS: carvediloL 6.25 MG TABLET PO SCH (09:52)
[2019-10-05] MEDS: FUROSEMIDE 40 MG TABLET PO SCH (09:52)
[2019-10-05] MEDS: ASPIRIN CHEW 81 MG TABLET PO SCH (09:52)
[2019-10-05] MEDS: DICLOFENAC 1% GEL 100 GM TUBE TOP SCH (10:55)
[2019-10-05] MEDS: METHOCARBAMOL 500 MG TABLET PO SCH (10:55)
== END 2019-10-05 11:55 | disposition home or self-care (01) | DRG 690 ==
LOC: N.ED 21:25 → N.EDINP 09-30 00:10 → N.2E 09-30 00:24
PROVIDERS: ADMIT Family Medicine; ATTEND Family Medicine

== ENCOUNTER 2019-10-17 16:14 | Inpatient (IN) ==
[2019-10-17] MEDS ORDERED: FUROSEMIDE 40 MG/4 ML VIAL IV STA (16:43)
[2019-10-17] MEDS: ALBUTEROL 2.5 MG/3 ML NEB RESP TX SCH (17:00)
[2019-10-17 17:10] LABS: Basophils # 0.1 10*3/uL (0.0-0.2); Basophils % 0.7 % (0.0-0.8); Eosinophils # 0.2 10*3/uL (0.0-0.87); Eosinophils % 2.1 % (0.00-10.9); Hematocrit 46.9 VOL% (35.7-47.0); Hemoglobin 14.9 GM/DL (12.0-16.0); Immature Granulocytes % 0.6 %; Immature Granulocytes Absolute 0.06 #; Lymphocytes # 1.5 10*3/uL (1.4-4.0); Lymphocytes % 13.8 % (21.3-54.2); Mean Corpuscular HGB Conc 31.8 GM/DL (32-36); Mean Platelet Volume 9.5 FL (9.6-12.0); Monocytes % 13.2 % (1.7-12.7); Neutrophils % 69.6 % (38.7-73.9); Platelet Count 383 T/CUMM (130-400); Red Blood Count 4.99 MC/CUMM (3.8-5.5); Red Cell Distribution Width 14.5 % (9.3-17.3); White Blood Count 10.8 T/CUMM (4-12)
[2019-10-17 17:23] LABS: PT Patient Result 10.5 SECS (9.6-12.2); Partial Thromboplastin Time 25.2 SECS (20.8-36.0)
[2019-10-17 17:38] LABS: Albumin 3.6 G/DL (3.4-5.0); Bilirubin,Total 0.6 MG/DL (0.2-1.0); Calcium 8.7 MG/DL (8.5-10.1); Osmolality,Calculated 275.8 MOS/KG (273-304); Total Protein 8.7 G/DL (6.4-8.3)
[2019-10-17] MEDS ORDERED: DEXTROSE 50% 25 GM/50 ML VIAL IV PRN (17:51)
[2019-10-17] MEDS ORDERED: GLUCAGON 1 MG VIAL IM PRN (17:51)
[2019-10-17] MEDS ORDERED: ACETAMINOPHEN 325 MG TABLET PO PRN (17:51)
[2019-10-17] MEDS ORDERED: Epinephrine [Epipen 2-Pak] 0.3 MG SUBCUT PRN (18:03)
[2019-10-17] MEDS ORDERED: POLYETHYLENE GLYCOL POWDER 17 GM PACK PO PRN (18:03)
[2019-10-17] MEDS ORDERED: NITROGLYCERIN SL 0.4 MG TABLET SL PRN (18:03)
[2019-10-17] MEDS: methylPREDNISolone SOD SUC 40 MG/1 ML VIAL IV SCH (21:02)
[2019-10-17] MEDS: ONDANSETRON 4 MG/2 ML VIAL IV PRN (21:08)
[2019-10-17] MEDS: DEXTROMETHORPHAN ER 6 MG/ML 90 ML/BOTTLE PO PRN (21:10)
[2019-10-17] MEDS: ENOXAPARIN 30 MG/0.3 ML SYRINGE SUBCUT SCH (21:11)
[2019-10-17] MEDS: carvediloL 6.25 MG TABLET PO SCH (21:11)
[2019-10-17] MEDS: INSULIN LISPRO 100 UNIT/ML SUBCUT SCH (21:11)
[2019-10-17] MEDS: SODIUM CHLORIDE 0.45% 1,000 ML IV SCH (21:50)
[2019-10-17] MEDS: MEROPENEM 1,000 MG in SODIUM CHLORIDE 0.9% 100 ML IV SCH (21:50)
[2019-10-18 01:06] LABS: Apearance,Urine Slightly Hazy (Clear); Bacteria,Urine Occasional /HPF (Few); Bilirubin,Urine Negative (Negative); Blood, Urine Small mg/dL (Negative); Glucose,Urine (UA) Negative (Negative); Hyaline Casts,Urine 17 /LPF (0-3); Ketones,Urine Negative (Negative); Mucus,Urine Occasional /LPF (Occasional); Nitrite,Urine Negative (Negative); Protein,Urine Negative; RBC,Urine 11 /HPF (0-4); Squamous Epithelial Cell,Urine Occasional /HPF (0-10); Urine Color Straw (Yellow); Urine Specific Gravity 1.008 (1.001-1.035); Urine Urobilinogen < 2.0 EU/DL (0.2-1.0); WBC,Urine 118 /HPF (0-6)
[2019-10-18 05:32] LABS: Basophils % 0.4 % (0.0-0.8); Hematocrit 41.8 VOL% (35.7-47.0); Hemoglobin 13.2 GM/DL (12.0-16.0); Immature Granulocytes % 0.6 %; Immature Granulocytes Absolute 0.05 #; Lymphocytes # 1.1 10*3/uL (1.4-4.0); Lymphocytes % 13.3 % (21.3-54.2); Mean Corpuscular HGB Conc 31.6 GM/DL (32-36); Mean Corpuscular Volume 94.1 FL (87-102); Mean Platelet Volume 9.6 FL (9.6-12.0); Neutrophils % 84.7 % (38.7-73.9); Platelet Count 369 T/CUMM (130-400); Red Blood Count 4.44 MC/CUMM (3.8-5.5); Red Cell Distribution Width 14.5 % (9.3-17.3); White Blood Count 8.3 T/CUMM (4-12)
[2019-10-18 06:04] LABS: Calcium 8.6 MG/DL (8.5-10.1); Osmolality,Calculated 281.1 MOS/KG (273-304); Risk Ratio 5.53; VLDL CHOLESTEROL 25.2 MG/DL
[2019-10-18] MEDS: methylPREDNISolone SOD SUC 40 MG/1 ML VIAL IV SCH ×3 (06:25→20:37)
[2019-10-18] MEDS: LEVOTHYROXINE 100 MCG TABLET PO SCH (06:25)
[2019-10-18] MEDS: INSULIN LISPRO 100 UNIT/ML SUBCUT SCH ×4 (08:34→20:53)
[2019-10-18] MEDS: PANTOPRAZOLE 40 MG TABLET PO SCH (08:35)
[2019-10-18] MEDS: MULTIVITAMIN (CENTRUM) TABLET PO SCH (08:35)
[2019-10-18] MEDS: carvediloL 6.25 MG TABLET PO SCH ×2 (08:35→16:26)
[2019-10-18] MEDS: ISOSORBIDE MONONITRATE 30 MG TABLET PO SCH (08:35)
[2019-10-18] MEDS: ASPIRIN CHEW 81 MG TABLET PO SCH (08:35)
[2019-10-18] MEDS: DEXTROMETHORPHAN ER 6 MG/ML 90 ML/BOTTLE PO PRN ×2 (08:36→20:36)
[2019-10-18] MEDS: MEROPENEM 1,000 MG in SODIUM CHLORIDE 0.9% 100 ML IV SCH ×2 (08:36→20:36)
[2019-10-18] MEDS: GLIMEPIRIDE 2 MG TABLET PO SCH ×2 (08:36→16:26)
[2019-10-18] MEDS: FUROSEMIDE 40 MG TABLET PO SCH (08:36)
[2019-10-18] MEDS: LOSARTAN 50 MG TABLET PO SCH (09:08)
[2019-10-18] MEDS: ONDANSETRON 4 MG/2 ML VIAL IV PRN ×2 (10:14→18:36)
[2019-10-18] MEDS: SODIUM CHLORIDE 0.45% 1,000 ML IV SCH (16:44)
[2019-10-18] MEDS: AZITHROMYCIN INJ 500 MG in SODIUM CHLORIDE 0.9% 250 ML IV SCH (17:54)
[2019-10-18] MEDS: ALBUTEROL/IPRATROPIUM 3 ML NEB RESP TX PRN (19:55)
[2019-10-18] MEDS: DORNASE ALFA 2.5 MG/2.5 ML VIAL RESP TX SCH (19:55)
[2019-10-18] MEDS: BUDESONIDE 0.5 MG/2 ML NEB RESP TX SCH (19:55)
[2019-10-18] MEDS: ENOXAPARIN 30 MG/0.3 ML SYRINGE SUBCUT SCH (20:37)
[2019-10-19] MEDS: methylPREDNISolone SOD SUC 40 MG/1 ML VIAL IV SCH ×3 (05:21→21:35)
[2019-10-19] MEDS: LEVOTHYROXINE 100 MCG TABLET PO SCH (05:21)
[2019-10-19] MEDS: BUDESONIDE 0.5 MG/2 ML NEB RESP TX SCH ×2 (07:26→20:00)
[2019-10-19] MEDS: DORNASE ALFA 2.5 MG/2.5 ML VIAL RESP TX SCH ×2 (07:32→20:00)
[2019-10-19] MEDS: INSULIN LISPRO 100 UNIT/ML SUBCUT SCH ×4 (08:44→21:29)
[2019-10-19] MEDS: PANTOPRAZOLE 40 MG TABLET PO SCH (08:45)
[2019-10-19] MEDS: GLIMEPIRIDE 2 MG TABLET PO SCH ×2 (08:45→18:41)
[2019-10-19] MEDS: carvediloL 6.25 MG TABLET PO SCH ×2 (08:45→18:42)
[2019-10-19] MEDS: FUROSEMIDE 40 MG TABLET PO SCH (08:46)
[2019-10-19] MEDS: ISOSORBIDE MONONITRATE 30 MG TABLET PO SCH (08:46)
[2019-10-19] MEDS: ASPIRIN CHEW 81 MG TABLET PO SCH (08:46)
[2019-10-19] MEDS: LOSARTAN 50 MG TABLET PO SCH (08:46)
[2019-10-19] MEDS: MEROPENEM 500 MG in SODIUM CHLORIDE 0.9% 100 ML IV SCH ×2 (08:47→18:42)
[2019-10-19] MEDS: MULTIVITAMIN (CENTRUM) TABLET PO SCH (10:52)
[2019-10-19] MEDS: METHENAMINE HIPPURATE 1 GM TABLET PO SCH (21:27)
[2019-10-19] MEDS: BIMATOPROST 0.01% OPH SOLN 2.5 ML BOTTLE BOTH EYES SCH (21:27)
[2019-10-19] MEDS: BRIMONIDINE/TIMOLOL OPH SOLN 5 ML BOTTLE BOTH EYES SCH (21:27)
[2019-10-19] MEDS: ENOXAPARIN 40 MG/0.4 ML SYRINGE SUBCUT SCH (21:28)
[2019-10-19] MEDS: AZITHROMYCIN INJ 500 MG in SODIUM CHLORIDE 0.9% 250 ML IV SCH (21:29)
[2019-10-20] MEDS: MEROPENEM 500 MG in SODIUM CHLORIDE 0.9% 100 ML IV SCH ×3 (01:42→17:49)
[2019-10-20 05:42] LABS: Basophils % 0.1 % (0.0-0.8); Hematocrit 38.4 VOL% (35.7-47.0); Hemoglobin 12.7 GM/DL (12.0-16.0); Immature Granulocytes % 0.7 %; Immature Granulocytes Absolute 0.09 #; Lymphocytes # 1.2 10*3/uL (1.4-4.0); Mean Corpuscular HGB Conc 33.1 GM/DL (32-36); Mean Corpuscular Volume 91.6 FL (87-102); Mean Platelet Volume 9.6 FL (9.6-12.0); Monocytes % 2.1 % (1.7-12.7); Neutrophils % 88.1 % (38.7-73.9); Platelet Count 325 T/CUMM (130-400); Red Blood Count 4.19 MC/CUMM (3.8-5.5); Red Cell Distribution Width 14.3 % (9.3-17.3); White Blood Count 12.8 T/CUMM (4-12)
[2019-10-20 06:17] LABS: Calcium 8.4 MG/DL (8.5-10.1); Osmolality,Calculated 290.1 MOS/KG (273-304)
[2019-10-20] MEDS: LEVOTHYROXINE 100 MCG TABLET PO SCH (07:08)
[2019-10-20] MEDS: methylPREDNISolone SOD SUC 40 MG/1 ML VIAL IV SCH ×3 (07:10→21:55)
[2019-10-20] MEDS: BUDESONIDE 0.5 MG/2 ML NEB RESP TX SCH ×2 (07:17→19:53)
[2019-10-20] MEDS: DORNASE ALFA 2.5 MG/2.5 ML VIAL RESP TX SCH ×2 (07:22→20:04)
[2019-10-20] MEDS: INSULIN LISPRO 100 UNIT/ML SUBCUT SCH ×4 (08:49→22:21)
[2019-10-20] MEDS: GLIMEPIRIDE 2 MG TABLET PO SCH ×2 (08:50→17:49)
[2019-10-20] MEDS: ISOSORBIDE MONONITRATE 30 MG TABLET PO SCH (08:50)
[2019-10-20] MEDS: carvediloL 6.25 MG TABLET PO SCH ×2 (08:50→17:49)
[2019-10-20] MEDS: ASPIRIN CHEW 81 MG TABLET PO SCH (08:50)
[2019-10-20] MEDS: FUROSEMIDE 40 MG TABLET PO SCH (08:50)
[2019-10-20] MEDS: METHENAMINE HIPPURATE 1 GM TABLET PO SCH ×2 (08:50→21:55)
[2019-10-20] MEDS: LOSARTAN 50 MG TABLET PO SCH (08:50)
[2019-10-20] MEDS: PANTOPRAZOLE 40 MG TABLET PO SCH (08:50)
[2019-10-20] MEDS: MULTIVITAMIN (CENTRUM) TABLET PO SCH (08:50)
[2019-10-20] MEDS: BRIMONIDINE/TIMOLOL OPH SOLN 5 ML BOTTLE BOTH EYES SCH ×2 (08:51→22:20)
[2019-10-20] MEDS: DEXTROMETHORPHAN ER 6 MG/ML 90 ML/BOTTLE PO PRN (09:22)
[2019-10-20] MEDS: SODIUM CHLORIDE 0.45% 1,000 ML IV SCH (13:02)
[2019-10-20] MEDS: BENZONATATE 100 MG CAPSULE PO PRN ×2 (14:01→21:57)
[2019-10-20] MEDS: ALBUTEROL/IPRATROPIUM 3 ML NEB RESP TX PRN (19:53)
[2019-10-20] MEDS: ENOXAPARIN 40 MG/0.4 ML SYRINGE SUBCUT SCH (21:55)
[2019-10-20] MEDS: AZITHROMYCIN INJ 500 MG in SODIUM CHLORIDE 0.9% 250 ML IV SCH (21:56)
[2019-10-20] MEDS: BIMATOPROST 0.01% OPH SOLN 2.5 ML BOTTLE BOTH EYES SCH (22:20)
[2019-10-21] MEDS: MEROPENEM 500 MG in SODIUM CHLORIDE 0.9% 100 ML IV SCH ×3 (01:06→18:11)
[2019-10-21] MEDS ORDERED: ZINC OXIDE PASTE 113 GM TUBE TOP PRN (04:24)
[2019-10-21] MEDS: LEVOTHYROXINE 100 MCG TABLET PO SCH (05:14)
[2019-10-21] MEDS: methylPREDNISolone SOD SUC 40 MG/1 ML VIAL IV SCH ×3 (05:14→21:19)
[2019-10-21 05:30] LABS: Basophils % 0.2 % (0.0-0.8); Hematocrit 39.6 VOL% (35.7-47.0); Hemoglobin 12.7 GM/DL (12.0-16.0); Immature Granulocytes % 0.9 %; Immature Granulocytes Absolute 0.09 #; Lymphocytes # 1.3 10*3/uL (1.4-4.0); Lymphocytes % 12.2 % (21.3-54.2); Mean Corpuscular HGB Conc 32.1 GM/DL (32-36); Mean Platelet Volume 9.8 FL (9.6-12.0); Monocytes % 1.9 % (1.7-12.7); Neutrophils % 84.8 % (38.7-73.9); Platelet Count 342 T/CUMM (130-400); Red Blood Count 4.26 MC/CUMM (3.8-5.5); Red Cell Distribution Width 14.5 % (9.3-17.3); White Blood Count 10.4 T/CUMM (4-12)
[2019-10-21 06:06] LABS: Calcium 8.4 MG/DL (8.5-10.1); Hypochromasia 1+; Osmolality,Calculated 284.5 MOS/KG (273-304); Platelet Estimate Adequate
[2019-10-21] MEDS: BUDESONIDE 0.5 MG/2 ML NEB RESP TX SCH ×2 (07:40→19:28)
[2019-10-21] MEDS: DORNASE ALFA 2.5 MG/2.5 ML VIAL RESP TX SCH ×2 (07:44→19:28)
[2019-10-21] MEDS: METHENAMINE HIPPURATE 1 GM TABLET PO SCH ×2 (10:08→21:26)
[2019-10-21] MEDS: carvediloL 6.25 MG TABLET PO SCH ×2 (10:08→18:10)
[2019-10-21] MEDS: GLIMEPIRIDE 2 MG TABLET PO SCH ×2 (10:09→18:11)
[2019-10-21] MEDS: PANTOPRAZOLE 40 MG TABLET PO SCH (10:09)
[2019-10-21] MEDS: FUROSEMIDE 40 MG TABLET PO SCH (10:09)
[2019-10-21] MEDS: MULTIVITAMIN (CENTRUM) TABLET PO SCH (10:09)
[2019-10-21] MEDS: LOSARTAN 50 MG TABLET PO SCH (10:09)
[2019-10-21] MEDS: ASPIRIN CHEW 81 MG TABLET PO SCH (10:09)
[2019-10-21] MEDS: ISOSORBIDE MONONITRATE 30 MG TABLET PO SCH (10:10)
[2019-10-21] MEDS: BRIMONIDINE/TIMOLOL OPH SOLN 5 ML BOTTLE BOTH EYES SCH ×2 (10:15→21:17)
[2019-10-21] MEDS: INSULIN LISPRO 100 UNIT/ML SUBCUT SCH ×4 (10:17→21:06)
[2019-10-21] MEDS ORDERED: HYDROcodone/CHLORPHENIRAMINE ER 5 ML UDCUP PO PRN (14:34)
[2019-10-21] MEDS: BIMATOPROST 0.01% OPH SOLN 2.5 ML BOTTLE BOTH EYES SCH (21:17)
[2019-10-21] MEDS: ENOXAPARIN 40 MG/0.4 ML SYRINGE SUBCUT SCH (21:18)
[2019-10-21] MEDS: AZITHROMYCIN INJ 500 MG in SODIUM CHLORIDE 0.9% 250 ML IV SCH (21:27)
[2019-10-22] MEDS: MEROPENEM 500 MG in SODIUM CHLORIDE 0.9% 100 ML IV SCH (01:47)
[2019-10-22] MEDS: BENZONATATE 100 MG CAPSULE PO PRN (03:15)
[2019-10-22] MEDS: methylPREDNISolone SOD SUC 40 MG/1 ML VIAL IV SCH (04:40)
[2019-10-22] MEDS: LEVOTHYROXINE 100 MCG TABLET PO SCH (05:36)
[2019-10-22 07:46] VITALS: BP 153/52
[2019-10-22 17:21] LABS: QuantiFERON-Tb Gold Pl Negative (Negative); TB2 Ag Minus Result -0.01 IU/mL
[2019-10-25 15:41] LABS: Alternaria tenuis/alternat IgG 4.1 mcg/mL (<12.0); Aspergillus fumigatus IgG 8.4 mcg/mL (<46.0); Aureobasidium pullulans IgG 3.1 mcg/mL (<18.0); Micropolyspora faeni IgG <2.0 mcg/mL (<5.0); Penicillium Chrysogenum IgG 6.2 mcg/mL (<22.0); Phoma betae IgG 8.8 mcg/mL (<8.0); Thermoactinomyces vulgaris IgG <2.0 mcg/mL (<13.0)
== END 2019-10-22 09:05 | disposition home health service (06) | DRG 291 ==
LOC: N.EDINP 16:14 → N.ED 16:14 → N.2W 20:15 → N.2E 10-18 15:06
PROVIDERS: ADMIT Family Medicine; ATTEND Family Medicine

== ENCOUNTER 2019-12-08 16:44 | Inpatient (IN) ==
[2019-12-08] MEDS ORDERED: MORPHINE 4 MG/1 ML VIAL IV STA ×2 (17:16→18:31)
[2019-12-08] MEDS ORDERED: SODIUM CHLORIDE 0.9% 1,000 ML IV STA (17:16)
[2019-12-08 17:47] LABS: Basophils # 0.1 10*3/uL (0.0-0.2); Basophils % 0.4 % (0.0-0.8); Eosinophils % 0.2 % (0.00-10.9); Hematocrit 39.5 VOL% (35.7-47.0); Hemoglobin 12.7 GM/DL (12.0-16.0); Immature Granulocytes % 1.2 %; Lymphocytes # 1.4 10*3/uL (1.4-4.0); Lymphocytes % 5.2 % (21.3-54.2); Mean Corpuscular HGB Conc 32.2 GM/DL (32-36); Mean Corpuscular Volume 93.6 FL (87-102); Mean Platelet Volume 9.4 FL (9.6-12.0); Monocytes % 5.7 % (1.7-12.7); Neutrophils % 87.3 % (38.7-73.9); Platelet Count 330 T/CUMM (130-400); Red Blood Count 4.22 MC/CUMM (3.8-5.5); Red Cell Distribution Width 14.7 % (9.3-17.3)
[2019-12-08 17:55] LABS: PT Patient Result 10.7 SECS (9.6-12.2); Partial Thromboplastin Time 23.6 SECS (20.8-36.0)
[2019-12-08 18:31] LABS: Lymphocytes 2 % (20-55); Platelet Estimate Normal; Segmented Neutrophils 95 % (50-85); Total Cells Counted 100
[2019-12-08 18:38] LABS: Albumin 3.4 G/DL (3.4-5.0); Bilirubin,Total 0.5 MG/DL (0.2-1.0); Calcium 8.6 MG/DL (8.5-10.1); Osmolality,Calculated 279.1 MOS/KG (273-304); Total Protein 7.5 G/DL (6.4-8.3)
[2019-12-08] MEDS ORDERED: ONDANSETRON 4 MG/2 ML VIAL IV PRN (18:40)
[2019-12-08] MEDS ORDERED: ACETAMINOPHEN 325 MG TABLET PO PRN ×2 (18:40→21:53)
[2019-12-08] MEDS ORDERED: MORPHINE 4 MG/1 ML VIAL IV PRN (18:40)
[2019-12-08] MEDS ORDERED: DEXTROSE 5% NACL 0.45% 1,000 ML IV SCH (19:00)
[2019-12-08] MEDS ORDERED: DOCUSATE SODIUM 100 MG CAPSULE PO SCH (21:00)
[2019-12-08] MEDS: MORPHINE 4 MG/1 ML VIAL IV PRN (22:18)
[2019-12-09] MEDS: MORPHINE 4 MG/1 ML VIAL IV PRN ×4 (03:00→17:38)
[2019-12-09] MEDS: SODIUM CHLORIDE 0.9% 1,000 ML IV SCH ×2 (03:01→23:57)
[2019-12-09] MEDS ORDERED: NITROGLYCERIN SL 0.4 MG TABLET SL PRN (07:59)
[2019-12-09] MEDS ORDERED: Epinephrine [Epipen 2-Pak] 0.3 MG SUBCUT PRN (07:59)
[2019-12-09] MEDS ORDERED: ALBUTEROL/IPRATROPIUM 3 ML NEB RESP TX PRN (07:59)
[2019-12-09] MEDS ORDERED: NYSTATIN CREAM 15 GM TUBE TOP PRN (07:59)
[2019-12-09] MEDS ORDERED: DEXTROMETHORPHAN ER 6 MG/ML 90 ML/BOTTLE PO PRN (07:59)
[2019-12-09] MEDS ORDERED: CLINDAMYCIN INJ 600 MG in PREMIX 1 EACH IV ONE (08:27)
[2019-12-09] MEDS ORDERED: PANTOPRAZOLE 40 MG TABLET PO SCH (09:00)
[2019-12-09 09:22] LABS: Troponin I 0.059 NG/ML (0.00-0.045)
[2019-12-09] MEDS: LOSARTAN 25 MG TABLET PO SCH ×2 (09:31→21:21)
[2019-12-09] MEDS: carvediloL 6.25 MG TABLET PO SCH ×2 (09:31→21:18)
[2019-12-09] MEDS: ISOSORBIDE MONONITRATE 30 MG TABLET PO SCH (09:32)
[2019-12-09] MEDS ORDERED: DEXAMETHASONE 4 MG/1 ML VIAL ONE (10:22)
[2019-12-09] MEDS ORDERED: ROPIVACAINE 0.5% 30 ML VIAL ONE (10:22)
[2019-12-09] MEDS ORDERED: LIDOCAINE 1% 5 ML VIAL ONE (10:22)
[2019-12-09] MEDS ORDERED: BUPIVACAINE SPINAL 0.75% 2 ML AMP SPINAL ONE (10:33)
[2019-12-09] MEDS ORDERED: BACITRACIN OINT 0.9 GM PACK TOP ONE (10:39)
[2019-12-09] MEDS ORDERED: ePHEDrine 50 MG/ML AMP ONE (10:45)
[2019-12-09] MEDS ORDERED: flumazeniL 0.5 MG/5 ML VIAL IV ONE (10:45)
[2019-12-09] MEDS ORDERED: MAGNESIUM HYDROXIDE SUSP 30 ML UDCUP PO PRN (11:13)
[2019-12-09] MEDS ORDERED: MIDAZOLAM 2 MG/2 ML VIAL ONE (12:38)
[2019-12-09] MEDS ORDERED: propofoL 200 MG/20 ML VIAL IV ONE (12:39)
[2019-12-09] MEDS ORDERED: PHENYLEPHRINE 1 MG/10 ML SYRINGE IV ONE (12:39)
[2019-12-09] MEDS ORDERED: DEXMEDETOMIDINE 200 MCG/2 ML VIAL ONE (12:39)
[2019-12-09] MEDS: DOCUSATE SODIUM 100 MG CAPSULE PO SCH ×2 (14:49→21:18)
[2019-12-09] MEDS: METHENAMINE HIPPURATE 1 GM TABLET PO SCH ×2 (14:49→21:18)
[2019-12-09] MEDS: GLIMEPIRIDE 2 MG TABLET PO SCH ×2 (14:49→17:41)
[2019-12-09] MEDS: RANITIDINE 150 MG TABLET PO SCH ×2 (14:50→21:19)
[2019-12-09] MEDS: MULTIVITAMIN (CENTRUM) TABLET PO SCH (15:09)
[2019-12-09] MEDS: ASPIRIN CHEW 81 MG TABLET PO SCH (15:10)
[2019-12-09] MEDS: ASCORBIC ACID 500 MG TABLET PO SCH (15:10)
[2019-12-09] MEDS: PANTOPRAZOLE 40 MG TABLET PO SCH (15:10)
[2019-12-09] MEDS: LACTATED RINGERS 1,000 ML IV SCH (15:18)
[2019-12-09] MEDS: CLINDAMYCIN INJ 900 MG in PREMIX 1 EACH IV SCH ×2 (15:19→22:57)
[2019-12-09 15:22] LABS: Troponin I 0.041 NG/ML (0.00-0.045)
[2019-12-09] MEDS: FUROSEMIDE 40 MG TABLET PO SCH (15:22)
[2019-12-09] MEDS ORDERED: TUBERCULIN SKIN TEST 0.1 ML SYRINGE INTRADERM ONE (15:26)
[2019-12-09 17:52] LABS: Troponin I 0.028 NG/ML (0.00-0.045)
[2019-12-09] MEDS: LEVOTHYROXINE 100 MCG TABLET PO SCH (18:35)
[2019-12-09] MEDS: BIMATOPROST 0.01% OPH SOLN 2.5 ML BOTTLE BOTH EYES SCH (21:21)
[2019-12-10] MEDS: MORPHINE 4 MG/1 ML VIAL IV PRN ×2 (05:18→11:22)
[2019-12-10] MEDS: FONDAPARINUX 2.5 MG/0.5 ML SYRINGE SUBCUT SCH (05:22)
[2019-12-10] MEDS: LACTATED RINGERS 1,000 ML IV SCH (05:26)
[2019-12-10 05:35] LABS: Basophils % 0.1 % (0.0-0.8); Hematocrit 26.8 VOL% (35.7-47.0); Hemoglobin 8.7 GM/DL (12.0-16.0); Immature Granulocytes % 0.3 %; Immature Granulocytes Absolute 0.04 #; Lymphocytes # 0.9 10*3/uL (1.4-4.0); Lymphocytes % 7.6 % (21.3-54.2); Mean Corpuscular HGB Conc 32.5 GM/DL (32-36); Mean Corpuscular Volume 92.7 FL (87-102); Monocytes % 9.1 % (1.7-12.7); Neutrophils % 82.9 % (38.7-73.9); Platelet Count 241 T/CUMM (130-400); Red Blood Count 2.89 MC/CUMM (3.8-5.5); Red Cell Distribution Width 14.6 % (9.3-17.3); White Blood Count 11.6 T/CUMM (4-12)
[2019-12-10 06:03] LABS: Calcium 8.1 MG/DL (8.5-10.1); Osmolality,Calculated 274.8 MOS/KG (273-304)
[2019-12-10] MEDS: MULTIVITAMIN (CENTRUM) TABLET PO SCH (10:45)
[2019-12-10] MEDS: RANITIDINE 150 MG TABLET PO SCH ×2 (10:45→20:22)
[2019-12-10] MEDS: METHENAMINE HIPPURATE 1 GM TABLET PO SCH ×2 (10:45→20:22)
[2019-12-10] MEDS: carvediloL 6.25 MG TABLET PO SCH ×2 (10:46→20:22)
[2019-12-10] MEDS: ASPIRIN CHEW 81 MG TABLET PO SCH (10:46)
[2019-12-10] MEDS: ISOSORBIDE MONONITRATE 30 MG TABLET PO SCH (10:46)
[2019-12-10] MEDS: GLIMEPIRIDE 2 MG TABLET PO SCH ×2 (10:46→19:17)
[2019-12-10] MEDS: ASCORBIC ACID 500 MG TABLET PO SCH (10:46)
[2019-12-10] MEDS: PANTOPRAZOLE 40 MG TABLET PO SCH (10:46)
[2019-12-10] MEDS: LOSARTAN 25 MG TABLET PO SCH ×2 (10:46→20:22)
[2019-12-10] MEDS: DOCUSATE SODIUM 100 MG CAPSULE PO SCH ×2 (10:46→20:22)
[2019-12-10] MEDS: FUROSEMIDE 40 MG TABLET PO SCH (10:47)
[2019-12-10] MEDS: POLYETHYLENE GLYCOL POWDER 17 GM PACK PO PRN (11:02)
[2019-12-10] MEDS: CLINDAMYCIN INJ 600 MG in PREMIX 1 EACH IV SCH ×2 (11:15→19:29)
[2019-12-10] MEDS: LEVOTHYROXINE 100 MCG TABLET PO SCH (19:18)
[2019-12-10] MEDS ORDERED: CLINDAMYCIN INJ 600 MG in PREMIX 1 EACH IV SCH (20:00)
[2019-12-10] MEDS: BIMATOPROST 0.01% OPH SOLN 2.5 ML BOTTLE BOTH EYES SCH (20:34)
[2019-12-11] MEDS: FONDAPARINUX 2.5 MG/0.5 ML SYRINGE SUBCUT SCH (04:50)
[2019-12-11 05:31] LABS: Basophils # 0.1 10*3/uL (0.0-0.2); Basophils % 0.4 % (0.0-0.8); Eosinophils # 0.3 10*3/uL (0.0-0.87); Eosinophils % 2.7 % (0.00-10.9); Hematocrit 24.8 VOL% (35.7-47.0); Immature Granulocytes % 0.5 %; Immature Granulocytes Absolute 0.06 #; Lymphocytes # 2.3 10*3/uL (1.4-4.0); Lymphocytes % 18.7 % (21.3-54.2); Mean Corpuscular HGB Conc 32.3 GM/DL (32-36); Mean Corpuscular Volume 93.9 FL (87-102); Mean Platelet Volume 10.1 FL (9.6-12.0); Monocytes % 14.1 % (1.7-12.7); Neutrophils % 63.6 % (38.7-73.9); Platelet Count 255 T/CUMM (130-400); Red Blood Count 2.64 MC/CUMM (3.8-5.5); Red Cell Distribution Width 15.1 % (9.3-17.3)
[2019-12-11] MEDS: PANTOPRAZOLE 40 MG TABLET PO SCH (10:21)
[2019-12-11] MEDS: carvediloL 6.25 MG TABLET PO SCH ×2 (10:21→20:03)
[2019-12-11] MEDS: ASCORBIC ACID 500 MG TABLET PO SCH (10:21)
[2019-12-11] MEDS: DOCUSATE SODIUM 100 MG CAPSULE PO SCH ×2 (10:22→20:03)
[2019-12-11] MEDS: GLIMEPIRIDE 2 MG TABLET PO SCH ×2 (10:22→18:16)
[2019-12-11] MEDS: METHENAMINE HIPPURATE 1 GM TABLET PO SCH ×2 (10:22→20:03)
[2019-12-11] MEDS: MULTIVITAMIN (CENTRUM) TABLET PO SCH (10:23)
[2019-12-11] MEDS: ISOSORBIDE MONONITRATE 30 MG TABLET PO SCH (10:24)
[2019-12-11] MEDS: RANITIDINE 150 MG TABLET PO SCH ×2 (10:24→20:03)
[2019-12-11] MEDS: LOSARTAN 25 MG TABLET PO SCH ×2 (10:24→20:04)
[2019-12-11] MEDS: FUROSEMIDE 40 MG TABLET PO SCH (10:25)
[2019-12-11] MEDS: ASPIRIN CHEW 81 MG TABLET PO SCH (10:25)
[2019-12-11] MEDS: ONDANSETRON 4 MG/2 ML VIAL IV PRN ×2 (10:25→15:35)
[2019-12-11] MEDS: MORPHINE 4 MG/1 ML VIAL IV PRN ×2 (12:45→18:16)
[2019-12-11] MEDS: LEVOTHYROXINE 100 MCG TABLET PO SCH (18:16)
[2019-12-11] MEDS: BIMATOPROST 0.01% OPH SOLN 2.5 ML BOTTLE BOTH EYES SCH (20:04)
[2019-12-11 20:08] LABS: Apearance,Urine CLEAR (Clear); Bilirubin,Urine Negative (Negative); Blood, Urine Negative (Negative); Glucose,Urine (UA) Negative (Negative); Hyaline Casts,Urine 6 /LPF (0-3); Ketones,Urine Negative (Negative); Mucus,Urine Occasional /LPF (Occasional); Nitrite,Urine Negative (Negative); Protein,Urine Negative; RBC,Urine 1 /HPF (0-4); Squamous Epithelial Cell,Urine Occasional /HPF (0-10); Transitional Epi Cells,Urine Occasional /HPF (<1); Urine Color Yellow (Yellow); Urine Urobilinogen < 2.0 EU/DL (0.2-1.0); WBC,Urine 12 /HPF (0-6)
[2019-12-12] MEDS: ONDANSETRON 4 MG/2 ML VIAL IV PRN ×2 (04:56→18:22)
[2019-12-12] MEDS: FONDAPARINUX 2.5 MG/0.5 ML SYRINGE SUBCUT SCH (04:57)
[2019-12-12 06:04] LABS: Calcium 8.2 MG/DL (8.5-10.1)
[2019-12-12 06:11] LABS: Basophils # 0.1 10*3/uL (0.0-0.2); Basophils % 0.3 % (0.0-0.8); Eosinophils # 0.5 10*3/uL (0.0-0.87); Eosinophils % 3.6 % (0.00-10.9); Hematocrit 28.3 VOL% (35.7-47.0); Hemoglobin 8.9 GM/DL (12.0-16.0); Immature Granulocytes % 0.9 %; Immature Granulocytes Absolute 0.13 #; Lymphocytes # 2.1 10*3/uL (1.4-4.0); Lymphocytes % 13.7 % (21.3-54.2); Mean Corpuscular HGB Conc 31.4 GM/DL (32-36); Mean Corpuscular Volume 96.3 FL (87-102); Mean Platelet Volume 9.8 FL (9.6-12.0); Monocytes % 10.9 % (1.7-12.7); Neutrophils % 70.6 % (38.7-73.9); Platelet Count 295 T/CUMM (130-400); Red Blood Count 2.94 MC/CUMM (3.8-5.5); Red Cell Distribution Width 14.8 % (9.3-17.3)
[2019-12-12] MEDS: MORPHINE 4 MG/1 ML VIAL IV PRN ×2 (06:39→18:21)
[2019-12-12] MEDS: MULTIVITAMIN (CENTRUM) TABLET PO SCH (10:46)
[2019-12-12] MEDS: METHENAMINE HIPPURATE 1 GM TABLET PO SCH ×2 (10:46→21:08)
[2019-12-12] MEDS: GLIMEPIRIDE 2 MG TABLET PO SCH ×2 (10:46→18:21)
[2019-12-12] MEDS: carvediloL 6.25 MG TABLET PO SCH ×2 (10:46→20:52)
[2019-12-12] MEDS: ASPIRIN CHEW 81 MG TABLET PO SCH (10:46)
[2019-12-12] MEDS: LOSARTAN 25 MG TABLET PO SCH ×2 (10:46→20:52)
[2019-12-12] MEDS: DOCUSATE SODIUM 100 MG CAPSULE PO SCH ×2 (10:46→20:51)
[2019-12-12] MEDS: RANITIDINE 150 MG TABLET PO SCH ×2 (10:47→20:52)
[2019-12-12] MEDS: ASCORBIC ACID 500 MG TABLET PO SCH (10:47)
[2019-12-12] MEDS: FUROSEMIDE 40 MG TABLET PO SCH (10:47)
[2019-12-12] MEDS: PANTOPRAZOLE 40 MG TABLET PO SCH (10:47)
[2019-12-12] MEDS: ISOSORBIDE MONONITRATE 30 MG TABLET PO SCH (10:47)
[2019-12-12] MEDS: LEVOTHYROXINE 100 MCG TABLET PO SCH (18:21)
[2019-12-12] MEDS: BIMATOPROST 0.01% OPH SOLN 2.5 ML BOTTLE BOTH EYES SCH (21:09)
[2019-12-13] MEDS: FONDAPARINUX 2.5 MG/0.5 ML SYRINGE SUBCUT SCH (04:52)
[2019-12-13] MEDS: METHENAMINE HIPPURATE 1 GM TABLET PO SCH ×2 (09:09→21:21)
[2019-12-13] MEDS: RANITIDINE 150 MG TABLET PO SCH ×2 (09:10→21:22)
[2019-12-13] MEDS: MULTIVITAMIN (CENTRUM) TABLET PO SCH (09:10)
[2019-12-13] MEDS: GLIMEPIRIDE 2 MG TABLET PO SCH ×2 (09:10→16:39)
[2019-12-13] MEDS: FUROSEMIDE 40 MG TABLET PO SCH (09:11)
[2019-12-13] MEDS: ASCORBIC ACID 500 MG TABLET PO SCH (09:11)
[2019-12-13] MEDS: ASPIRIN CHEW 81 MG TABLET PO SCH (09:11)
[2019-12-13] MEDS: PANTOPRAZOLE 40 MG TABLET PO SCH (09:11)
[2019-12-13] MEDS: LOSARTAN 25 MG TABLET PO SCH ×2 (09:11→21:22)
[2019-12-13] MEDS: DOCUSATE SODIUM 100 MG CAPSULE PO SCH ×2 (09:11→21:22)
[2019-12-13] MEDS: carvediloL 6.25 MG TABLET PO SCH ×2 (09:12→21:22)
[2019-12-13] MEDS: ISOSORBIDE MONONITRATE 30 MG TABLET PO SCH (13:33)
[2019-12-13] MEDS: ONDANSETRON 4 MG/2 ML VIAL IV PRN (13:43)
[2019-12-13] MEDS: LEVOTHYROXINE 100 MCG TABLET PO SCH (18:53)
[2019-12-13] MEDS: BIMATOPROST 0.01% OPH SOLN 2.5 ML BOTTLE BOTH EYES SCH (21:23)
[2019-12-14] MEDS: FONDAPARINUX 2.5 MG/0.5 ML SYRINGE SUBCUT SCH (05:49)
[2019-12-14] MEDS ORDERED: MEROPENEM 500 MG in SODIUM CHLORIDE 0.9% 100 ML IV SCH (07:00)
[2019-12-14 08:31] VITALS: BP 139/41
[2019-12-14] MEDS: PANTOPRAZOLE 40 MG TABLET PO SCH (08:48)
[2019-12-14] MEDS: RANITIDINE 150 MG TABLET PO SCH (08:48)
[2019-12-14] MEDS: MULTIVITAMIN (CENTRUM) TABLET PO SCH (08:48)
[2019-12-14] MEDS: METHENAMINE HIPPURATE 1 GM TABLET PO SCH (08:48)
[2019-12-14] MEDS: LOSARTAN 25 MG TABLET PO SCH (08:48)
[2019-12-14] MEDS: GLIMEPIRIDE 2 MG TABLET PO SCH (08:49)
[2019-12-14] MEDS: ASPIRIN CHEW 81 MG TABLET PO SCH (08:49)
[2019-12-14] MEDS: ISOSORBIDE MONONITRATE 30 MG TABLET PO SCH (08:49)
[2019-12-14] MEDS: ASCORBIC ACID 500 MG TABLET PO SCH (08:49)
[2019-12-14] MEDS: FUROSEMIDE 40 MG TABLET PO SCH (08:49)
[2019-12-14] MEDS: carvediloL 6.25 MG TABLET PO SCH (08:49)
[2019-12-14] MEDS: DOCUSATE SODIUM 100 MG CAPSULE PO SCH (08:49)
[2019-12-14] MEDS ORDERED: NITROFURANTOIN MACRO/MONO 100 MG CAPSULE PO SCH (09:00)
[2019-12-14] MEDS: POLYETHYLENE GLYCOL POWDER 17 GM PACK PO PRN (10:20)
== END 2019-12-14 11:50 | disposition swing bed (61) | DRG 481 ==
LOC: EDBD → EDUNIT# → N.ED 16:44 → N.EDINP 18:49 → N.3E 19:53
PROVIDERS: ADMIT Family Medicine; ATTEND Family Medicine

== ENCOUNTER 2020-04-11 04:02 | Inpatient (IN) ==
[2020-04-11] MEDS ORDERED: SODIUM CHLORIDE 0.9% 1,000 ML IV STA (04:45)
[2020-04-11 05:27] LABS: Basophils # 0.1 10*3/uL (0.0-0.2); Basophils % 0.4 % (0.0-0.8); Eosinophils # 0.2 10*3/uL (0.0-0.87); Eosinophils % 1.3 % (0.00-10.9); Hematocrit 50.7 VOL% (35.7-47.0); Hemoglobin 16.4 GM/DL (12.0-16.0); Immature Granulocytes % 0.6 %; Lymphocytes # 0.9 10*3/uL (1.4-4.0); Mean Corpuscular HGB Conc 32.3 GM/DL (32-36); Mean Corpuscular Volume 98.3 FL (87-102); Mean Platelet Volume 9.8 FL (9.6-12.0); Monocytes % 5.4 % (1.7-12.7); Neutrophils % 86.3 % (38.7-73.9); Platelet Count 319 T/CUMM (130-400); Red Blood Count 5.16 MC/CUMM (3.8-5.5); Red Cell Distribution Width 14.1 % (9.3-17.3); White Blood Count 15.6 T/CUMM (4-12)
[2020-04-11] MEDS ORDERED: hydrALAZINE 20 MG/1 ML VIAL IV STA (05:45)
[2020-04-11] MEDS ORDERED: MORPHINE 4 MG/1 ML VIAL IV STA (05:45)
[2020-04-11] MEDS ORDERED: ONDANSETRON 4 MG/2 ML VIAL IV STA (05:45)
[2020-04-11 05:48] LABS: Albumin 3.5 G/DL (3.4-5.0); Bilirubin,Total 0.6 MG/DL (0.2-1.0); Calcium 9.2 MG/DL (8.5-10.1); Osmolality,Calculated 277.2 MOS/KG (273-304); Total Protein 8.4 G/DL (6.4-8.3)
[2020-04-11 07:07] LABS: Apearance,Urine CLEAR (Clear); Bilirubin,Urine Negative (Negative); Blood, Urine Moderate mg/dL (Negative); Glucose,Urine (UA) Negative (Negative); Hyaline Casts,Urine 4 /LPF (0-3); Ketones,Urine Negative (Negative); Mucus,Urine Occasional /LPF (Occasional); Nitrite,Urine Negative (Negative); Protein,Urine Negative; RBC,Urine 3 /HPF (0-4); Squamous Epithelial Cell,Urine Occasional /HPF (0-10); Urine Color Yellow (Yellow); Urine Specific Gravity 1.027 (1.001-1.035); Urine Urobilinogen < 2.0 EU/DL (0.2-1.0); WBC,Urine 3 /HPF (0-6)
[2020-04-11] MEDS ORDERED: metroNIDAZOLE INJ 500 MG in PREMIX 1 EACH IV STA (08:02)
[2020-04-11] MEDS ORDERED: LEVOFLOXACIN INJ 500 MG in PREMIX 1 EACH IV STA (08:02)
[2020-04-11] MEDS: ONDANSETRON 4 MG/2 ML VIAL IV PRN (09:12)
[2020-04-11] MEDS: PANTOPRAZOLE 40 MG TABLET PO SCH (09:12)
[2020-04-11] MEDS: metroNIDAZOLE INJ 500 MG in PREMIX 1 EACH IV SCH ×3 (09:54→22:45)
[2020-04-11] MEDS: LEVOFLOXACIN INJ 500 MG in PREMIX 1 EACH IV SCH (09:55)
[2020-04-11] MEDS: SODIUM CHLORIDE 0.9% 1,000 ML IV SCH ×2 (11:00→16:38)
[2020-04-11] MEDS ORDERED: ALBUTEROL/IPRATROPIUM 3 ML NEB RESP TX PRN (17:09)
[2020-04-11] MEDS ORDERED: POLYETHYLENE GLYCOL POWDER 17 GM PACK PO PRN (17:09)
[2020-04-11] MEDS ORDERED: Epinephrine [Epipen 2-Pak] 0.3 MG SUBCUT PRN (17:09)
[2020-04-11] MEDS ORDERED: DEXTROMETHORPHAN ER 6 MG/ML 90 ML/BOTTLE PO PRN (17:09)
[2020-04-11] MEDS ORDERED: NYSTATIN CREAM 15 GM TUBE TOP PRN (17:09)
[2020-04-11] MEDS ORDERED: DOCUSATE CALCIUM 240 MG CAPSULE PO PRN ×2 (17:09→18:00)
[2020-04-11] MEDS ORDERED: NITROGLYCERIN SL 0.4 MG TABLET SL PRN (17:09)
[2020-04-11] MEDS ORDERED: ALBUTEROL 2.5 MG/3 ML NEB RESP TX PRN (19:00)
[2020-04-11] MEDS: BIMATOPROST 0.01% OPH SOLN 2.5 ML BOTTLE BOTH EYES SCH (22:19)
[2020-04-11] MEDS: BRIMONIDINE/TIMOLOL OPH SOLN 5 ML BOTTLE BOTH EYES SCH (22:22)
[2020-04-11] MEDS: carvediloL 6.25 MG TABLET PO SCH (22:23)
[2020-04-11] MEDS: FAMOTIDINE 20 MG TABLET PO SCH (22:23)
[2020-04-11] MEDS: METHENAMINE HIPPURATE 1 GM TABLET PO SCH (22:23)
[2020-04-11] MEDS: LOSARTAN 25 MG TABLET PO SCH (22:23)
[2020-04-12] MEDS: HYDROmorphone 2 MG TABLET PO PRN ×2 (00:35→17:53)
[2020-04-12] MEDS: SODIUM CHLORIDE 0.9% 1,000 ML IV SCH ×2 (03:50→08:39)
[2020-04-12] MEDS: metroNIDAZOLE INJ 500 MG in PREMIX 1 EACH IV SCH ×3 (03:51→15:11)
[2020-04-12] MEDS: LEVOTHYROXINE 100 MCG TABLET PO SCH (06:04)
[2020-04-12 06:59] LABS: Basophils # 0.1 10*3/uL (0.0-0.2); Basophils % 0.3 % (0.0-0.8); Eosinophils # 0.1 10*3/uL (0.0-0.87); Eosinophils % 0.3 % (0.00-10.9); Hematocrit 39.9 VOL% (35.7-47.0); Immature Granulocytes % 0.6 %; Immature Granulocytes Absolute 0.09 #; Lymphocytes # 1.5 10*3/uL (1.4-4.0); Lymphocytes % 9.9 % (21.3-54.2); Mean Corpuscular HGB Conc 32.1 GM/DL (32-36); Mean Corpuscular Volume 97.8 FL (87-102); Mean Platelet Volume 9.6 FL (9.6-12.0); Monocytes % 9.2 % (1.7-12.7); Neutrophils % 79.7 % (38.7-73.9); Platelet Count 264 T/CUMM (130-400); Red Blood Count 4.08 MC/CUMM (3.8-5.5); Red Cell Distribution Width 14.4 % (9.3-17.3)
[2020-04-12 07:00] LABS: Hemoglobin 12.8 GM/DL (12.0-16.0)
[2020-04-12 07:21] LABS: Osmolality,Calculated 277.7 MOS/KG (273-304)
[2020-04-12] MEDS: GLIMEPIRIDE 2 MG TABLET PO SCH ×2 (08:20→16:33)
[2020-04-12] MEDS: carvediloL 6.25 MG TABLET PO SCH (08:21)
[2020-04-12] MEDS: METHENAMINE HIPPURATE 1 GM TABLET PO SCH (08:22)
[2020-04-12] MEDS: LOSARTAN 25 MG TABLET PO SCH (08:22)
[2020-04-12] MEDS: FAMOTIDINE 20 MG TABLET PO SCH (08:23)
[2020-04-12] MEDS: BRIMONIDINE/TIMOLOL OPH SOLN 5 ML BOTTLE BOTH EYES SCH ×2 (09:12→21:19)
[2020-04-12] MEDS: LEVOFLOXACIN INJ 500 MG in PREMIX 1 EACH IV SCH (09:13)
[2020-04-12] MEDS: MULTIVITAMIN (CENTRUM) TABLET PO SCH (09:54)
[2020-04-12] MEDS: ASCORBIC ACID 500 MG TABLET PO SCH (09:54)
[2020-04-12] MEDS: PANTOPRAZOLE 40 MG TABLET PO SCH (09:54)
[2020-04-12] MEDS: ASPIRIN CHEW 81 MG TABLET PO SCH (09:55)
[2020-04-12] MEDS: FUROSEMIDE 40 MG TABLET PO SCH (09:55)
[2020-04-12] MEDS: ISOSORBIDE MONONITRATE 30 MG TABLET PO SCH (09:55)
[2020-04-12] MEDS: ONDANSETRON 4 MG/2 ML VIAL IV PRN (16:41)
[2020-04-12] MEDS: BIMATOPROST 0.01% OPH SOLN 2.5 ML BOTTLE BOTH EYES SCH (21:19)
[2020-04-13] MEDS: carvediloL 6.25 MG TABLET PO SCH ×3 (00:53→21:44)
[2020-04-13] MEDS: SODIUM CHLORIDE 0.9% 1,000 ML IV SCH (00:53)
[2020-04-13] MEDS: LOSARTAN 25 MG TABLET PO SCH ×3 (00:53→21:44)
[2020-04-13] MEDS: FAMOTIDINE 20 MG TABLET PO SCH ×3 (00:54→21:44)
[2020-04-13] MEDS: metroNIDAZOLE INJ 500 MG in PREMIX 1 EACH IV SCH ×5 (00:54→21:53)
[2020-04-13] MEDS: METHENAMINE HIPPURATE 1 GM TABLET PO SCH ×3 (00:54→21:44)
[2020-04-13] MEDS: HYDROmorphone 2 MG TABLET PO PRN (00:55)
[2020-04-13 06:01] LABS: Basophils % 0.3 % (0.0-0.8); Eosinophils # 0.2 10*3/uL (0.0-0.87); Eosinophils % 1.4 % (0.00-10.9); Hematocrit 37.4 VOL% (35.7-47.0); Hemoglobin 11.7 GM/DL (12.0-16.0); Immature Granulocytes % 0.5 %; Immature Granulocytes Absolute 0.06 #; Lymphocytes # 1.3 10*3/uL (1.4-4.0); Lymphocytes % 10.3 % (21.3-54.2); Mean Corpuscular HGB Conc 31.3 GM/DL (32-36); Mean Corpuscular Volume 99.7 FL (87-102); Mean Platelet Volume 9.5 FL (9.6-12.0); Monocytes % 8.6 % (1.7-12.7); Neutrophils % 78.9 % (38.7-73.9); Platelet Count 236 T/CUMM (130-400); Red Blood Count 3.75 MC/CUMM (3.8-5.5); Red Cell Distribution Width 14.6 % (9.3-17.3); White Blood Count 12.4 T/CUMM (4-12)
[2020-04-13] MEDS: LEVOTHYROXINE 100 MCG TABLET PO SCH (06:02)
[2020-04-13 06:19] LABS: Calcium 7.9 MG/DL (8.5-10.1); Osmolality,Calculated 275.7 MOS/KG (273-304)
[2020-04-13] MEDS ORDERED: POTASSIUM CHLORIDE RIDER 10 MEQ in PREMIX 1 EACH IV PRN (08:10)
[2020-04-13] MEDS: MULTIVITAMIN (CENTRUM) TABLET PO SCH (08:27)
[2020-04-13] MEDS: ASPIRIN CHEW 81 MG TABLET PO SCH (08:27)
[2020-04-13] MEDS: ISOSORBIDE MONONITRATE 30 MG TABLET PO SCH (08:27)
[2020-04-13] MEDS: FUROSEMIDE 40 MG TABLET PO SCH (08:27)
[2020-04-13] MEDS: GLIMEPIRIDE 2 MG TABLET PO SCH ×2 (08:27→20:27)
[2020-04-13] MEDS: ASCORBIC ACID 500 MG TABLET PO SCH (08:28)
[2020-04-13] MEDS: PANTOPRAZOLE 40 MG TABLET PO SCH (08:28)
[2020-04-13] MEDS: MORPHINE 4 MG/1 ML VIAL IV PRN (08:35)
[2020-04-13] MEDS: SODIUM CHLOR 0.9% KCL 20 MEQ 20 MEQ/1,000 ML BAG IV SCH (08:40)
[2020-04-13] MEDS: BRIMONIDINE/TIMOLOL OPH SOLN 5 ML BOTTLE BOTH EYES SCH (08:40)
[2020-04-13] MEDS: LEVOFLOXACIN INJ 500 MG in PREMIX 1 EACH IV SCH (08:41)
[2020-04-13] MEDS ORDERED: ENOXAPARIN 40 MG/0.4 ML SYRINGE SUBCUT SCH (09:00)
[2020-04-13] MEDS: ONDANSETRON 4 MG/2 ML VIAL IV PRN (12:21)
[2020-04-14] MEDS: BIMATOPROST 0.01% OPH SOLN 2.5 ML BOTTLE BOTH EYES SCH ×2 (03:14→21:36)
[2020-04-14] MEDS: SODIUM CHLOR 0.9% KCL 20 MEQ 20 MEQ/1,000 ML BAG IV SCH ×3 (03:14→16:28)
[2020-04-14] MEDS: BRIMONIDINE/TIMOLOL OPH SOLN 5 ML BOTTLE BOTH EYES SCH ×3 (03:14→21:37)
[2020-04-14] MEDS: SODIUM CHLORIDE 0.9% 1,000 ML IV SCH (03:19)
[2020-04-14] MEDS: metroNIDAZOLE INJ 500 MG in PREMIX 1 EACH IV SCH ×4 (03:53→21:39)
[2020-04-14 05:48] LABS: Basophils # 0.1 10*3/uL (0.0-0.2); Basophils % 0.5 % (0.0-0.8); Eosinophils # 0.2 10*3/uL (0.0-0.87); Eosinophils % 1.4 % (0.00-10.9); Hematocrit 40.4 VOL% (35.7-47.0); Hemoglobin 12.8 GM/DL (12.0-16.0); Immature Granulocytes % 0.5 %; Immature Granulocytes Absolute 0.05 #; Lymphocytes # 1.2 10*3/uL (1.4-4.0); Lymphocytes % 11.4 % (21.3-54.2); Mean Corpuscular HGB Conc 31.7 GM/DL (32-36); Mean Corpuscular Volume 97.8 FL (87-102); Mean Platelet Volume 9.5 FL (9.6-12.0); Monocytes % 9.6 % (1.7-12.7); Neutrophils % 76.6 % (38.7-73.9); Platelet Count 254 T/CUMM (130-400); Red Blood Count 4.13 MC/CUMM (3.8-5.5); Red Cell Distribution Width 14.6 % (9.3-17.3); White Blood Count 10.8 T/CUMM (4-12)
[2020-04-14 06:15] LABS: Calcium 8.1 MG/DL (8.5-10.1); Osmolality,Calculated 283.1 MOS/KG (273-304)
[2020-04-14] MEDS: ONDANSETRON 4 MG/2 ML VIAL IV PRN ×2 (06:28→17:25)
[2020-04-14] MEDS: LEVOTHYROXINE 100 MCG TABLET PO SCH (07:20)
[2020-04-14] MEDS: LEVOFLOXACIN INJ 500 MG in PREMIX 1 EACH IV SCH (08:27)
[2020-04-14] MEDS: ASPIRIN CHEW 81 MG TABLET PO SCH (09:10)
[2020-04-14] MEDS: GLIMEPIRIDE 2 MG TABLET PO SCH ×2 (09:10→16:31)
[2020-04-14] MEDS: carvediloL 6.25 MG TABLET PO SCH ×2 (09:11→21:37)
[2020-04-14] MEDS: METHENAMINE HIPPURATE 1 GM TABLET PO SCH ×2 (09:11→21:37)
[2020-04-14] MEDS: LOSARTAN 25 MG TABLET PO SCH ×2 (09:11→21:37)
[2020-04-14] MEDS: MULTIVITAMIN (CENTRUM) TABLET PO SCH (09:11)
[2020-04-14] MEDS: ISOSORBIDE MONONITRATE 30 MG TABLET PO SCH (09:11)
[2020-04-14] MEDS: ASCORBIC ACID 500 MG TABLET PO SCH (09:12)
[2020-04-14] MEDS: PANTOPRAZOLE 40 MG TABLET PO SCH (09:12)
[2020-04-14] MEDS: FUROSEMIDE 40 MG TABLET PO SCH (09:12)
[2020-04-14] MEDS: FAMOTIDINE 20 MG TABLET PO SCH ×2 (09:12→21:37)
[2020-04-14] MEDS ORDERED: ROPIVACAINE 0.5% 30 ML VIAL ONE (10:15)
[2020-04-14] MEDS ORDERED: TISSUE ADHESIVE 1 EACH APPLICATOR TOP ONE (11:26)
[2020-04-14] MEDS ORDERED: ETOMIDATE 40 MG/20 ML VIAL IV ONE (11:41)
[2020-04-14] MEDS ORDERED: PHENYLEPHRINE 1 MG/10 ML SYRINGE IV ONE (11:41)
[2020-04-14] MEDS ORDERED: propofoL 200 MG/20 ML VIAL IV ONE (11:41)
[2020-04-14] MEDS ORDERED: MEPERIDINE 25 MG/1 ML VIAL IV PRN (11:47)
[2020-04-14] MEDS ORDERED: diphenhydrAMINE 50 MG/1 ML VIAL IV PRN (11:47)
[2020-04-14] MEDS ORDERED: ONDANSETRON 4 MG/2 ML VIAL IV PRN (11:47)
[2020-04-14] MEDS: MORPHINE 4 MG/1 ML VIAL IV PRN ×2 (14:00→21:39)
[2020-04-15] MEDS: SODIUM CHLOR 0.9% KCL 20 MEQ 20 MEQ/1,000 ML BAG IV SCH ×2 (02:16→17:19)
[2020-04-15] MEDS: ONDANSETRON 4 MG/2 ML VIAL IV PRN ×3 (04:16→21:51)
[2020-04-15] MEDS: metroNIDAZOLE INJ 500 MG in PREMIX 1 EACH IV SCH ×4 (04:17→23:59)
[2020-04-15] MEDS: MORPHINE 4 MG/1 ML VIAL IV PRN (04:17)
[2020-04-15] MEDS: LEVOTHYROXINE 100 MCG TABLET PO SCH (07:25)
[2020-04-15] MEDS: LEVOFLOXACIN INJ 500 MG in PREMIX 1 EACH IV SCH (09:15)
[2020-04-15] MEDS ORDERED: hydrOXYzine HCL 25 MG/1 ML VIAL IM PRN (10:59)
[2020-04-15] MEDS: MULTIVITAMIN (CENTRUM) TABLET PO SCH (11:06)
[2020-04-15] MEDS: GLIMEPIRIDE 2 MG TABLET PO SCH ×2 (11:06→17:16)
[2020-04-15] MEDS: ASPIRIN CHEW 81 MG TABLET PO SCH (11:06)
[2020-04-15] MEDS: ISOSORBIDE MONONITRATE 30 MG TABLET PO SCH (11:07)
[2020-04-15] MEDS: BRIMONIDINE/TIMOLOL OPH SOLN 5 ML BOTTLE BOTH EYES SCH ×2 (11:07→21:46)
[2020-04-15] MEDS: METHENAMINE HIPPURATE 1 GM TABLET PO SCH ×2 (11:07→23:33)
[2020-04-15] MEDS: FAMOTIDINE 20 MG TABLET PO SCH ×2 (11:07→21:46)
[2020-04-15] MEDS: carvediloL 6.25 MG TABLET PO SCH ×2 (11:07→21:45)
[2020-04-15] MEDS: LOSARTAN 25 MG TABLET PO SCH ×2 (11:07→21:45)
[2020-04-15] MEDS: FUROSEMIDE 40 MG TABLET PO SCH (11:07)
[2020-04-15] MEDS: ASCORBIC ACID 500 MG TABLET PO SCH (11:08)
[2020-04-15] MEDS: PANTOPRAZOLE 40 MG TABLET PO SCH (11:08)
[2020-04-15] MEDS: BIMATOPROST 0.01% OPH SOLN 2.5 ML BOTTLE BOTH EYES SCH (21:46)
[2020-04-16 06:08] LABS: Basophils # 0.1 10*3/uL (0.0-0.2); Basophils % 0.5 % (0.0-0.8); Eosinophils # 0.2 10*3/uL (0.0-0.87); Eosinophils % 1.3 % (0.00-10.9); Hematocrit 39.5 VOL% (35.7-47.0); Hemoglobin 12.8 GM/DL (12.0-16.0); Immature Granulocytes % 0.4 %; Immature Granulocytes Absolute 0.05 #; Lymphocytes % 9.3 % (21.3-54.2); Mean Corpuscular HGB Conc 32.4 GM/DL (32-36); Mean Corpuscular Volume 96.1 FL (87-102); Mean Platelet Volume 9.6 FL (9.6-12.0); Monocytes % 11.3 % (1.7-12.7); Neutrophils % 77.2 % (38.7-73.9); Platelet Count 239 T/CUMM (130-400); Red Blood Count 4.11 MC/CUMM (3.8-5.5); Red Cell Distribution Width 14.6 % (9.3-17.3); White Blood Count 11.1 T/CUMM (4-12)
[2020-04-16 06:28] LABS: Osmolality,Calculated 278.4 MOS/KG (273-304)
[2020-04-16] MEDS: metroNIDAZOLE INJ 500 MG in PREMIX 1 EACH IV SCH ×4 (06:30→23:57)
[2020-04-16] MEDS: LEVOTHYROXINE 100 MCG TABLET PO SCH (08:00)
[2020-04-16] MEDS: ASCORBIC ACID 500 MG TABLET PO SCH (09:32)
[2020-04-16] MEDS: METHENAMINE HIPPURATE 1 GM TABLET PO SCH (09:32)
[2020-04-16] MEDS: GLIMEPIRIDE 2 MG TABLET PO SCH ×2 (09:32→16:40)
[2020-04-16] MEDS: ONDANSETRON 4 MG/2 ML VIAL IV PRN ×2 (09:32→16:40)
[2020-04-16] MEDS: LOSARTAN 25 MG TABLET PO SCH (09:32)
[2020-04-16] MEDS: carvediloL 6.25 MG TABLET PO SCH (09:32)
[2020-04-16] MEDS: FAMOTIDINE 20 MG TABLET PO SCH (09:32)
[2020-04-16] MEDS: PANTOPRAZOLE 40 MG TABLET PO SCH (09:32)
[2020-04-16] MEDS: MULTIVITAMIN (CENTRUM) TABLET PO SCH (09:32)
[2020-04-16] MEDS: ISOSORBIDE MONONITRATE 30 MG TABLET PO SCH (09:32)
[2020-04-16] MEDS: BRIMONIDINE/TIMOLOL OPH SOLN 5 ML BOTTLE BOTH EYES SCH (09:32)
[2020-04-16] MEDS: ASPIRIN CHEW 81 MG TABLET PO SCH (09:32)
[2020-04-16] MEDS: FUROSEMIDE 40 MG TABLET PO SCH (09:32)
[2020-04-16] MEDS: LEVOFLOXACIN INJ 500 MG in PREMIX 1 EACH IV SCH (09:32)
[2020-04-16] MEDS ORDERED: LINACLOTIDE 145 MCG CAPSULE PO ONE (09:43)
[2020-04-16] MEDS ORDERED: MINERAL OIL ENEMA 133 ML BOTTLE RECTAL ONE (11:05)
[2020-04-16] MEDS: LORazepam 1 MG TABLET PO PRN (15:30)
[2020-04-17] MEDS: BRIMONIDINE/TIMOLOL OPH SOLN 5 ML BOTTLE BOTH EYES SCH ×3 (00:52→21:42)
[2020-04-17] MEDS: BIMATOPROST 0.01% OPH SOLN 2.5 ML BOTTLE BOTH EYES SCH ×2 (00:53→21:42)
[2020-04-17] MEDS: LOSARTAN 25 MG TABLET PO SCH ×3 (00:53→21:42)
[2020-04-17] MEDS: carvediloL 6.25 MG TABLET PO SCH ×3 (00:53→21:42)
[2020-04-17] MEDS: METHENAMINE HIPPURATE 1 GM TABLET PO SCH ×3 (00:53→21:42)
[2020-04-17] MEDS: FAMOTIDINE 20 MG TABLET PO SCH ×3 (00:53→21:42)
[2020-04-17] MEDS: SODIUM CHLOR 0.9% KCL 20 MEQ 20 MEQ/1,000 ML BAG IV SCH ×3 (00:55→21:42)
[2020-04-17] MEDS: LORazepam 1 MG TABLET PO PRN (02:55)
[2020-04-17] MEDS: ACETAMINOPHEN 325 MG TABLET PO PRN (02:55)
[2020-04-17] MEDS: metroNIDAZOLE INJ 500 MG in PREMIX 1 EACH IV SCH ×4 (05:27→22:44)
[2020-04-17] MEDS: MORPHINE 4 MG/1 ML VIAL IV PRN (06:33)
[2020-04-17] MEDS: LEVOTHYROXINE 100 MCG TABLET PO SCH (06:37)
[2020-04-17] MEDS: LEVOFLOXACIN INJ 500 MG in PREMIX 1 EACH IV SCH (09:57)
[2020-04-17] MEDS: GLIMEPIRIDE 2 MG TABLET PO SCH ×2 (10:04→16:23)
[2020-04-17] MEDS: ISOSORBIDE MONONITRATE 30 MG TABLET PO SCH (10:05)
[2020-04-17] MEDS: ASCORBIC ACID 500 MG TABLET PO SCH (10:05)
[2020-04-17] MEDS: MULTIVITAMIN (CENTRUM) TABLET PO SCH (10:06)
[2020-04-17] MEDS: FUROSEMIDE 40 MG TABLET PO SCH (10:06)
[2020-04-17] MEDS: PANTOPRAZOLE 40 MG TABLET PO SCH (10:06)
[2020-04-17] MEDS: ASPIRIN CHEW 81 MG TABLET PO SCH (10:06)
[2020-04-17] MEDS ORDERED: MAGNESIUM HYDROXIDE SUSP 30 ML UDCUP PO ONE (13:19)
[2020-04-18] MEDS: LEVOTHYROXINE 100 MCG TABLET PO SCH (06:05)
[2020-04-18] MEDS: metroNIDAZOLE INJ 500 MG in PREMIX 1 EACH IV SCH ×3 (06:10→16:15)
[2020-04-18] MEDS: ONDANSETRON 4 MG/2 ML VIAL IV PRN (08:33)
[2020-04-18] MEDS: LEVOFLOXACIN INJ 500 MG in PREMIX 1 EACH IV SCH (08:34)
[2020-04-18] MEDS: ISOSORBIDE MONONITRATE 30 MG TABLET PO SCH (08:36)
[2020-04-18] MEDS: carvediloL 6.25 MG TABLET PO SCH ×2 (08:36→21:31)
[2020-04-18] MEDS: FUROSEMIDE 40 MG TABLET PO SCH (08:36)
[2020-04-18] MEDS: MULTIVITAMIN (CENTRUM) TABLET PO SCH (08:37)
[2020-04-18] MEDS: LOSARTAN 25 MG TABLET PO SCH ×2 (08:37→21:31)
[2020-04-18] MEDS: PANTOPRAZOLE 40 MG TABLET PO SCH (08:37)
[2020-04-18] MEDS: ASPIRIN CHEW 81 MG TABLET PO SCH (08:37)
[2020-04-18] MEDS: ASCORBIC ACID 500 MG TABLET PO SCH (08:37)
[2020-04-18] MEDS: METHENAMINE HIPPURATE 1 GM TABLET PO SCH ×2 (08:37→21:31)
[2020-04-18] MEDS: BRIMONIDINE/TIMOLOL OPH SOLN 5 ML BOTTLE BOTH EYES SCH ×2 (08:37→21:31)
[2020-04-18] MEDS: GLIMEPIRIDE 2 MG TABLET PO SCH ×2 (08:37→16:15)
[2020-04-18] MEDS: FAMOTIDINE 20 MG TABLET PO SCH ×2 (08:37→21:31)
[2020-04-18] MEDS: SODIUM CHLOR 0.9% KCL 20 MEQ 20 MEQ/1,000 ML BAG IV SCH (11:43)
[2020-04-18] MEDS: BIMATOPROST 0.01% OPH SOLN 2.5 ML BOTTLE BOTH EYES SCH (21:31)
[2020-04-19] MEDS: metroNIDAZOLE INJ 500 MG in PREMIX 1 EACH IV SCH ×5 (00:28→23:20)
[2020-04-19] MEDS: SODIUM CHLOR 0.9% KCL 20 MEQ 20 MEQ/1,000 ML BAG IV SCH ×2 (00:28→15:31)
[2020-04-19] MEDS: LEVOTHYROXINE 100 MCG TABLET PO SCH (06:01)
[2020-04-19] MEDS: PANTOPRAZOLE 40 MG TABLET PO SCH (09:47)
[2020-04-19] MEDS: ISOSORBIDE MONONITRATE 30 MG TABLET PO SCH (09:48)
[2020-04-19] MEDS: LOSARTAN 25 MG TABLET PO SCH ×2 (09:48→21:11)
[2020-04-19] MEDS: ASCORBIC ACID 500 MG TABLET PO SCH (09:48)
[2020-04-19] MEDS: FUROSEMIDE 40 MG TABLET PO SCH (09:48)
[2020-04-19] MEDS: ASPIRIN CHEW 81 MG TABLET PO SCH (09:48)
[2020-04-19] MEDS: MULTIVITAMIN (CENTRUM) TABLET PO SCH (09:48)
[2020-04-19] MEDS: GLIMEPIRIDE 2 MG TABLET PO SCH ×2 (09:48→18:08)
[2020-04-19] MEDS: carvediloL 6.25 MG TABLET PO SCH ×2 (09:48→21:11)
[2020-04-19] MEDS: FAMOTIDINE 20 MG TABLET PO SCH ×2 (09:48→21:11)
[2020-04-19] MEDS: BRIMONIDINE/TIMOLOL OPH SOLN 5 ML BOTTLE BOTH EYES SCH ×2 (09:49→21:12)
[2020-04-19] MEDS: LEVOFLOXACIN INJ 500 MG in PREMIX 1 EACH IV SCH (09:50)
[2020-04-19] MEDS: BIMATOPROST 0.01% OPH SOLN 2.5 ML BOTTLE BOTH EYES SCH (21:12)
[2020-04-20] MEDS: LORazepam 1 MG TABLET PO PRN (02:52)
[2020-04-20] MEDS: ACETAMINOPHEN 325 MG TABLET PO PRN (02:53)
[2020-04-20] MEDS: metroNIDAZOLE INJ 500 MG in PREMIX 1 EACH IV SCH (05:47)
[2020-04-20] MEDS: SODIUM CHLOR 0.9% KCL 20 MEQ 20 MEQ/1,000 ML BAG IV SCH (05:48)
[2020-04-20] MEDS: LEVOTHYROXINE 100 MCG TABLET PO SCH (06:21)
[2020-04-20 07:19] VITALS: BP 127/66
[2020-04-20] MEDS: PANTOPRAZOLE 40 MG TABLET PO SCH (09:28)
[2020-04-20] MEDS: ISOSORBIDE MONONITRATE 30 MG TABLET PO SCH (09:28)
[2020-04-20] MEDS: carvediloL 6.25 MG TABLET PO SCH (09:28)
[2020-04-20] MEDS: ASCORBIC ACID 500 MG TABLET PO SCH (09:28)
[2020-04-20] MEDS: LEVOFLOXACIN INJ 500 MG in PREMIX 1 EACH IV SCH (09:28)
[2020-04-20] MEDS: ASPIRIN CHEW 81 MG TABLET PO SCH (09:28)
[2020-04-20] MEDS: BRIMONIDINE/TIMOLOL OPH SOLN 5 ML BOTTLE BOTH EYES SCH (09:28)
[2020-04-20] MEDS: FUROSEMIDE 40 MG TABLET PO SCH (09:28)
[2020-04-20] MEDS: GLIMEPIRIDE 2 MG TABLET PO SCH (09:28)
[2020-04-20] MEDS: FAMOTIDINE 20 MG TABLET PO SCH (09:28)
[2020-04-20] MEDS: MULTIVITAMIN (CENTRUM) TABLET PO SCH (09:28)
[2020-04-20] MEDS: LOSARTAN 25 MG TABLET PO SCH (09:29)
== END 2020-04-20 11:26 | disposition home health service (06) | DRG 478 ==
LOC: N.ED 04:02 → N.EDINP 07:45 → N.3E 16:52
PROVIDERS: ADMIT Family Medicine; ATTEND Family Medicine

== ENCOUNTER 2020-04-29 13:00 | Inpatient (IN) ==
[2020-04-29] MEDS ORDERED: SODIUM CHLORIDE 0.9% 1,000 ML IV STA (13:34)
[2020-04-29 13:44] LABS: Basophils # 0.1 10*3/uL (0.0-0.2); Basophils % 0.5 % (0.0-0.8); Eosinophils # 0.3 10*3/uL (0.0-0.87); Eosinophils % 2.2 % (0.00-10.9); Hemoglobin 13.9 GM/DL (12.0-16.0); Immature Granulocytes % 0.7 %; Immature Granulocytes Absolute 0.09 #; Lymphocytes % 7.3 % (21.3-54.2); Mean Corpuscular HGB Conc 32.3 GM/DL (32-36); Mean Corpuscular Volume 98.4 FL (87-102); Mean Platelet Volume 10.3 FL (9.6-12.0); Monocytes % 8.2 % (1.7-12.7); Neutrophils % 81.1 % (38.7-73.9); Platelet Count 286 T/CUMM (130-400); Red Blood Count 4.37 MC/CUMM (3.8-5.5); Red Cell Distribution Width 17.8 % (9.3-17.3); White Blood Count 13.1 T/CUMM (4-12)
[2020-04-29 14:34] LABS: Osmolality,Calculated 269.2 MOS/KG (273-304)
[2020-04-29 14:37] LABS: Apearance,Urine Slightly Hazy (Clear); Bacteria,Urine Occasional /HPF (Few); Bilirubin,Urine Negative (Negative); Blood, Urine Negative (Negative); Glucose,Urine (UA) Negative (Negative); Hyaline Casts,Urine 16 /LPF (0-3); Ketones,Urine Negative (Negative); Mucus,Urine Occasional /LPF (Occasional); Nitrite,Urine Negative (Negative); Protein,Urine Negative; RBC,Urine 2 /HPF (0-4); Squamous Epithelial Cell,Urine Occasional /HPF (0-10); Urine Color Yellow (Yellow); Urine Specific Gravity 1.008 (1.001-1.035); Urine Urobilinogen < 2.0 EU/DL (0.2-1.0); WBC,Urine 26 /HPF (0-6)
[2020-04-29] MEDS ORDERED: ONDANSETRON 4 MG/2 ML VIAL IV PRN (15:58)
[2020-04-29] MEDS ORDERED: ALBUTEROL 2.5 MG/3 ML NEB RESP TX PRN (16:07)
[2020-04-29] MEDS ORDERED: NITROGLYCERIN SL 0.4 MG TABLET SL PRN (16:07)
[2020-04-29] MEDS ORDERED: DEXTROMETHORPHAN ER 6 MG/ML 90 ML/BOTTLE PO PRN (16:07)
[2020-04-29] MEDS ORDERED: DOCUSATE CALCIUM 240 MG CAPSULE PO PRN ×2 (16:07→19:30)
[2020-04-29] MEDS ORDERED: LEVOFLOXACIN INJ 500 MG in PREMIX 1 EACH IV SCH (17:00)
[2020-04-29] MEDS: GLIMEPIRIDE 2 MG TABLET PO SCH (18:52)
[2020-04-29] MEDS: METHENAMINE HIPPURATE 1 GM TABLET PO SCH (21:49)
[2020-04-29] MEDS: BRIMONIDINE/TIMOLOL OPH SOLN 5 ML BOTTLE BOTH EYES SCH (21:49)
[2020-04-29] MEDS: DOCUSATE SODIUM 100 MG CAPSULE PO SCH (21:49)
[2020-04-29] MEDS: BIMATOPROST 0.01% OPH SOLN 2.5 ML BOTTLE BOTH EYES SCH (21:49)
[2020-04-29] MEDS: LEVOFLOXACIN INJ 500 MG in PREMIX 1 EACH IV SCH (21:49)
[2020-04-29] MEDS: carvediloL 6.25 MG TABLET PO SCH (21:49)
[2020-04-29] MEDS: APIXABAN 5 MG TABLET PO SCH (21:49)
[2020-04-29] MEDS: LOSARTAN 25 MG TABLET PO SCH (21:49)
[2020-04-30] MEDS: GLIMEPIRIDE 2 MG TABLET PO SCH ×2 (09:40→17:30)
[2020-04-30] MEDS: LEVOTHYROXINE 100 MCG TABLET PO SCH (09:40)
[2020-04-30] MEDS: carvediloL 6.25 MG TABLET PO SCH ×2 (09:41→17:30)
[2020-04-30] MEDS: ISOSORBIDE MONONITRATE 30 MG TABLET PO SCH (09:41)
[2020-04-30] MEDS: DOCUSATE SODIUM 100 MG CAPSULE PO SCH ×2 (09:41→21:52)
[2020-04-30] MEDS: MULTIVITAMIN (CENTRUM) TABLET PO SCH (09:41)
[2020-04-30] MEDS: FUROSEMIDE 40 MG TABLET PO SCH (09:41)
[2020-04-30] MEDS: PANTOPRAZOLE 40 MG TABLET PO SCH (09:41)
[2020-04-30] MEDS: METHENAMINE HIPPURATE 1 GM TABLET PO SCH ×2 (09:41→21:34)
[2020-04-30] MEDS: LOSARTAN 25 MG TABLET PO SCH ×2 (09:41→21:34)
[2020-04-30] MEDS: BRIMONIDINE/TIMOLOL OPH SOLN 5 ML BOTTLE BOTH EYES SCH ×2 (09:41→21:38)
[2020-04-30] MEDS: ASCORBIC ACID 500 MG TABLET PO SCH (09:41)
[2020-04-30] MEDS: APIXABAN 5 MG TABLET PO SCH ×2 (09:41→21:35)
[2020-04-30] MEDS: ASPIRIN CHEW 81 MG TABLET PO SCH (09:41)
[2020-04-30 10:52] LABS: Basophils # 0.1 10*3/uL (0.0-0.2); Basophils % 0.5 % (0.0-0.8); Eosinophils # 0.3 10*3/uL (0.0-0.87); Eosinophils % 2.3 % (0.00-10.9); Hemoglobin 13.3 GM/DL (12.0-16.0); Immature Granulocytes % 0.5 %; Immature Granulocytes Absolute 0.06 #; Lymphocytes # 0.8 10*3/uL (1.4-4.0); Lymphocytes % 7.2 % (21.3-54.2); Mean Corpuscular HGB Conc 33.3 GM/DL (32-36); Mean Corpuscular Volume 96.9 FL (87-102); Mean Platelet Volume 9.5 FL (9.6-12.0); Monocytes % 9.2 % (1.7-12.7); Neutrophils % 80.3 % (38.7-73.9); Platelet Count 243 T/CUMM (130-400); Red Blood Count 4.13 MC/CUMM (3.8-5.5); Red Cell Distribution Width 17.7 % (9.3-17.3); White Blood Count 11.5 T/CUMM (4-12)
[2020-04-30 11:09] LABS: Albumin 2.3 G/DL (3.4-5.0); Bilirubin,Total 0.4 MG/DL (0.2-1.0); Calcium 8.2 MG/DL (8.5-10.1); Osmolality,Calculated 274.7 MOS/KG (273-304); Total Protein 5.8 G/DL (6.4-8.3)
[2020-04-30] MEDS: INSULIN LISPRO 100 UNIT/ML SUBCUT SCH ×2 (17:30→21:53)
[2020-04-30] MEDS: BIMATOPROST 0.01% OPH SOLN 2.5 ML BOTTLE BOTH EYES SCH (21:38)
[2020-04-30] MEDS: LEVOFLOXACIN INJ 500 MG in PREMIX 1 EACH IV SCH (21:53)
[2020-05-01 04:55] LABS: Basophils % 0.4 % (0.0-0.8); Eosinophils # 0.3 10*3/uL (0.0-0.87); Eosinophils % 2.8 % (0.00-10.9); Hematocrit 41.8 VOL% (35.7-47.0); Hemoglobin 13.3 GM/DL (12.0-16.0); Immature Granulocytes % 0.6 %; Immature Granulocytes Absolute 0.07 #; Lymphocytes # 1.4 10*3/uL (1.4-4.0); Lymphocytes % 12.4 % (21.3-54.2); Mean Corpuscular HGB Conc 31.8 GM/DL (32-36); Mean Corpuscular Volume 98.6 FL (87-102); Mean Platelet Volume 9.3 FL (9.6-12.0); Monocytes % 11.1 % (1.7-12.7); Neutrophils % 72.7 % (38.7-73.9); Platelet Count 274 T/CUMM (130-400); Red Blood Count 4.24 MC/CUMM (3.8-5.5); Red Cell Distribution Width 17.7 % (9.3-17.3)
[2020-05-01 05:22] LABS: Calcium 8.3 MG/DL (8.5-10.1); Osmolality,Calculated 268.8 MOS/KG (273-304); Risk Ratio 4.65; Thyroid Stimulating Hormone 9.61 uIU/ml (0.358-3.74); VLDL CHOLESTEROL 24.2 MG/DL
[2020-05-01] MEDS ORDERED: GLUCAGON 1 MG VIAL IV PRN (08:01)
[2020-05-01] MEDS: GLIMEPIRIDE 2 MG TABLET PO SCH ×2 (08:11→16:17)
[2020-05-01] MEDS: INSULIN LISPRO 100 UNIT/ML SUBCUT SCH ×4 (08:11→22:11)
[2020-05-01] MEDS: LEVOTHYROXINE 100 MCG TABLET PO SCH (08:11)
[2020-05-01] MEDS: BRIMONIDINE/TIMOLOL OPH SOLN 5 ML BOTTLE BOTH EYES SCH ×2 (08:12→21:10)
[2020-05-01] MEDS: carvediloL 6.25 MG TABLET PO SCH ×2 (08:12→16:17)
[2020-05-01] MEDS: MULTIVITAMIN (CENTRUM) TABLET PO SCH (08:12)
[2020-05-01] MEDS: ASPIRIN CHEW 81 MG TABLET PO SCH (08:12)
[2020-05-01] MEDS: DOCUSATE SODIUM 100 MG CAPSULE PO SCH ×2 (08:12→21:10)
[2020-05-01] MEDS: ISOSORBIDE MONONITRATE 30 MG TABLET PO SCH (08:13)
[2020-05-01] MEDS: LOSARTAN 25 MG TABLET PO SCH ×2 (08:13→22:11)
[2020-05-01] MEDS: FUROSEMIDE 40 MG TABLET PO SCH (08:13)
[2020-05-01] MEDS: ASCORBIC ACID 500 MG TABLET PO SCH (08:13)
[2020-05-01] MEDS: PANTOPRAZOLE 40 MG TABLET PO SCH (08:13)
[2020-05-01] MEDS: APIXABAN 5 MG TABLET PO SCH ×2 (08:13→21:10)
[2020-05-01] MEDS: METHENAMINE HIPPURATE 1 GM TABLET PO SCH ×2 (08:14→21:10)
[2020-05-01] MEDS ORDERED: FUROSEMIDE 40 MG/4 ML VIAL IV ONE (13:19)
[2020-05-01] MEDS ORDERED: ZINC OXIDE PASTE 113 GM TUBE TOP PRN (14:23)
[2020-05-01] MEDS: BIMATOPROST 0.01% OPH SOLN 2.5 ML BOTTLE BOTH EYES SCH (21:10)
[2020-05-01] MEDS: LEVOFLOXACIN INJ 500 MG in PREMIX 1 EACH IV SCH (21:28)
[2020-05-02] MEDS: INSULIN LISPRO 100 UNIT/ML SUBCUT SCH ×4 (08:52→21:50)
[2020-05-02] MEDS: ISOSORBIDE MONONITRATE 30 MG TABLET PO SCH (08:54)
[2020-05-02] MEDS: METHENAMINE HIPPURATE 1 GM TABLET PO SCH ×2 (08:54→21:49)
[2020-05-02] MEDS: GLIMEPIRIDE 2 MG TABLET PO SCH ×2 (08:54→16:21)
[2020-05-02] MEDS: MULTIVITAMIN (CENTRUM) TABLET PO SCH (08:54)
[2020-05-02] MEDS: ASCORBIC ACID 500 MG TABLET PO SCH (08:54)
[2020-05-02] MEDS: DOCUSATE SODIUM 100 MG CAPSULE PO SCH ×2 (08:55→21:50)
[2020-05-02] MEDS: PANTOPRAZOLE 40 MG TABLET PO SCH (08:55)
[2020-05-02] MEDS: FUROSEMIDE 40 MG TABLET PO SCH (08:55)
[2020-05-02] MEDS: APIXABAN 5 MG TABLET PO SCH ×2 (08:55→21:49)
[2020-05-02] MEDS: carvediloL 6.25 MG TABLET PO SCH ×2 (08:55→16:21)
[2020-05-02] MEDS: LOSARTAN 25 MG TABLET PO SCH ×2 (08:55→21:50)
[2020-05-02] MEDS: ASPIRIN CHEW 81 MG TABLET PO SCH (08:55)
[2020-05-02] MEDS: BRIMONIDINE/TIMOLOL OPH SOLN 5 ML BOTTLE BOTH EYES SCH ×2 (09:07→21:50)
[2020-05-02] MEDS: LEVOFLOXACIN INJ 500 MG in PREMIX 1 EACH IV SCH (21:43)
[2020-05-02] MEDS: BIMATOPROST 0.01% OPH SOLN 2.5 ML BOTTLE BOTH EYES SCH (21:50)
[2020-05-03] MEDS: LEVOTHYROXINE 112 MCG TABLET PO SCH (05:33)
[2020-05-03] MEDS: INSULIN LISPRO 100 UNIT/ML SUBCUT SCH ×4 (07:59→20:15)
[2020-05-03] MEDS: MEROPENEM 500 MG in SODIUM CHLORIDE 0.9% 100 ML IV SCH ×4 (10:25→20:14)
[2020-05-03] MEDS: GLIMEPIRIDE 2 MG TABLET PO SCH ×2 (10:26→17:45)
[2020-05-03] MEDS: PANTOPRAZOLE 40 MG TABLET PO SCH (10:26)
[2020-05-03] MEDS: DOCUSATE SODIUM 100 MG CAPSULE PO SCH ×2 (10:26→20:13)
[2020-05-03] MEDS: carvediloL 6.25 MG TABLET PO SCH ×2 (10:26→17:45)
[2020-05-03] MEDS: APIXABAN 5 MG TABLET PO SCH ×2 (10:26→20:13)
[2020-05-03] MEDS: FUROSEMIDE 40 MG TABLET PO SCH (10:26)
[2020-05-03] MEDS: LOSARTAN 25 MG TABLET PO SCH ×2 (10:27→20:13)
[2020-05-03] MEDS: ASCORBIC ACID 500 MG TABLET PO SCH (10:27)
[2020-05-03] MEDS: ASPIRIN CHEW 81 MG TABLET PO SCH (10:27)
[2020-05-03] MEDS: MULTIVITAMIN (CENTRUM) TABLET PO SCH (10:27)
[2020-05-03] MEDS: METHENAMINE HIPPURATE 1 GM TABLET PO SCH ×2 (10:27→20:15)
[2020-05-03] MEDS: BRIMONIDINE/TIMOLOL OPH SOLN 5 ML BOTTLE BOTH EYES SCH ×2 (10:27→20:14)
[2020-05-03] MEDS: ISOSORBIDE MONONITRATE 30 MG TABLET PO SCH (10:27)
[2020-05-03] MEDS: BIMATOPROST 0.01% OPH SOLN 2.5 ML BOTTLE BOTH EYES SCH (20:14)
[2020-05-04] MEDS: MEROPENEM 500 MG in SODIUM CHLORIDE 0.9% 100 ML IV SCH ×4 (01:23→20:39)
[2020-05-04] MEDS: ACETAMINOPHEN 325 MG TABLET PO PRN (04:38)
[2020-05-04] MEDS: LEVOTHYROXINE 112 MCG TABLET PO SCH (05:34)
[2020-05-04] MEDS: INSULIN LISPRO 100 UNIT/ML SUBCUT SCH ×4 (08:06→20:39)
[2020-05-04] MEDS: GLIMEPIRIDE 2 MG TABLET PO SCH ×2 (08:49→17:16)
[2020-05-04] MEDS: ASCORBIC ACID 500 MG TABLET PO SCH (08:49)
[2020-05-04] MEDS: DOCUSATE SODIUM 100 MG CAPSULE PO SCH ×2 (08:49→20:38)
[2020-05-04] MEDS: FUROSEMIDE 40 MG TABLET PO SCH (08:49)
[2020-05-04] MEDS: LOSARTAN 25 MG TABLET PO SCH ×2 (08:49→20:38)
[2020-05-04] MEDS: ASPIRIN CHEW 81 MG TABLET PO SCH (08:49)
[2020-05-04] MEDS: ISOSORBIDE MONONITRATE 30 MG TABLET PO SCH (08:49)
[2020-05-04] MEDS: MULTIVITAMIN (CENTRUM) TABLET PO SCH (08:49)
[2020-05-04] MEDS: METHENAMINE HIPPURATE 1 GM TABLET PO SCH ×2 (08:49→20:43)
[2020-05-04] MEDS: PANTOPRAZOLE 40 MG TABLET PO SCH (08:49)
[2020-05-04] MEDS: carvediloL 6.25 MG TABLET PO SCH ×2 (08:50→17:13)
[2020-05-04] MEDS: APIXABAN 5 MG TABLET PO SCH ×2 (08:50→20:38)
[2020-05-04] MEDS: BRIMONIDINE/TIMOLOL OPH SOLN 5 ML BOTTLE BOTH EYES SCH ×2 (08:50→20:39)
[2020-05-04] MEDS: BIMATOPROST 0.01% OPH SOLN 2.5 ML BOTTLE BOTH EYES SCH (20:39)
[2020-05-05] MEDS: MEROPENEM 500 MG in SODIUM CHLORIDE 0.9% 100 ML IV SCH ×4 (02:15→20:26)
[2020-05-05] MEDS: LEVOTHYROXINE 112 MCG TABLET PO SCH (05:45)
[2020-05-05] MEDS: GLIMEPIRIDE 2 MG TABLET PO SCH ×2 (10:36→16:00)
[2020-05-05] MEDS: INSULIN LISPRO 100 UNIT/ML SUBCUT SCH ×4 (10:36→21:16)
[2020-05-05] MEDS: DOCUSATE SODIUM 100 MG CAPSULE PO SCH ×2 (10:37→20:26)
[2020-05-05] MEDS: ASPIRIN CHEW 81 MG TABLET PO SCH (10:37)
[2020-05-05] MEDS: APIXABAN 5 MG TABLET PO SCH ×2 (10:37→20:26)
[2020-05-05] MEDS: MULTIVITAMIN (CENTRUM) TABLET PO SCH (10:37)
[2020-05-05] MEDS: LOSARTAN 25 MG TABLET PO SCH ×2 (10:37→20:26)
[2020-05-05] MEDS: BRIMONIDINE/TIMOLOL OPH SOLN 5 ML BOTTLE BOTH EYES SCH ×2 (10:37→20:26)
[2020-05-05] MEDS: ISOSORBIDE MONONITRATE 30 MG TABLET PO SCH (10:38)
[2020-05-05] MEDS: METHENAMINE HIPPURATE 1 GM TABLET PO SCH ×2 (10:38→20:26)
[2020-05-05] MEDS: FUROSEMIDE 40 MG TABLET PO SCH (10:38)
[2020-05-05] MEDS: PANTOPRAZOLE 40 MG TABLET PO SCH (10:41)
[2020-05-05] MEDS: carvediloL 6.25 MG TABLET PO SCH ×2 (10:41→17:25)
[2020-05-05] MEDS: ASCORBIC ACID 500 MG TABLET PO SCH (10:41)
[2020-05-05] MEDS ORDERED: TUBERCULIN SKIN TEST 0.1 ML SYRINGE INTRADERM ONE (13:45)
[2020-05-05] MEDS: BIMATOPROST 0.01% OPH SOLN 2.5 ML BOTTLE BOTH EYES SCH (20:26)
[2020-05-06] MEDS: MEROPENEM 500 MG in SODIUM CHLORIDE 0.9% 100 ML IV SCH ×4 (02:11→21:39)
[2020-05-06] MEDS: LEVOTHYROXINE 112 MCG TABLET PO SCH (06:13)
[2020-05-06] MEDS: INSULIN LISPRO 100 UNIT/ML SUBCUT SCH ×4 (07:54→21:39)
[2020-05-06] MEDS: carvediloL 6.25 MG TABLET PO SCH ×2 (09:08→17:50)
[2020-05-06] MEDS: ASPIRIN CHEW 81 MG TABLET PO SCH (09:08)
[2020-05-06] MEDS: GLIMEPIRIDE 2 MG TABLET PO SCH ×2 (09:08→17:50)
[2020-05-06] MEDS: MULTIVITAMIN (CENTRUM) TABLET PO SCH (09:08)
[2020-05-06] MEDS: PANTOPRAZOLE 40 MG TABLET PO SCH (09:09)
[2020-05-06] MEDS: DOCUSATE SODIUM 100 MG CAPSULE PO SCH ×2 (09:09→21:38)
[2020-05-06] MEDS: METHENAMINE HIPPURATE 1 GM TABLET PO SCH ×2 (09:09→21:38)
[2020-05-06] MEDS: LOSARTAN 25 MG TABLET PO SCH (09:09)
[2020-05-06] MEDS: APIXABAN 5 MG TABLET PO SCH ×2 (09:09→21:38)
[2020-05-06] MEDS: BRIMONIDINE/TIMOLOL OPH SOLN 5 ML BOTTLE BOTH EYES SCH ×2 (09:09→21:38)
[2020-05-06] MEDS: ASCORBIC ACID 500 MG TABLET PO SCH (09:09)
[2020-05-06] MEDS: FUROSEMIDE 40 MG TABLET PO SCH (09:09)
[2020-05-06] MEDS: ISOSORBIDE MONONITRATE 30 MG TABLET PO SCH (09:09)
[2020-05-06] MEDS: BIMATOPROST 0.01% OPH SOLN 2.5 ML BOTTLE BOTH EYES SCH (21:39)
[2020-05-07] MEDS: MEROPENEM 500 MG in SODIUM CHLORIDE 0.9% 100 ML IV SCH ×4 (03:29→21:51)
[2020-05-07] MEDS: LEVOTHYROXINE 112 MCG TABLET PO SCH (05:38)
[2020-05-07 06:01] LABS: Basophils # 0.1 10*3/uL (0.0-0.2); Basophils % 0.6 % (0.0-0.8); Eosinophils # 0.5 10*3/uL (0.0-0.87); Eosinophils % 5.3 % (0.00-10.9); Hematocrit 44.4 VOL% (35.7-47.0); Hemoglobin 14.1 GM/DL (12.0-16.0); Lymphocytes # 1.4 10*3/uL (1.4-4.0); Lymphocytes % 13.3 % (21.3-54.2); Mean Corpuscular HGB Conc 31.8 GM/DL (32-36); Mean Corpuscular Volume 99.8 FL (87-102); Mean Platelet Volume 9.7 FL (9.6-12.0); Monocytes % 11.5 % (1.7-12.7); Neutrophils % 68.3 % (38.7-73.9); Platelet Count 249 T/CUMM (130-400); Red Blood Count 4.45 MC/CUMM (3.8-5.5); Red Cell Distribution Width 17.5 % (9.3-17.3); White Blood Count 10.3 T/CUMM (4-12)
[2020-05-07 06:18] LABS: Albumin 2.3 G/DL (3.4-5.0); Bilirubin,Total 0.7 MG/DL (0.2-1.0); Calcium 8.4 MG/DL (8.5-10.1); Osmolality,Calculated 271.1 MOS/KG (273-304); Total Protein 6.2 G/DL (6.4-8.3)
[2020-05-07] MEDS: INSULIN LISPRO 100 UNIT/ML SUBCUT SCH ×4 (08:08→21:25)
[2020-05-07] MEDS: carvediloL 3.125 MG TABLET PO SCH (08:52)
[2020-05-07] MEDS: METHENAMINE HIPPURATE 1 GM TABLET PO SCH ×2 (08:53→21:25)
[2020-05-07] MEDS: GLIMEPIRIDE 2 MG TABLET PO SCH ×2 (08:53→16:36)
[2020-05-07] MEDS: MULTIVITAMIN (CENTRUM) TABLET PO SCH (08:53)
[2020-05-07] MEDS: ACETAMINOPHEN 325 MG TABLET PO PRN (08:54)
[2020-05-07] MEDS: ASPIRIN CHEW 81 MG TABLET PO SCH (08:54)
[2020-05-07] MEDS: LOSARTAN 25 MG TABLET PO SCH (08:55)
[2020-05-07] MEDS: DOCUSATE SODIUM 100 MG CAPSULE PO SCH ×4 (08:55→21:24)
[2020-05-07] MEDS: FUROSEMIDE 40 MG TABLET PO SCH (08:55)
[2020-05-07] MEDS: PANTOPRAZOLE 40 MG TABLET PO SCH (08:55)
[2020-05-07] MEDS: APIXABAN 5 MG TABLET PO SCH ×2 (08:56→21:25)
[2020-05-07] MEDS: BRIMONIDINE/TIMOLOL OPH SOLN 5 ML BOTTLE BOTH EYES SCH ×2 (08:56→21:24)
[2020-05-07] MEDS: ASCORBIC ACID 500 MG TABLET PO SCH (08:56)
[2020-05-07] MEDS ORDERED: traMADol 50 MG TABLET PO PRN (11:03)
[2020-05-07] MEDS ORDERED: HYDROCORTISONE 2.5% RECTAL CREAM 30 GM TUBE TOP STA (11:05)
[2020-05-07] MEDS: BISACODYL 5 MG TABLET PO SCH ×2 (11:20→21:25)
[2020-05-07] MEDS ORDERED: FUROSEMIDE 40 MG/4 ML VIAL IV ONE (13:42)
[2020-05-07] MEDS: SODIUM CHLORIDE 0.9% 1,000 ML IV SCH (14:27)
[2020-05-07] MEDS: HYDROCORTISONE 2.5% RECTAL CREAM 30 GM TUBE TOP SCH ×2 (14:39→21:24)
[2020-05-07] MEDS ORDERED: ALBUTEROL 2.5 MG/3 ML NEB RESP TX PRN (15:00)
[2020-05-07] MEDS: ALBUTEROL/IPRATROPIUM 3 ML NEB RESP TX SCH (19:30)
[2020-05-07] MEDS: BIMATOPROST 0.01% OPH SOLN 2.5 ML BOTTLE BOTH EYES SCH (21:25)
[2020-05-08] MEDS: MEROPENEM 500 MG in SODIUM CHLORIDE 0.9% 100 ML IV SCH ×2 (02:30→09:26)
[2020-05-08] MEDS: SODIUM CHLORIDE 0.9% 1,000 ML IV SCH (02:30)
[2020-05-08] MEDS: ALBUTEROL/IPRATROPIUM 3 ML NEB RESP TX SCH ×2 (02:40→07:57)
[2020-05-08 05:20] LABS: Basophils # 0.1 10*3/uL (0.0-0.2); Basophils % 0.5 % (0.0-0.8); Eosinophils # 0.5 10*3/uL (0.0-0.87); Hematocrit 42.1 VOL% (35.7-47.0); Hemoglobin 13.8 GM/DL (12.0-16.0); Immature Granulocytes % 0.6 %; Immature Granulocytes Absolute 0.06 #; Lymphocytes # 1.2 10*3/uL (1.4-4.0); Lymphocytes % 11.3 % (21.3-54.2); Mean Corpuscular HGB Conc 32.8 GM/DL (32-36); Mean Corpuscular Volume 96.3 FL (87-102); Mean Platelet Volume 9.5 FL (9.6-12.0); Monocytes % 11.1 % (1.7-12.7); Neutrophils % 71.5 % (38.7-73.9); Platelet Count 252 T/CUMM (130-400); Red Blood Count 4.37 MC/CUMM (3.8-5.5); Red Cell Distribution Width 17.3 % (9.3-17.3); White Blood Count 10.6 T/CUMM (4-12)
[2020-05-08 05:54] LABS: Bilirubin,Total 0.7 MG/DL (0.2-1.0); Calcium 8.3 MG/DL (8.5-10.1); Osmolality,Calculated 268.1 MOS/KG (273-304); Total Protein 5.8 G/DL (6.4-8.3)
[2020-05-08] MEDS: LEVOTHYROXINE 112 MCG TABLET PO SCH (06:26)
[2020-05-08 08:26] VITALS: BP 123/63
[2020-05-08] MEDS: INSULIN LISPRO 100 UNIT/ML SUBCUT SCH ×2 (08:50→12:03)
[2020-05-08] MEDS ORDERED: FUROSEMIDE 40 MG/4 ML VIAL IV SCH (09:00)
[2020-05-08] MEDS: PANTOPRAZOLE 40 MG TABLET PO SCH (09:24)
[2020-05-08] MEDS: GLIMEPIRIDE 2 MG TABLET PO SCH (09:24)
[2020-05-08] MEDS: carvediloL 3.125 MG TABLET PO SCH (09:24)
[2020-05-08] MEDS: ASPIRIN CHEW 81 MG TABLET PO SCH (09:24)
[2020-05-08] MEDS: DOCUSATE SODIUM 100 MG CAPSULE PO SCH ×2 (09:24→09:26)
[2020-05-08] MEDS: METHENAMINE HIPPURATE 1 GM TABLET PO SCH (09:25)
[2020-05-08] MEDS: APIXABAN 5 MG TABLET PO SCH (09:25)
[2020-05-08] MEDS: BISACODYL 5 MG TABLET PO SCH (09:25)
[2020-05-08] MEDS: MULTIVITAMIN (CENTRUM) TABLET PO SCH (09:25)
[2020-05-08] MEDS: LOSARTAN 25 MG TABLET PO SCH (09:25)
[2020-05-08] MEDS: ASCORBIC ACID 500 MG TABLET PO SCH (09:25)
[2020-05-08] MEDS: BRIMONIDINE/TIMOLOL OPH SOLN 5 ML BOTTLE BOTH EYES SCH (09:26)
[2020-05-08] MEDS: HYDROCORTISONE 2.5% RECTAL CREAM 30 GM TUBE TOP SCH (09:26)
== END 2020-05-08 11:31 | DRG 175 ==
LOC: EDUNIT# → EDBD → N.ED 13:00 → N.EDINP 15:58 → N.TELES 18:10
PROVIDERS: ADMIT Family Medicine; ATTEND Family Medicine